=== PATIENT | female | born 1950 | race Caucasian/White ===

== ENCOUNTER 2017-10-02 19:33 | Emergency (ER) | payer OTHER ==
--- OUTSIDE RECORDS SUMMARY | 2017-10-02 19:34 | XMS REPORT | Clinical Summary ---
:1950 Author Organization [facility] Address [address] [place] [id number] Care Team Providers Name Role Phone Domingo Thurman MD Primary Care Provider Allergies Not on File Current Medications Not on file Active Problems Not on file Encounters Date Type Specialty Care Team Description 01/03/2017 Lab Lab Garth Carreon MD Urinary tract infection, site not specified (Primary Dx) after 10/01/2016 Social History Tobacco Use Types Packs/Day Years Used Date Never Assessed Sex Assigned at Date Recorded Not on file Last Filed Vital Signs Not on file Plan of Treatment Health Maintenance Due Date Last Done Comments COLONOSCOPY 1998 MAMMOGRAM 1998 SHINGRIX VACCINE (#1) 1998 ZOSTER VACCINE 2008 PNEUMOCOCCAL POLYSACCHARIDE VACCINE AGE 65 AND OVER 2013 PNEUMOCOCCAL-13 2013 INFLUENZA VACCINE 12/27/2017 Results Gram stain (01/03/2017 3:44 PM) Component Value Ref Range Gram stain result Few WBC's Many Gram positive cocci in pairs Comment: Specimen Information Specimen Source: Urine Specimen Site: See UA Specimen Performing Laboratory Urine [facility] [address] [place] [address] Urine culture (01/03/2017 3:44 PM) Component Value Ref Range Urine culture isolate Enterococcus faecalis >10-5 cfu/ml The performance characteristics of this assay on this isolate were validated by the Microbiology Laboratory at [facility].This source has not been approved by the U.S. Food and Drug Administration.The results are not intended to be used as the sole means for clinical diagnosis or patient management.The Microbiology Laboratory is authorized under the clinical Laboratory Improvement Amendments of 1988 (CLIA-88) to perform high complexity testing. (A) Comment: Specimen Information Specimen Source: Urine Specimen Site: See UA Specimen Performing Laboratory Urine [facility] [address] [place] [id number] Organism Antibiotic Method Susceptibility Enterococcus faecalis Ampicillin LACHO 2 mcg/mL: Susceptible Enterococcus faecalis Nitrofurantoin LACHO <=16 mcg/mL: Susceptible Enterococcus faecalis Levofloxacin LACHO <=1 mcg/mL: Susceptible Enterococcus faecalis Linezolid LACHO <=1 mcg/mL: Susceptible Enterococcus faecalis Minocycline LACHO >8 mcg/mL: Resistant Enterococcus faecalis Tetracycline LACHO >8 mcg/mL: Resistant Enterococcus faecalis Vancomycin LACHO 1 mcg/mL: Susceptible Urinalysis screen and microscopy, with reflex to culture (01/03/2017 3:24 PM) Component Value Ref Range Specimen site Random void Color, UA Straw Appearance, UA Hazy Specific gravity, UA 1.015 1.001 - 1.035 pH, UA 6.0 5.0 - 8.5 Protein, UA Negative Negative Glucose, UA 3+ (A) Negative Ketones, UA Negative Negative Bilirubin, UA Negative Negative Blood, UA Negative Negative Nitrite, UA Negative Negative Urobilinogen, UA <2.0 <2.0 Leukocyte esterase, UA Moderate (A) Negative Epithelial cells, UA <1 /HPF WBC, UA 39 (H) 0 - 4 /HPF RBC, UA <1 0 - 2 /HPF Bacteria, UA Few None seen Yeast, UA None seen Yeast with pseudohyphae, UA None seen Specimen Performing Laboratory Urine [facility] [address] [place] [id number] after 10/01/2016 Insurance Payer Benefit Plan / Group Subscriber ID Type Phone Address [employer] MEDICARE AETNA MEDICARE HMO/PPO [facility] xxxxxxxx O [phone] [address]
[2017-10-02 21:31] LABS: Absolute Lymphocytes (CBC) 2.8 K/uL (0.7-4.9); Absolute Monocytes 0.8 K/uL (0.1-1.3); Absolute Neutrophil 7.2 K/uL (1.8-8.0); Basophils % 0.4 % (0-1.3); Eosinophils % 1.1 % (0-4.4); Hematocrit 42.2 % (36.0-45.0); Lymphocytes % 25.6 % (15.3-44.8); MCH 27.1 pg (27.0-35.0); MCV 81.9 fL (80-100); MPV 7.8 fL (7.6-11.3); RBC Red Blood Cell Count 5.16 M/uL (3.86-4.86)
[2017-10-02 21:43] LABS: Urine Blood TRACE (NEG); Urine Glucose NEGATIVE (NEG); Urine Protein NEGATIVE (NEG); Urine pH 6.5 (5.0-7.0)
[2017-10-02 21:43] LABS: Bicarbonate 26 mEq/L (21-31); Glucose Level 169 mg/dL (65-120); Potassium 3.9 mEq/L (3.6-5.0); Sodium Level 138 mEq/L (135-145)
[2017-10-02 21:49] LABS: ALT/SGPT 13 IU/L (10-60); AST/SGOT 22 IU/L (10-42); Albumin 4.1 g/dL (3.2-5.5); Alkaline Phosphatase 71 IU/L (42-121); BUN Blood Urea Nitrogen 13 mg/dL (6-20); Bilirubin Direct < 0.1 mg/dL (0-0.2); Bilirubin Total 0.4 mg/dL (0.3-1.2); Creatine Phosphokinase 34 IU/L (22-269); Magnesium 1.5 mg/dL (1.8-2.5); Protein, Total 7.1 g/dL (6.0-8.3)
[2017-10-02 21:51] LABS: CKMB Creatine Kinase MB 1.8 ng/ml (0.3-4.0)
[2017-10-02 21:53] LABS: Protime INR 0.92
[2017-10-02] MEDS ORDERED: MAGNESIUM SULFATE 1 gm IVPB 1 GM/100 ML BAG IV ONE (22:41)
--- NOTE | 2017-10-02 22:43 | RAD REPORT ---
EXAM DESCRIPTION: RAD - Chest Single View - 10/02/2017 9:09 pm CLINICAL HISTORY: Chest pain, hypertension COMPARISON: November 1999 TECHNIQUE: AP portable chest image was obtained 2105 hours . FINDINGS: Lungs are clear. Heart and vasculature are normal. No measurable pleural effusion and no p neumothorax. No gross bony abnormality seen. No acute aortic findings suspected. IMPRESSION: No acute cardiopulmonary process. No significant interval changes.
--- NOTE | 2017-10-02 22:49 | ER ---
Nurse's Notes [facility] Name: Faviola Balderas Age: 67 yrs Sex: Female : 1950 Arrival Date: 10/02/2017 Time: 19:34 Bed 5 Private MD: Diagnosis: Headache;Nausea;Essential (primary) hypertension;Hypomagnesemia Presentation: 10/02 19:39 Presenting complaint: Patient states: My BP has been running in the 200s, I have been la1 having palpations and nausea. Transition of care: patient was not received from another setting of care. Onset of symptoms was October 02, 2017. Initial Sepsis Screen: Does the patient meet any 2 criteria? No. Patient's initial sepsis screen is negative. Does the patient have a suspected source of infection? No. Patient's initial sepsis screen is negative. Care prior to arrival: None. 19:39 Method Of Arrival: Wheelchair la1 19:39 Acuity: MORIAH 2 la1 Historical: - Allergies: 19:40 Bactrim; la1 19:40 Macrobid; la1 19:40 Sulfa (Sulfonamide Antibiotics); la1 - PMHx: 19:40 Asthma; Diabetes - IDDM; Hypertension; la1 - Immunization history:: Adult Immunizations up to date. - Social history:: Smoking status: Patient/guardian denies using tobacco. - Family history:: not pertinent. Screenin:14 Abuse screen: Denies threats or abuse. Denies injuries from another. Nutritional ak1 screening: No deficits noted. Tuberculosis screening: No symptoms or risk factors identified. Fall Risk None identified. Assessment: 20:14 General: Appears in no apparent distress. Behavior is calm, cooperative. Pain: ak1 Complains of pain in headache. Neuro: Level of Consciousness is awake, alert, obeys commands, Oriented to person, place, time, situation, Electromyographic Technician are equal bilaterally Moves all extremities. Gait is steady, Speech is normal, Facial symmetry appears normal, Pupils are PERRLA. Cardiovascular: Chest pain is denied. Respiratory: Denies shortness of breath. GI: Abdomen is round Reports nausea. : No signs and/or symptoms were reported regarding the genitourinary system. EENT: No signs and/or symptoms were reported regarding the EENT system. Derm: No signs and/or symptoms reported regarding the dermatologic system. Musculoskeletal: No signs and/or symptoms reported regarding the musculoskeletal system. 22:01 Reassessment: Patient appears in no apparent distress at this time. No changes from ak1 previously documented assessment. Patient is alert, oriented x 3, equal unlabored respirations, skin warm/dry/pink. Vital Signs: 19:40 BP 166 / 77; Pulse 95; Resp 19; Temp 98.0(TE); Pulse Ox 100% on R/A; Weight 92.53 kg; la1 Height 5 ft. 2 in. (157.48 cm); 20:31 BP 169 / 72; Pulse 95; Resp 18; Pulse Ox 99% on R/A; Pain 0/10; ak1 21:22 BP 162 / 61; Pulse 78; Resp 18; Pulse Ox 95% on R/A; Pain 0/10; mg2 22:39 BP 150 / 62; Pulse 72; Resp 18; Pulse Ox 99% on R/A; mt 19:40 Body Mass Index 37.31 (92.53 kg, 157.48 cm) la1 20:31 pt denies headache at this time. pt denies any chest pain. ak1 ED Course: 19:34 Patient arrived in ED. ds1 19:40 Triage completed. la1 19:41 Arm band placed on left wrist. la1 20:11 José Luis Kaufman MD is Attending Physician. regi 20:14 Pricila Cardoso, RN is Primary Nurse. ak1 20:14 Patient has correct armband on for positive identification. Placed in gown. Bed in low ak1 position. Call light in reach. Side rails up X 1. curing finisher on. Pulse ox on. NIBP on. 20:31 Urine collected: EKG done. Inserted saline lock: 20 gauge in right antecubital area, ak1 using aseptic technique. Blood collected. 21:09 XRAY Chest (1 view) In Process Unspecified. EDMS 21:15 Lab(s) recollected, by me, sent to lab. mg2 23:07 No provider procedures requiring assistance completed. Inserted saline lock: 22 gauge mg2 in left hand, using aseptic technique. IV discontinued, intact, Pressure dressing applied, right AC IV infiltrated. IV d/c. resited. Administered Medications: 22:54 Drug: Magnesium Sulfate 1 grams Route: IVPB; Infused Over: 1 hrs; Site: right mg2 antecubital; 10/03 00:20 Follow up: IV Status: Completed infusion ak1 Outcome: 10/02 22:49 Discharge ordered by . regi 10/03 00:20 Discharged to home ambulatory, with family. ak1 Condition: good Discharge instructions given to patient, family, Instructed on discharge instructions, follow up and referral plans. no drinking with medication, no driving heavy equipment, medication usage, Demonstrated understanding of instructions, follow-up care, medications, Prescriptions given X 1. 00:21 Patient left the ED. ak1 Signatures: Dispatcher [employer] EDMS José Luis Kaufman MD MD cha Sanford, Demi ds1 Javier Seth RN RN la1 Pricila Cardoso RN RN sandi1 Kary Palmer mt, Michele RN RN mg2 Corrections: (The following items were deleted from the chart) 10/02 19:41 19:39 Acuity: MORIAH 3 la1 la1 23: 23:07 IV discontinued, intact, Pressure dressing applied, left AC IV infiltrated. IV mg2 d/c. resited. mg2 : 23:07 Inserted saline lock: 22 gauge in left hand, using aseptic technique. mg2 mg2
--- NOTE | 2017-10-02 22:49 | EDPHYS ---
Physician Documentation [facility] Name: Faviola Balderas Age: 67 yrs Sex: Female : 1950 Arrival Date: 10/02/2017 Time: 19:34 Bed 5 Private MD: ED Physician José Luis Kaufman HPI: 10/02 21:09 This 67 yrs old Female presents to ER via Wheelchair with complaints of High regi Blood Pressure, Nausea, Irregular Pulse. 21:09 The patient has elevated blood pressure and discovered this at home. Onset: The regi symptoms/episode began/occurred 2 day(s) ago. Modifying factors: The symptoms are aggravated by activity, The symptoms are alleviated by remaining still. Associated signs and symptoms: Pertinent positives: headache, nausea. Severity of symptoms: At its worst the blood pressure was in the emergency department the blood pressure is unchanged. The patient has not experienced similar symptoms in the past. Historical: - Allergies: 19:40 Bactrim; la1 19:40 Macrobid; la1 19:40 Sulfa (Sulfonamide Antibiotics); la1 - PMHx: 19:40 Asthma; Diabetes - IDDM; Hypertension; la1 - Immunization history:: Adult Immunizations up to date. - Social history:: Smoking status: Patient/guardian denies using tobacco. - Family history:: not pertinent. ROS: 21:09 Constitutional: Negative for fever, chills, and weight loss, Eyes: Negative for injury, regi pain, redness, and discharge, ENT: Negative for injury, pain, and discharge, Neck: Negative for injury, pain, and swelling, Cardiovascular: Negative for chest pain, palpitations, and edema, Respiratory: Negative for shortness of breath, cough, wheezing, and pleuritic chest pain, Back: Negative for injury and pain, : Negative for injury, bleeding, discharge, and swelling, MS/Extremity: Negative for injury and deformity, Skin: Negative for injury, rash, and discoloration, Psych: Negative for depression, anxiety, suicide ideation, homicidal ideation, and hallucinations, Allergy/Immunology: Negative for hives, rash, and allergies, Endocrine: Negative for neck swelling, polydipsia, polyuria, polyphagia, and marked weight changes, Hematologic/Lymphatic: Negative for swollen nodes, abnormal bleeding, and unusual bruising. 21:09 Abdomen/GI: Positive for nausea. 21:09 Neuro: Positive for headache. Exam: 21:09 Constitutional: This is a well developed, well nourished patient who is awake, alert, regi and in no acute distress. Head/Face: Normocephalic, atraumatic. Eyes: Pupils equal round and reactive to light, extra-ocular motions intact. Lids and lashes normal. Conjunctiva and sclera are non-icteric and not injected. Cornea within normal limits. Periorbital areas with no swelling, redness, or edema. ENT: Nares patent. No nasal discharge, no septal abnormalities noted. Tympanic membranes are normal and external auditory canals are clear. Oropharynx with no redness, swelling, or masses, exudates, or evidence of obstruction, uvula midline. Mucous membranes moist. Neck: Trachea midline, no thyromegaly or masses palpated, and no cervical lymphadenopathy. Supple, full range of motion without nuchal rigidity, or vertebral point tenderness. No Meningismus. Chest/axilla: Normal chest wall appearance and motion. Nontender with no deformity. No lesions are appreciated. Cardiovascular: Regular rate and rhythm with a normal S1 and S2. No gallops, murmurs, or rubs. Normal PMI, no JVD. No pulse deficits. Respiratory: Lungs have equal breath sounds bilaterally, clear to auscultation and percussion. No rales, rhonchi or wheezes noted. No increased work of breathing, no retractions or nasal flaring. Abdomen/GI: Soft, non-tender, with normal bowel sounds. No distension or tympany. No guarding or rebound. No evidence of tenderness throughout. Back: No spinal tenderness. No costovertebral tenderness. Full range of motion. Female : Normal external genitalia. Skin: Warm, dry with normal turgor. Normal color with no rashes, no lesions, and no evidence of cellulitis. MS/ Extremity: Pulses equal, no cyanosis. Neurovascular intact. Full, normal range of motion. Neuro: Awake and alert, GCS 15, oriented to person, place, time, and situation. Cranial nerves II-XII grossly intact. Motor strength 5/5 in all extremities. Sensory grossly intact. Cerebellar exam normal. Normal gait. Psych: Awake, alert, with orientation to person, place and time. Behavior, mood, and affect are within normal limits. Vital Signs: 19:40 BP 166 / 77; Pulse 95; Resp 19; Temp 98.0(TE); Pulse Ox 100% on R/A; Weight 92.53 kg; la1 Height 5 ft. 2 in. (157.48 cm); 20:31 BP 169 / 72; Pulse 95; Resp 18; Pulse Ox 99% on R/A; Pain 0/10; ak1 21:22 BP 162 / 61; Pulse 78; Resp 18; Pulse Ox 95% on R/A; Pain 0/10; mg2 22:39 BP 150 / 62; Pulse 72; Resp 18; Pulse Ox 99% on R/A; mt 19:40 Body Mass Index 37.31 (92.53 kg, 157.48 cm) la1 20:31 pt denies headache at this time. pt denies any chest pain. ak1 MDM: 20:11 Patient medically screened. [facility] 21:10 Data reviewed: vital signs, nurses notes, lab test result(s), EKG, radiologic studies, [facility] plain films. 10/02 20:40 Order name: Urine Dipstick--Ancillary (enter results); Complete Time: 22:29 [facility] 10/02 20:41 Order name: Basic Metabolic Panel; Complete Time: 22:29 ct 10/02 20:41 Order name: BNP; Complete Time: 22:29 ct 10/02 20:41 Order name: CBC with Diff; Complete Time: 21:41 ct 10/02 20:41 Order name: Ckmb; Complete Time: 22:29 ct 10/02 20:41 Order name: CPK; Complete Time: 22:29 ct 10/02 20:41 Order name: LFT's; Complete Time: 22:29 ct 10/02 20:41 Order name: Magnesium; Complete Time: 22:29 ct 10/02 20:41 Order name: PT-INR; Complete Time: 22:29 ct 10/02 20:41 Order name: Ptt, Activated; Complete Time: 22:29 ct 10/02 20:41 Order name: Troponin (emerg Dept Use Only); Complete Time: 22:29 ct 10/02 21:08 Order name: TSH; Complete Time: 22:46 [facility] 10/02 22:48 Order name: Ckmb [facility] 10/02 22:48 Order name: Creatine Phosphokinase [facility] 10/02 19:44 Order name: EKG; Complete Time: 19:45 [facility] 10/02 19:44 Order name: EKG - Nurse/Tech; Complete Time: 19:44 [facility] 10/02 20:41 Order name: XRAY Chest (1 view); Complete Time: 22:46 ct 10/02 20:41 Order name: Cardiac monitoring; Complete Time: 20:48 ct 10/02 20:41 Order name: IV Saline Lock; Complete Time: 20:48 ct 10/02 20:41 Order name: Labs collected and sent; Complete Time: 20:48 ct 10/02 20:41 Order name: O2 Per Protocol; Complete Time: 20:48 ct 10/02 20:41 Order name: O2 Sat Monitoring; Complete Time: 20:48 ct 10/02 20:41 Order name: Urine Dipstick-Ancillary (obtain specimen); Complete Time: 20:54 ct 10/02 22:48 Order name: Troponin (emerg Dept Use Only); Complete Time: 00:03 [facility] 10/02 22:48 Order name: Repeat Cardiac Enzymes at: 1050pm; Complete Time: 00:19 [facility] Administered Medications: 22:54 Drug: Magnesium Sulfate 1 grams Route: IVPB; Infused Over: 1 hrs; Site: right mg2 antecubital; 10/03 00:20 Follow up: IV Status: Completed infusion ak1 Disposition: 10/02/17 22:49 Discharged to Home. Impression: Headache, Nausea, Essential (primary) hypertension, Hypomagnesemia. - Condition is Stable. - Discharge Instructions: Hypertension, Hypomagnesemia, Nausea, Adult, Hypertension, [id number], How to Take Your Blood Pressure, Lipq-[id number]-Akkf, Nausea, Adult, [id number], Managing Your High Blood Pressure. - Prescriptions for Zofran 4 mg Oral Tablet - take 1 tablet by ORAL route every 12 hours As needed; 10 tablet. - Medication Reconciliation Form, Thank You Letter, Antibiotic Education, Prescription Opioid Use form. - Follow up: Private Physician; When: 2 - 3 days; Reason: Recheck today's complaints, Continuance of care, Re-evaluation by your physician. - Problem is new. - Symptoms have improved. Signatures: Dispatcher [employer] EDJosé Luis Simms MD MD cha Attema, Lee RN RN amanda1 Pricila Cardoso RN RN sandi1 Kary Palmer ct Bryan Hernandez, RN RN mg2 Corrections: (The following items were deleted from the chart) 00:21 10/02 22:49 10/02/2017 22:49 Discharged to Home. Impression: Headache; Nausea; ak1 Essential (primary) hypertension; Hypomagnesemia. Condition is Stable. Forms are Medication Reconciliation Form, Thank You Letter, Antibiotic Education, Prescription Opioid Use. Follow up: Private Physician; When: 2 - 3 days; Reason: Recheck today's complaints, Continuance of care, Re-evaluation by your physician. Problem is new. Symptoms have improved. regi
[2017-10-02 23:40] LABS: CKMB Creatine Kinase MB 1.6 ng/ml (0.3-4.0)
--- NOTE | 2017-10-03 06:40 | EKG ---
Test Date: 2017-10-02 Test Time: 19:47:47 Rotary Soil Stabilizer: LA MEASUREMENT RESULTS: Intervals: Rate: 95 UT: 164 QRSD: 102 QT: 364 QTc: 457 [place]: P: 68 UT: 164 QRS: -17 T: 78 INTERPRETIVE STATEMENTS: Normal sinus rhythm Normal ECG Compared to ECG 07/19/1994 14:46:00 Myocardial infarct finding no longer present Electronically Signed On 10-03-17 06:40:06 CDT by Jesus Conrad
== END 2017-10-03 00:21 | disposition home or self-care (01) ==
LOC: ER 19:33
DX: I10 Essential (primary) hypertension (principal); R11.0 Nausea; E83.42 Hypomagnesemia; Z88.1 Allergy status to other antibiotic agents; Z88.2 Allergy status to sulfonamides; Z88.8 Allergy status to other drugs, medicaments and biological substances
CPT/HCPCS: 36415; 71045; 80048; 80076; 81003; 82550 ×2; 82553 ×2; 83735; 83880; 84443; 84484 ×2; 85025; 85610; 85730; 93005; 96365; 99285; J3475

== ENCOUNTER 2020-11-28 09:32 | Emergency (ER) | payer OTHER ==
--- OUTSIDE RECORDS SUMMARY | 2020-11-28 09:46 | XMS REPORT | Continuity of Care Document ---
:1950 Author Organization [facility] t Address [address] [place] [address] Care Team Providers Name Role Phone Kylee Thurman MD. Primary Care Physician Aquiles HERNANDEZ, Sondra. Attending Clinician Rolan Weber Attending Clinician Keli Hong Attending Clinician Cristiane Smith MD Attending Clinician Kylee Thurman Attending Clinician Grace Attending Clinician Payers Payer Name Policy Type Policy Effective Date Expiration Date Sour ce Number AETNA MEDICAREAETNA [id number] 2016 [place] on MEDICARE HMO/PPO 00:00:00 Methodis t [id number] -PresentHMO Problems Condition Condition Condition Status Onset Resolution Last Treating Co mments Source Name Details Category Date Date Treatment Clinician Date Q24.0 - Diagnosis Active 2019-052020-03-24 Me moria DEXTROCARD -27 10:33:00 l IA Q24.0 - 00:01: Tru DEXTROCARD 00 IA Active 0 MH OPID Tru DX: Diagnosis Active 2018-11-19 Mem oria K21.9=RIRI 6-14 09:24:00 l RO-ESOPHAG DX: 00:00: Levi n EAL REFLUX K21.9=RIRI 00 DISEA RO-ESOPHAG EAL REFLUX DISEA Active 11/09/2018 [facility] EGD / Diagnosis Active 2018-11-23 Mem oria COLON / 6-11 07:09:00 l MAC EGD / 00:00: [place] COLON / 00 MAC Active 11/06/2018 [facility] Tru Z13.820 - Diagnosis Active 2018-08-27 Memoria ENCOUNTER 3-21 10:14:00 l FOR Z13.820 00:01: Tru SCREENING - 00 FOR OS ENCOUNTER FOR SCREENING FOR OS Active 08/16/2018 [facility] [place] Gastritis Problem Active 2019-11-24 Me moria (disorder) 1-17 23:28:12 l 00:00: [place] Gastritis 00 (disorder) Active 06/14/2016 Problem 11/24/2019 [facility], Haydee Erazo [facility], OPID [place] Recurrent Problem Active 2020-03-26 Me moria urinary 4-23 23:24:24 l tract 00:00: [place] infection Recurrent 00 (disorder) urinary tract infection (disorder) Active 09/18/2014 Problem 03/26/2020 Data migrated from [facility] on 12/03/14. Medical [facility], Haydee Erazo SUDNAY Ott,[facility] OPIDionna [place] GASTRITIS Condition Active 2014-08-14 Memoria 3- 09:00:00 l 00:00: [place] GASTRITIS 00 Active 08/14/2014 Condition 5 Medical Group BURSITIS, Condition Active 2014-08-14 Memoria LEFT 08-14 09:00:00 l SHOULDER 00:00: Tru BURSITIS, 00 LEFT SHOULDER Active 08/14/2014 Condition 5 [facility] VACCINATIO Condition Active 2013-052014-08-14 Memoria N AGAINST 2-03 09:00:00 l INFLUENZA 00:00: Tru VACCINATIO 00 N AGAINST INFLUENZA Active 04/30/2014 Condition 5 [facility] Type II Problem Active 2020-03-26 Myles deni diabetes 9-03 23:24:24 l mellitus Type II 00:00: Marlene nn uncontroll diabetes 00 ed mellitus (finding) uncontroll ed (finding) Active 01/29/2014 Problem 03/26/2020 Data migrated from [employer] on 10/25/14. Medical Group, Haydee Erazo,[facility], [facility] [place] DIABETES Condition Active 2014-08-14 M emoria MELLITUS, 01-29 09:00:00 l TYPE II, DIABETES 00:00: Herm gilberto UNCONTROLL MELLITUS, 00 ED TYPE II, UNCONTROLL ED Active 4 Condition 08/14/2014 Medical Group Edema of Problem Active 2020-03-26 Mem oria lower 06-13 23:24:24 l extremity Edema of 00:00: Her de la garza (finding) lower 00 extremity (finding) Active 06/13/2013 Problem 03/26/2020 Data migrated from [employer] on 10/25/14. Medical [facility], Haydee Erazo,[facility], [facility] Simple Problem Active 2020-03-26 Memor ia obesity 06-13 23:24:24 l (disorder) Simple 00:00: Herm gilberto obesity 00 (disorder) Active 06/13/2013 Problem 03/26/2020 Data migrated from [employer] on 10/25/14. [facility], Haydee Erazo,[facility], [facility] [place] DEPENDENT Condition Active 2014-08-14 Memoria EDEMA, 06-13 09:00:00 l LEGS, 00:00: Tru BILATERAL DEPENDENT 00 EDEMA, LEGS, BILATERAL Active 06/13/2013 Condition 5 Medical Group EXOGENOUS Condition Active 2014-08-14 Memoria OBESITY - 09:00:00 l 00:00: [place] EXOGENOUS 00 OBESITY Active 06/13/2013 Condition 5 [facility] PREVENTIVE Condition Active 2012-052014-08-14 Memoria HEALTH 09:00:00 l CARE 00:00: [place] PREVENTIVE 00 HEALTH CARE Active 03/26/2013 Condition 5 [facility] Group Allergic Problem Active 2020-03-26 Mem oria rhinitis 02-25 23:24:24 l (disorder) Allergic 00:00: He rmann rhinitis 00 (disorder) Active 02/25/2013 Problem 03/26/2020 Data migrated from [employer] on 10/25/14. Medical Group,[facility] Eddie Ott,[facility], [facility] ALLERGIC Condition Active 2014-08-14 M emoria RHINITIS 02-25 09:00:00 l ALLERGIC 00:00: Levi n RHINITIS 00 Active 02/25/2013 Condition 5 Medical Group Hypothyroi Problem Active 2020-03-26 M emoria dism 01-04 23:24:24 l (disorder) 00:00: Levi n Hypothyroi 00 dism (disorder) Active 01/04/2013 Problem 03/26/2020 Data migrated from [employer] on 10/25/14. Medical Group,[facility], Eddie Ott,[facility], [facility] HYPOTHYROI Condition Active 2014-08-14 Memoria DISM 01-04 09:00:00 l 00:00: [place] HYPOTHYROI 00 DISM Active 01/04/[address] [facility] Gastrointe Problem Active 2019-11-24 M emoria stinal 23:28:12 l hemorrhage Levi n (disorder) Gastrointe stinal hemorrhage (disorder) Active Problem 11/24/2019 Medical Group,[facility] Asthma Problem Active 2020-03-26 Memor ia (disorder) 23:24:24 l Asthma Tru (disorder) Active Problem 03/26/2020 Data migrated from [employer] on 10/25/14. Medical Group,[facility], Eddie Ott,[facility], [facility] Dyslipidem Problem Active 2020-03-26 M emoria ia 23:24:24 l (disorder) Levi n Dyslipidem ia (disorder) Active Problem 03/26/2020 Data migrated from [employer] on 10/25/14. Medical Group,[facility], Eddie Ott,[facility], [facility] Gastroesop Problem Active 2020-03-26 M emoria hageal 23:24:24 l reflux Tru disease Gastroesop (disorder) hageal reflux disease (disorder) Active Problem 03/26/2020 Medical Group,[facility] Eddie Ott,[facility], [facility] [place] Hypertensi Problem Active 2020-03-26 M emoria ve 23:24:24 l disorder, Tru systemic Hypertensi arterial ve (disorder) disorder, systemic arterial (disorder) Active Problem 03/26/2020 Data migrated from [facility] on 10/25/14. Medical Group,[facility] Eddie Ott,[facility], [facility] [place] Trochanter Problem Active 2020-03-26 M emoria ic 23:24:24 l bursitis Tru (disorder) Trochanter ic bursitis (disorder) Active Problem 03/26/2020 Medical Group,[facility] Eddie Ott,[facility], [facility] [place] HYPERTENSI Condition Active 2014-08-14 Memoria ON 09:00:00 l Tru HYPERTENSI ON Active Condition 08/14/2014 Medical Group DYSLIPIDEM Condition Active 2014-08-14 Memoria IA 09:00:00 l Tru DYSLIPIDEM IA Active Condition 08/14/2014 Medical Group ASTHMA, Condition Active 2014-08-14 Me moria UNSPECIFIE 09:00:00 l D, ASTHMA, [place] UNSPECIFIE UNSPECIFIE D STATUS D, UNSPECIFIE D STATUS Active Condition 08/14/2014 Medical Group ACQUIRED Condition Active 2014-08-14 M emoria HEMOLYTIC 09:00:00 l ANEMIA ACQUIRED Levi n UNSPECIFIE HEMOLYTIC D ANEMIA UNSPECIFIE D Active Condition 08/14/2014 Medical Group DM Condition Inactiv 2014-08-14 Me moria e 09:00:00 l DM Tru Inactive Condition 5 Medical Group Disease of Problem Resolve 2020-03-26 Memoria thyroid d 23:24:24 l gland Disease [place] (disorder) of thyroid gland (disorder) Resolved Problem 03/26/2020 [facility] Group, [place], Eddie Ott,[facility], [facility] [place] History of Past Illness Condition Condition Condition Status Onset Resolution Last Treating Co mments Source Name Details Category Date Date Treatment Clinician Date DIARRHEA, Condition Inactiv 2012-2014-08-14 2014-08-14 Memoria CHRONIC e 02-25 09:00:00 09:00:00 l 00:00: Tru DIARRHEA, 00 CHRONIC Inactive 02/25/2013 Condition 5 [facility] Group ABDOMINAL Condition Inactiv 2014-08-14 2014-08-14 Memoria PAIN e 01-04 09:00:00 09:00:00 l 00:00: [place] ABDOMINAL 00 PAIN Inactive 01/04/2013 Condition 5 Medical Group PALPITATIO Condition Inactiv 2014-08-14 2014-08-14 Memoria NS e 01-04 09:00:00 09:00:00 l 00:00: [place] PALPITATIO 00 NS Inactive 01/04/2013 Condition 5 [facility] Group Allergies, Adverse Reactions, Alerts Allergy Allergy Status Severity Reaction(s) Onset Inactive Treating Comm ents Source Name Type Date Date Clinician sulfa sulfa Active Memoria drugs<quinones drugs<quinones l p>1</sup p>1</sup Levi n > > nitrofur nitrofur Active Memori a antoin antoin l Tru SULFA SULFA Active Memoria l [place] Social History Social Habit Start Date Stop Date Quantity Comments Source Social History 2018-11-23 2018-11-23 [facility] ermann 15:44:53 15:44:53 Sex [birth year] At [birth year] [facility] ethodist 00:00:00 00:00:00 Medications Ordered Filled Start Stop Current Ordering Indication Dosage Frequency Signature Comments Components Source Medication Medication Date Date Medication? Clinician (SIG) Name Name valacyclovi 2019-0 Yes 1 gm = 1 Me moria r 1000 MG 7-14 tab, PO, l Oral Tablet 19:42: BID, # 30 H ermann [Valtrex] 00 tab, 1 Refill(s), Pharmacy: [facility] #[id number], 157.48, cm, 12/10/19 10:52:00 CDT, Height, 98.182, kg, 12/10/19 10:52:00 CDT, Weight liothyronin 2019- Yes = 1 tab, Me moria e 25 mcg 7-14 PO, Daily, l oral tablet 19:41: # 90 tab, H ermann 00 3 Refill(s), Pharmacy: [facility] #[id number], 157.48, cm, 07/14/20 10:52:00 CDT, Height, 98.182, kg, 12/10/19 10:52:00 CDT, Weight montelukast 2020-0 Yes = 1 tab, Me moria 10 mg oral 7-14 PO, Daily, l tablet 19:41: # 90 tab, Levi n 00 3 Refill(s), Pharmacy: [facility] cy #[id number], 157.48, cm, 12/10/19 10:52:00 CDT, Height, 98.182, kg, 12/10/19 10:52:00 CDT, Weight pantoprazol 2020-0 Yes = 1 tab, Me moria e 40 mg 7-14 PO, BID, # l oral 19:41: 180 tab, 3 [place] enteric 00 Refill(s), coated Pharmacy: [id number], 157.48, cm, 12/10/19 10:52:00 CDT, Height, 98.182, kg, 12/10/19 10:52:00 CDT, Weight sitagliptin 2019- Yes = 1 tab, Me moria 100 MG Oral 7-14 PO, Daily, l Tablet 19:41: # 90 tab, Levi n [Januvia] 00 3 Refill(s), Pharmacy: [facility] #[id number], 157.48, cm, 12/10/19 10:52:00 CDT, Height, 98.182, kg, 12/10/19 10:52:00 CDT, Weight 3 ML 2019-0 Yes See Memoria insulin 7-14 Instructio l detemir 100 19:40: ns, INJECT [place] UNT/ML 00 50 UNITS Prefilled SUB-Q AM Syringe AND 30 [Levemir] UNITS IN THE EVENING ROTATE INJECTION SITES, # 15 mL, 6 Refill(s), MELA, Pharmacy: [id number], 157.48, cm, 12/10/19 10:52:00 CDT, Height, 98.182, kg, 12/10/19 10:52:00 CDT, Weight Levothyroxi 2020-0 Yes 125 Memori a ne Sodium 7-14 microgram l 0.125 MG 19:40: = 1 tab, Marlene nn Oral Tablet 00 PO, Daily, [Synthroid] X 90 day, # 90 tab, 3 Refill(s), MELA, Pharmacy: [id number], 157.48, cm, 12/10/19 10:52:00 CDT, Height, 98.182, kg, 12/10/19 10:52:00 CDT, Weight Advair 2020-0 Yes 1 puff, Memoria Diskus 250 7-14 INHALATION l mcg-50 mcg 19:39: , BID, # 3 H ermann inhalation 00 ea, 3 powder Refill(s), Pharmacy: [id number], 157.48, cm, 12/10/19 10:52:00 CDT, Height, 98.182, kg, 12/10/19 10:52:00 CDT, Weight glyBURIDE 5 2020-0 Yes 10 mg = 2 M emoria mg oral 7-14 tab, PO, l tablet 19:39: BID, # 360 Marlene nn 00 tab, 3 Refill(s), Pharmacy: [id number], 157.48, cm, 12/10/19 10:52:00 CDT, Height, 98.182, kg, 12/10/19 10:52:00 CDT, Weight Hydrochloro 2020-0 Yes 1 cap, PO, Memoria thiazide 25 7-14 Daily, # l MG / 19:39: 90 cap, 3 Tru Triamterene 00 Refill(s), 37.5 MG Pharmacy: [id number], 157.48, cm, 12/10/19 10:52:00 CDT, Height, 98.182, kg, 12/10/19 10:52:00 CDT, Weight Amlodipine 2020-0 Yes 1 cap, PO, M emoria 10 MG / 7-14 Daily, # l Benazepril 19:38: 90 cap, 3 He rmann hydrochlori 00 Refill(s), de 40 MG Pharmacy: [id number], 157.48, cm, 12/10/19 10:52:00 CDT, Height, 98.182, kg, 12/10/19 10:52:00 CDT, Weight atorvastati 2020-0 Yes 10 mg = 1 M emoria n 10 mg 7-14 tab, PO, l oral tablet 19:38: Daily, # He rmann 00 90 tab, 3 Refill(s), MELA, Pharmacy: [facility] #[id number], 157.48, cm, 12/10/19 10:52:00 CDT, Height, 98.182, kg, 12/10/19 10:52:00 CDT, Weight carvedilol 2020-0 Yes = 1 tab, Mem oria 12.5 mg 7-14 PO, Q12H, l oral tablet 19:38: # 180 tab, [place] 00 3 Refill(s), Pharmacy: [facility] #6704, 157.48, cm, 12/10/19 10:52:00 CDT, Height, 98.182, kg, 12/10/19 10:52:00 CDT, Weight 24 HR 2019-0 Yes 4 mg = 1 Memoria Fesoterodin 7-14 tab, PO, l e Fumarate 19:38: Daily, # de la garza 4 MG 00 90 tab, 3 Extended Refill(s), Release Pharmacy: [facility] [[facility]] cy #[id number], 157.48, cm, 12/10/19 10:52:00 CDT, Height, 98.182, kg, 12/10/19 10:52:00 CDT, Weight Amlodipine 2019-0 Yes 1 cap, PO, M emoria 10 MG / 6-26 Daily, # l Benazepril 19:25: 90 unknown H ermann hydrochlori 00 unit, 0 de 40 MG Refill(s), Oral Pharmacy: [id number], 157.48, cm, 04/02/19 10:55:00 MAGICIAN HELPER, Height, 94.545, kg, 04/02/19 10:55:00 MAGICIAN HELPER, Weight Levothyroxi 2019-0 Yes See Memori a ne Sodium 6-19 Instructio l 0.125 MG 18:59: ns, TAKE 1 Her de la garza Oral Tablet 00 TABLET BY [Synthroid] MOUTH EVERY DAY, # 90 tab, 0 Refill(s), MELA, Pharmacy: [facility] STORE 26297, 157.48, cm, 04/02/19 10:55:00 MAGICIAN HELPER, Height, 94.545, kg, 04/02/19 10:55:00 MAGICIAN HELPER, Weight carvedilol 2020-0 Yes = 1 tab, Mem oria 12.5 mg 6-17 PO, Q12H, l oral tablet 18:04: # 180 tab, Tru 00 0 Refill(s), Pharmacy: [facility] STORE 96414, 157.48, cm, 04/02/19 10:55:00 MAGICIAN HELPER, Height, 94.545, kg, 04/02/19 10:55:00 MAGICIAN HELPER, Weight sitagliptin Yes = 1 tab, Me moria 100 MG Oral 6-17 PO, Daily, l Tablet 13:40: # 90 tab, Levi n [Januvia] 00 0 Refill(s), Pharmacy: [facility]ORE 39110, 157.48, cm, 04/02/19 10:55:00 MAGICIAN HELPER, Height, 94.545, kg, 04/02/19 10:55:00 MAGICIAN HELPER, Weight 3 ML Yes See Memoria insulin 5-01 Instructio l detemir 100 13:27: ns, # 75 He rmann UNT/ML 25 syr, Prefilled Refill(s) Syringe 2, INJECT [Levemir] 50 UNITS SUB-Q AM AND 30 UNITS IN THE EVENING ROTATE INJECTION SITES, MELA, Pharmacy: [facility][id number] 3 ML 2018- Yes See Memoria insulin 1-05 Instructio l detemir 100 17:12: ns, 50 Herm gilberto UNT/ML 44 units SQ Prefilled in AM and Syringe 30 units [Levemir] in PM rotate injection sites, # 45 mL, 3 Refill(s), MELA, Pharmacy: [facility][id number] glyBURIDE 5 2018- Yes 10 mg = 2 M emoria mg oral 8-06 tab, PO, l tablet 16:45: BID, # 360 Marlene nn 18 tab, 3 Refill(s), Pharmacy: [facility]6704 glyBURIDE 5 2018- Yes See Memori a mg oral 7-31 Instructio l tablet 13:27: ns, # 270 Levi n 34 tab, Refill(s) 3, TAKE 2 TABLETS BY MOUTH EVERY MORNING AND 1 TABLET IN THE EVENING, Pharmacy: [facility] #6704 Sodium 2018-0 No 1,000 mL, Memori a Chloride 6-28 Rate: 25 l 0.9% IV 12:39: ml/hr, [place] 1,000 mL 00 Infuse over: 40 hr, Route: IV, Dosing Weight 94.545 kg, Total Volume: 1,000, Start date: 11/23/18 7:39:00 CDT, Duration: 30 day, Stop date: 12/23/18 7:38:00 CDT, 2.07, m2, 0 Calcium 2019- No 1,000 mL, Memor ia Chloride 6-28 Rate: 25 l 0.0014 12:38: ml/hr, [place] MEQ/ML / 00 Infuse Potassium over: 40 Chloride hr, Route: 0.004 IV, Dosing MEQ/ML / Weight Sodium 94.545 kg, Chloride Total 0.103 Volume: MEQ/ML / 1,000, Sodium Start Lactate date: 0.028 11/23/18 MEQ/ML 7:38:00 Injectable CDT, Solution Duration: 30 day, Stop date: 12/23/18 7:37:00 CDT, 2.07, m2, 0 pantoprazol 2018- Yes 40 mg = 1 M emoria e 40 mg 5-28 tab, PO, l oral 17:04: BID, # 180 Tru enteric 00 tab, 0 coated Refill(s), tablet Pharmacy: [facility][id number] 3 ML 2018-0 Yes See Memoria insulin 4-12 Instructio l detemir 100 19:19: ns, 50 Herm gilberto UNT/ML 00 units q Prefilled AM- 30 Syringe units q [Levemir] PM, # 60 mL, 5 Refill(s), Pharmacy: [facility]6704 0.5 ML 2019-0 Yes 0.5 mL, Memoria Varicella 3-20 IM, ONCE, l zoster 16:58: # 1 mL, 1 Levi n virus 00 Refill(s) glycoprotei n E, recombinant 0.1 MG/ML Injection [Shingrix] 0.5 ML 2019-0 Yes 0.5 ml, Memoria Bordetella 3-20 IM, ONCE, l pertussis 16:58: # 1 mL, 0 Her de la garza filamentous 00 Refill(s) hemagglutin in vaccine, inactivated 0.01 MG/ML / Bordetella pertussis fimbriae 2/3 vaccine, inactivated 0.01 MG/ML / Bordetella pertussis pertactin vaccine, inactivated 0.006 MG/ML / Bordetella pertussis toxoid vacci sitagliptin 2018- Yes 100 mg = 1 Memoria 100 MG Oral 3-20 tab, PO, l Tablet 16:55: Daily, # Tru [Januvia] 39 90 tab, 3 Refill(s), Pharmacy: [facility] #6704 montelukast 2018- Yes 10 mg = 1 M emoria 10 mg oral 3-20 tab, PO, l tablet 16:54: Daily, Tru 48 TAKE 1 TABLET BY MOUTH EVERY DAY, # 90 tab, 3 Refill(s), Pharmacy: [facility] #6704 liothyronin 2018- Yes 25 Memori a e 25 mcg 3-20 microgram l oral tablet 16:54: = 1 tab, He rmann 26 PO, Daily, # 90 tab, 3 Refill(s), Pharmacy: [facility] #6704 Levothyroxi Yes 125 Memori a ne Sodium 3-20 microgram l 0.125 MG 16:53: = 1 tab, Marlene nn Oral Tablet 57 PO, Daily, [Synthroid] # 90 tab, 3 Refill(s), Pharmacy: [facility] #6704 Hydrochloro 2018- Yes 1 cap, PO, Memoria thiazide 25 3-20 Daily, # l MG / 16:53: 90 cap, 3 Tru Triamterene 19 Refill(s), 37.5 MG Pharmacy: [facility] Advair Yes 1 puff, Memoria Diskus 250 3-20 INHALATION l mcg-50 mcg 16:52: , BID, # 3 H ermann inhalation 28 ea, 3 powder Refill(s), Pharmacy: [facility] carvedilol 2018- Yes 12.5 mg = Me moria 12.5 mg 3-20 1 tab, PO, l oral tablet 16:51: Q12H, # Her de la garza 03 180 tab, 3 Refill(s), Pharmacy: [facility] #6704 Amlodipine 2018- Yes 1 cap, PO, M emoria 10 MG / 3-20 Daily, # l Benazepril 16:50: 90 cap, 3 He rmann hydrochlori 20 Refill(s), de 40 MG Pharmacy: [id number] 3 ML Yes See Memoria insulin 3-20 Instructio l detemir 100 16:48: ns, 50 Herm gilberto UNT/ML 30 units q Prefilled AM- 30 Syringe units q [Levemir] PM, # 60 mL, 5 Refill(s), Pharmacy: [facility]6704 atorvastati Yes 10 mg = 1 M emoria n 10 mg 3-20 tab, PO, l oral tablet 16:48: Bedtime, # Tru 00 90 tab, 1 Refill(s), Pharmacy: [facility] #6704 Aspirin 81 2018- Yes 81 mg = 1 Me moria MG Enteric 3-20 tab, PO, l Coated 16:12: Daily, # [place] Tablet 00 90 tab, 3 Refill(s) multivitami Yes Daily, 0 Me moria n 3-20 Refill(s) l 16:12: Tru 00 Vitamin D3 Yes 0 Memoria 3-20 Refill(s) l 16:12: [place] 00 Fish Oil Yes PO, 0 Memoria 3-20 Refill(s) l 16:12: Tru 00 Levothyroxi No See Memori a ne Sodium 2-18 Instructio l 0.125 MG 20:04: ns, TAKE 1 Her de la garza Oral Tablet 00 TABLET BY [Synthroid] MOUTH EVERY DAY, # 90 tab, 3 Refill(s), Pharmacy: [facility] #6704 Advair No See Memoria Diskus 250 2-18 Instructio l mcg-50 mcg 19:59: ns, TAKE 1 H ermann inhalation 00 PUFF TWICE powder A DAY, # 180 unit, 2 Refill(s), Pharmacy: [facility] #6704 24 HR Yes See Memoria Fesoterodin 1-25 Instructio l e Fumarate 19:39: ns, TAKE 1 H ermann 4 MG 00 TABLET BY Extended MOUTH Release EVERY DAY, Tablet # 90 tab, [Toviaz] 3 Refill(s), Pharmacy: [facility] #[id number] 3 ML No 100 units, Memoria insulin 1-25 SUB-Q, l detemir 100 14:53: Bedtime, He rmann UNT/ML 00 50 u am 30 Prefilled u pm Syringe rotate [Levemir] injection sites, # 15 mL, 3 Refill(s), Pharmacy: [facility] #[id number] 3 ML No See Memoria insulin 1-23 Instructio l detemir 100 18:23: ns, 50 Herm gilberto UNT/ML 00 units q Prefilled AM- 30 Syringe units q [Levemir] PM, # 100 mL, 11 Refill(s), Pharmacy: [facility] #6704 montelukast No See Memori a 10 mg oral 1-17 Instructio l tablet 18:52: ns, TAKE 1 Marlene nn 00 TABLET EVERY DAY, # 90 tab, 11 Refill(s), Pharmacy: [facility] #6704 fluconazole 2017-05 No 150 mg = 1 Memoria 150 mg oral 2-31 tab, PO, l tablet 19:24: Q72H, Take Marlene nn 00 one tablet then repeat the dose in 72 hrs, # 2 tab, 0 Refill(s), Pharmacy: [facility]6704 Cefuroxime 2017-05 No 250 mg = 1 M emoria 250 MG Oral 2-26 tab, PO, l Tablet 18:52: BID, X 7 Tru 00 day, # 14 tab, 0 Refill(s), Pharmacy: [facility][id number] glyBURIDE 5 2017-05 Yes 10 mg = 2 M emoria mg oral 2-26 tab, PO, l tablet 12:35: BID-Meals, Marlene nn 21 # 360 tab, 0 Refill(s), Pharmacy: [facility]6704 BD UF SHORT 2017-05 Yes See Memori a PEN NEEDLE 1-30 Instructio l [id number] 19:33: ns, # 300 Marlene nn 47 syr, Refill(s) 2, USE TWICE DAILY, Pharmacy: [facility] #[id number] glyBURIDE 5 2017-05 No = 1 tab, Me moria mg oral 1-16 PO, BID, # l tablet 15:22: 180 tab, [place] 19 Refill(s) 3, 05/23/18 6:35:21 MAGICIAN HELPER, Pharmacy: [email or web address] #6704 sitagliptin No See Memori a 100 MG Oral 9-18 Instructio l Tablet 21:25: ns, TAKE 1 Marlene nn [Januvia] 00 TABLET BY MOUTH DAILY, # 90 tab, 1 Refill(s), Pharmacy: [facility] #6704 carvedilol No 12.5 mg = Me moria 12.5 mg 9-05 1 tab, PO, l oral tablet 18:29: Q12H, # de la garza 39 180 tab, 3 Refill(s), Pharmacy: [facility] #6704 Hydrochloro Yes See Memori a thiazide 25 8-20 Instructio l MG / 17:22: ns, TAKE 1 [place] Triamterene 00 CAPSULE 37.5 MG EVERY DAY, Oral # 90 tab, Capsule 3 Refill(s), Pharmacy: [facility] #6704 Levothyroxi Yes See Memori a ne Sodium 8-20 Instructio l 0.125 MG 17:22: ns, TAKE 1 Her de la garza Oral Tablet 00 TABLET BY [Synthroid] MOUTH EVERY DAY, # 90 tab, 3 Refill(s), Pharmacy: [facility] #6704 carvedilol No 12.5 mg = Me moria 12.5 mg 8-01 1 tab, PO, l oral tablet 16:54: Q12H, X 30 Tru 00 day, # 60 tab, 1 Refill(s), Pharmacy: [facility] #6704 carvedilol No 12.5 mg = Me moria 12.5 mg 8-01 1 tab, PO, l oral tablet 15:47: Q12H, # 60 [place] 00 tab, 0 Refill(s), Pharmacy: [facility] #6704 metoprolol No 50 mg = 1 Me moria 50 mg oral 8-01 tab, PO, l tablet, 15:27: Daily, # Levi n extended 00 30 tab, 0 release Refill(s) Amlodipine Yes See Memoria 10 MG / 6-01 Instructio l Benazepril 15:28: ns, TAKE Her de la garza hydrochlori 00 ONE de 40 MG CAPSULE BY Oral MOUTH Capsule EVERY MORNING, # 90 tab, 3 Refill(s), Pharmacy: [facility] #6704 liothyronin Yes See Memori a e 25 mcg 6-01 Instructio l oral tablet 15:28: ns, TAKE 1 [place] 00 TABLET BY MOUTH DAILY, # 90 tab, 3 Refill(s), Pharmacy: [email or web address][id number] 24 HR Yes See Memoria Fesoterodin 3-27 Instructio l e Fumarate 13:43: ns, # 90 Her de la garza 4 MG 31 tab, Extended Refill(s) Release 3, TAKE 1 Tablet TABLET BY [Toviaz] MOUTH EVERY DAY, Pharmacy: [email or web address] #[id number] BD Yes See Memoria ULTRA-FINE 3-19 Instructio l PEN NDL 14:27: ns, # 300 Marlene nn [id number] 48 syr, Refill(s) 2, USE TWICE DAILY, Pharmacy: [facility] #6704 ondansetron Yes See Memori a 4 mg oral 3-01 Instructio l tablet 16:25: ns, # 20 [place] 53 tab, Refill(s) 3, TAKE ONE TABLET BY MOUTH EVERY 6 HOURS NEEDED, Pharmacy: [facility] #[id number] montelukast Yes 10 mg = 1 M emoria 10 mg oral 2-12 tab, PO, l tablet 16:33: Daily, Tru 00 TAKE 1 TABLET BY MOUTH EVERY DAY, # 90 tab, 3 Refill(s), Pharmacy: [facility] #[id number] 3 ML Yes See Memoria insulin 2-08 Instructio l detemir 100 21:42: ns, 50 Herm gilberto UNT/ML 00 units q Prefilled AM- 30 Syringe units q [Levemir] PM, # 100 mL, 11 Refill(s), Pharmacy: [facility] #[id number] 3 ML No 1 unit, Memoria insulin 2-08 SUB-Q, l detemir 100 15:32: Bedtime, # [place] UNT/ML 00 3 mL, 0 Prefilled Refill(s), Syringe Pharmacy: [Levemir] [email or web address] #[id number] Advair Yes See Memoria Diskus 250 2-05 Instructio l mcg-50 mcg 19:32: ns, # 180 He rmann inhalation 57 unknown powder unit, Refill(s) 2, TAKE 1 PUFF TWICE A DAY, Pharmacy: [email or web address] #[id number] valacyclovi No 500 mg = 1 Memoria r 500 MG 1-19 tab, PO, l Oral Tablet 20:31: Q12H, X 7 H ermann [Valtrex] 00 day, # 14 tab, 1 Refill(s), [facility]acy: [id number] Hydrochloro 2016-05 Yes See Memori a thiazide 25 2-01 Instructio l MG / 14:51: ns, # 90 Tru Triamterene 01 unknown 37.5 MG unit, Oral Refill(s) Capsule 2, TAKE 1 CAPSULE EVERY DAY, Pharmacy: [facility] #[id number] JANUVIA 100 Yes TAKE 1 Myles deni MG TABS 3-19 TABLET BY l 09:00: MOUTH Tru DAILY ESTRADIOL 2 Yes Memori a MG TABS 3-19 l 09:00: [place] ADVAIR Yes TAKE 1 Memoria DISKUS 3-19 DOSE TWICE l 250-50 09:00: A DAY [place] MCG/DOSE 00 AEPB SINGULAIR Yes TAKE 1 Memori a 10 MG TABS 3-19 TABLET BY l 09:00: MOUTH Tru DAILY ZOFRAN 4 MG Yes one q 6 h M emoria TABS 3-19 prn l 00:00: [place] 00 OMEPRAZOLE- 2013-05 Yes one daily M emoria SODIUM 2-04 before l BICARBONATE 00:00: supper Herm gilberto 40-1100 MG 00 CAPS SINGULAIR 2013-05 Yes TAKE 1 Memori a 10 MG TABS 2-03 TABLET BY l 09:30: MOUTH Tru 00 DAILY TESSALON 2013-05 No 2 tabs q 6 Mem oria PERLES 100 0-06 h prn l MG CAPS 00:00: [place] 00 ADVAIR Yes TAKE 1 Memoria DISKUS 9-03 DOSE TWICE l 250-50 08:30: A DAY Tru MCG/DOSE 33 AEPB MACROBID No 1 tablet Memor ia 100 MG CAPS 6-10 twice day l 00:00: Tru 00 JANUVIA 100 Yes TAKE 1 Myles deni MG TABS 6-04 TABLET BY l 09:10: MOUTH Tru 00 DAILY ESTRADIOL 2 Yes Memori a MG TABS 6-04 l 08:25: [place] 41 AMLODIPINE Yes one q am Mem oria BESY-BENAZE 4-16 l PRIL HCL 00:00: [place] 10-40 MG 00 CAPS AMLODIPINE Yes one q am Mem oria BESY-BENAZE 4-16 l PRIL HCL 00:00: Tru 1040 MG CAPS NIFEDIPINE No one daily Me moria ER OSMOTIC 4-07 l 90 MG 00:00: Tru [id number] TRAMADOL No one q 6h Memor ia HCL 50 MG 4-07 prn l TABS 00:00: TRAMADOL No one q 6h Memor ia HCL 50 MG 4-07 prn l TABS 00:00: TRAMADOL Yes one q 6h Memor ia HCL 50 MG 4-07 prn l TABS 00:00: TRAMADOL No one q 6h Memor ia HCL 50 MG 4-07 prn l TABS 00:00: TRAMADOL No one q 6h Memor ia HCL 50 MG 4-07 prn l TABS 00:00: PEN NEEDLES Yes Use as Myles deni 5/16" 31G X 4-01 directed l 8 MM MISC 00:00: once day in the morning LEVEMIR Yes Injects 50 Myles deni FLEXPEN 100 3-28 units l UNIT/ML 00:00: every [facility] morning before breakfast & 30 Units before supper LEVEMIR Yes Injects 50 Myles deni FLEXPEN 100 3-28 units l UNIT/ML 00:00: every [facility] morning before breakfast. LEVEMIR Yes Injects 50 Myles deni FLEXPEN 100 3-28 units l UNIT/ML 00:00: every [place] SOLN morning before breakfast & 30 Units before supper DETROL LA 4 No TAKE 1 Myles deni MG 3-26 TABLET BY l [id number] 00:00: MOUTH DAILY DIOVAN 320 No one daily Me moria MG TABS 3-26 l 00:00: DYAZIDE Yes one tablet Myles deni 37.5-25 MG 3-26 daily l CAPS 00:00: DIOVAN 320 No one daily Me moria MG TABS 3-26 l 00:00: [place] 00 DETROL LA 4 No TAKE 1 Myles deni MG 3-26 TABLET BY l [id number] 00:00: MOUTH [place] 00 DAILY DETROL LA 4 No TAKE 1 Myles deni MG 3-26 TABLET BY l [id number] 00:00: MOUTH [place] DAILY DIOVAN 320 No one daily Me moria MG TABS 3-26 l 00:00: [place] 00 TOVIAZ 4 MG Yes one daily M emoria [id number] 2-20 l 00:00: Tru 00 DIOVAN HCT No one daily Me moria 160-12.5 MG 1-31 in pm. l TABS 00:00: DIOVAN HCT No one tablet M emoria 80-12.5 MG 1-31 twice day l TABS 00:00: DIOVAN HCT No one tablet M emoria 80-12.5 MG 1-31 twice day l TABS 00:00: Tru 00 DIOVAN HCT No one daily Me moria 160-12.5 MG 1-31 in pm. l TABS 00:00: LOTREL 5-40 2012-05 No TAKE 1 Myles deni MG CAPS 2-03 CAPSULE BY l 00:00: MOUTH DAILY GLYBURIDE-M 2012-05 No TAKE 1 Myles deni ETFORMIN 0-30 TABLET BY l 5-500 MG 00:00: MOUTH Tru TABS 00 THREE TIMES A DAY DIABETA 5 2012-05 Yes one bid Memor ia MG TABS 0-30 l 00:00: AMLODIPINE 2012-05 No one daily Me moria BESY-BENAZE 0-30 l PRIL HCL 00:00: Tru 10-40 MG 00 CAPS AMLODIPINE 2012-05 No one daily Me moria BESY-BENAZE 0-30 l PRIL HCL 00:00: [place] 10-40 MG 00 CAPS FLONASE 50 Yes bid each Mem oria MCG/ACT 9-30 nostril. l SUSP 00:00: BENZONATATE No one tab q M emoria 100 MG CAPS 9-30 6h prn l 00:00: cough. [place] 00 DIABETA 5 No one bid Memor ia MG TABS 9-30 before l 00:00: meals. FLONASE 50 Yes bid each Mem oria MCG/ACT 9-30 nostril. l SUSP 00:00: BENZONATATE No one tab q M emoria 100 MG CAPS 9-30 6h prn l 00:00: cough. BENZONATATE No one tab q M emoria 100 MG CAPS 9-30 6h prn l 00:00: cough. SYNTHROID Yes 1 tablet Myles deni 100 MCG 9-04 daily l TABS 00:00: SYNTHROID Yes 1 tablet Myles deni 100 MCG 9-04 daily l TABS 00:00: SYNTHROID Yes 1 tablet Myles deni 100 MCG 9-04 daily l TABS 00:00: SYNTHROID Yes 1 tablet Myles deni 100 MCG 9-04 daily l TABS 00:00: ZEGERID No 1 tablet Memori a 40-1100 MG 8-09 daily l CAPS 00:00: LATANOPROST Yes 1 drop at M emoria 0.005 % 8-09 night l SOLN 00:00: EQL FISH Yes Memoria OIL 1200 MG 8-09 l CAPS 00:00: ASPIRIN 81 Yes 1 tablet Mem oria MG TABS 8-09 daily l 00:00: [facility] VITAMIN Yes Memori a D3 1000 8-09 l UNIT CAPS 00:00: CENTRUM Yes Memoria SILVER 8-09 l ULTRA 00:00: WOMENS TABS 00 PROBIOTIC No Memoria CAPS 8-09 l 00:00: FLAGYL 500 No one TID. Mem oria MG TABS 8-09 l 00:00: ZOFRAN 8 MG No One q 6 h M emoria TABS 8-09 prn l 00:00: ZEGERID No 1 tablet Memori a 40-1100 MG 8-09 daily l CAPS 00:00: LATANOPROST Yes 1 drop at M emoria 0.005 % 01-04 night l SOLN 00:00: TRIBENZOR No TAKE 1 Memori a 20-5-12.5 4-29 TABLET BY l MG TABS 00:00: MOUTH DAILY PROCARDIA No TAKE 1 Memori a XL 60 MG 4-29 TABLET BY l [id number] 00:00: MOUTH DAILY LIOTHYRONIN Yes 1 tablet Me moria E SODIUM 25 4-17 daily l MCG TABS 00:00: SYNTHROID No 1 tablet Myles deni 100 MCG 4-17 daily l TABS 00:00: SYNTHROID No 1 tablet Myles deni 100 MCG 4-17 daily l TABS 00:00: SYNTHROID No 1 tablet Myles deni 100 MCG 4-17 daily l TABS 00:00: SYNTHROID No 1 tablet Myles deni 100 MCG 4-17 daily l TABS 00:00: LIOTHYRONIN Yes 1 tablet Me moria E SODIUM 25 4-17 daily l MCG TABS 00:00: Immunizations Ordered Immunization Filled Immunization Date Status Commen ts Source Name Name PFIZER COVID-19 MRNA 2020-06-23 Completed [place] [facility] PFIZ[facility] COVID-19 MRNA 2020-06-02 Completed [place] [facility] 00:[facility]:00 [facility] Vital Signs Vital Name Observation Time Observation Value Comments Source Systolic (mm Hg) 2019-12-10 15:52:00 Myles rial Tru Diastolic (mm Hg) 2019-12-10 15:52:00 [facility] orial [place] Heart Rate 2019-12-10 15:52:00 [facility] 2019-12-10 15:52:00 157[facility]48 [facility] Weight 2019-12-10 15:52:00 [facility] BMI Calculated 2019-12-10 15:52:00 Alley Silva Systolic (mm Hg) 2019-04-02 16:55:00 Myles rial Tru Diastolic (mm Hg) 2019-04-02 16:55:00 [facility] orial Tru Heart Rate 2019-04-02 16:55:00 [facility] Tru Height 2019-04-02 16:55:00 157.48 cm [facility] [place] Weight 2019-04-02 16:55:00 [facility] [place] BMI Calculated 2019-04-02 16:55:00 [facility] al [place] BMI Calculated 2019-01-01 16:24:00 [facility] al [place] Weight 2019-01-01 16:24:00 [facility] [place] Height 2019-01-01 16:24:00 157.48 cm [facility] [place] Heart Rate 2019-01-01 16:24:00 [facility] [place] Systolic (mm Hg) 2019-01-01 16:24:00 Myles rial [place] Diastolic (mm Hg) 2019-01-01 16:24:00 Mem orial Tru Respitory Rate 2018-11-23 14:50:00 Memori al Tru Systolic (mm Hg) 2018-11-23 14:50:00 Myles rial [place] Diastolic (mm Hg) 2018-11-23 14:50:00 Mem orial Tru Systolic (mm Hg) 2018-11-23 14:35:00 Myles rial [place] Diastolic (mm Hg) 2018-11-23 14:35:00 Mem orial Tru Respitory Rate 2018-11-23 14:35:00 Memori al Tru Respitory Rate 2018-11-23 14:23:00 [facility] al [place] Systolic (mm Hg) 2018-11-23 14:23:00 Myles rial Tru Diastolic (mm Hg) 2018-11-23 14:23:00 Mem orial [place] Temperature Oral (F) 2018-11-13 20:06:00 97.9 F [facility] [place] Heart Rate 2018-11-13 20:06:00 [facility] [place] BMI Calculated 2018-11-13 20:04:00 [facility] [place] Weight 2018-11-13 20:04:00 [facility] [place] Height 2018-11-13 20:04:00 157.48 cm [facility] [place] BMI Calculated 2018-10-23 16:38:00 Memori al Tru Weight 2018-10-23 16:38:00 [facility] Tru Height 2018-10-23 16:38:00 157.48 cm [facility] [place] Heart Rate 2018-10-23 16:38:00 [facility] Tru Systolic (mm Hg) 2018-10-23 16:38:00 Myles rial [place] Diastolic (mm Hg) 2018-10-23 16:38:00 Mem orial Tru Height 2018-09-21 17:02:00 157.48 cm [facility] Tru BMI Calculated 2018-09-21 17:02:00 Memori al Tru Weight 2018-09-21 17:02:00 [facility] Tru Systolic (mm Hg) 2018-09-21 17:02:00 Myles rial [place] Diastolic (mm Hg) 2018-09-21 17:02:00 Mem orial [place] Heart Rate 2018-09-21 17:02:00 [facility] [place] Height 2018-08-15 16:06:00 157.48 cm [facility] [place] BMI Calculated 2018-08-15 16:06:00 [facility] al [place] Weight 2018-08-15 16:06:00 [facility] Tru Heart Rate 2018-08-15 16:06:00 [facility] [place] Temperature Oral (F) 2018-08-15 16:06:00 98.0 F [facility] [place] Systolic (mm Hg) 2018-08-15 16:06:00 Myles rial [place] Diastolic (mm Hg) 2018-08-15 16:06:00 Mem orial Tru BMI Calculated 2018-05-16 19:38:00 Mem[facility] al [place] Weight 2018-05-16 19:38:00 [facility] Tru Height 2018-05-16 19:38:00 157.48 cm [facility] Tru Systolic (mm Hg) 2018-05-16 19:38:00 Myles rial Tru Diastolic (mm Hg) 2018-05-16 19:38:00 Mem orial [place] Heart Rate 2018-05-16 19:38:00 [facility] Tru Weight 2018-01-31 16:04:00 [facility] [place] Height 2018-01-31 16:04:00 157.48 cm [facility] [place] BMI Calculated 2018-01-31 16:04:00 [facility] al [place] Systolic (mm Hg) 2018-01-31 16:04:00 Myles rial [place] Diastolic (mm Hg) 2018-01-31 16:04:00 Mem orial [place] Heart Rate 2018-01-31 16:04:00 [facility] [place] Weight 2017-12-27 15:24:00 [facility] [place] Temperature Oral (F) 2017-12-27 15:24:00 97.5 F [facility] [place] Heart Rate 2017-12-27 15:24:00 [facility] Tru Systolic (mm Hg) 2017-12-27 15:24:00 Myles rial [place] Diastolic (mm Hg) 2017-12-27 15:24:00 Mem orial [place] Height 2017-09-21 18:46:00 157.48 cm Memorial Tru BMI Calculated 2017-09-21 18:46:00 Mem[facility] al [place] Weight 2017-09-21 18:46:00 [facility] [place] Systolic (mm Hg) 2017-09-21 18:46:00 Myles rial [place] Diastolic (mm Hg) 2017-09-21 18:46:00 Mem orial Tru Temperature Oral (F) 2017-09-21 18:46:00 98.1 F [facility] Tru Heart Rate 2017-09-21 18:46:00 [facility] Tru BMI Calculated 2017-06-16 20:00:00 Memori al Tru Temperature Oral (F) 2017-06-16 20:00:00 98.4 F [facility] [place] Heart Rate 2017-06-16 20:00:00 [facility] Tru Weight 2017-06-16 20:00:00 [facility] [place] Height 2017-06-16 20:00:00 157.48 cm [facility] [place] Systolic (mm Hg) 2017-06-16 20:00:00 Myles rial Tru Diastolic (mm Hg) 2017-06-16 20:00:00 Mem orial [place] Height 2014-08-14 13:07:50 [facility] [place] Weight 2014-08-14 13:07:50 [facility] Tru Temperature Oral (F) 2014-08-14 13:07:50 98.0 F [facility] [place] Heart Rate 2014-08-14 13:07:50 [facility] [place] Systolic (mm Hg) 2014-08-14 13:07:50 Myles rial Tru Diastolic (mm Hg) 2014-08-14 13:07:50 Mem orial Tru Height 2014-04-30 14:44:12 [facility] Tru Weight 2014-04-30 14:44:12 [facility] Tur Temperature Oral (F) 2014-04-30 14:44:12 97.6 F [facility] Tru Heart Rate 2014-04-30 14:44:12 [facility] [place] Systolic (mm Hg) 2014-04-30 14:44:12 Myles rial Tru Diastolic (mm Hg) 2014-04-30 14:44:12 Mem orial [place] Height 2014-03-03 16:09:22 [facility] Tru Weight 2014-03-03 16:09:22 [facility] [place] Temperature Oral (F) 2014-03-03 16:09:22 97.6 F [facility] [place] Heart Rate 2014-03-03 16:09:22 [facility] [place] Systolic (mm Hg) 2014-03-03 16:09:22 Myles rial Tru Diastolic (mm Hg) 2014-03-03 16:09:22 Mem orial Tru Height 2014-01-29 13:30:33 [facility] [place] Weight 2014-01-29 13:30:33 [facility] Tru Temperature Oral (F) 2014-01-29 13:30:33 96.9 F [facility] Tru Heart Rate 2014-01-29 13:30:33 [facility] Tru Systolic (mm Hg) 2014-01-29 13:30:33 Myles rial Tru Diastolic (mm Hg) 2014-01-29 13:30:33 Mem orial Tru Weight 2013-10-30 13:25:41 [facility] [place] Temperature Oral (F) 2013-10-30 13:25:41 96.9 F [facility] Tru Heart Rate 2013-10-30 13:25:41 [facility] Tru Systolic (mm Hg) 2013-10-30 13:25:41 Myles rial [place] Diastolic (mm Hg) 2013-10-30 13:25:41 Mem orial Tru Weight 2013-09-11 16:18:41 [facility] [place] Temperature Oral (F) 2013-09-11 16:18:41 97.6 F [facility] [place] Systolic (mm Hg) 2013-09-11 16:18:41 Myles rial [place] Diastolic (mm Hg) 2013-09-11 16:18:41 Mem orial [place] Weight 2013-08-21 13:29:50 [facility] [place] Temperature Oral (F) 2013-08-21 13:29:50 97.4 F [facility] [place] Heart Rate 2013-08-21 13:29:50 [facility] Tru Systolic (mm Hg) 2013-08-21 13:29:50 Myles rial Tru Diastolic (mm Hg) 2013-08-21 13:29:50 Mem orial Tru Weight 2013-06-13 17:41:31 [facility] Tru Temperature Oral (F) 2013-06-13 17:41:31 96.7 F [facility] [place] Heart Rate 2013-06-13 17:41:31 [facility] [place] Systolic (mm Hg) 2013-06-13 17:41:31 Myles rial [place] Diastolic (mm Hg) 2013-06-13 17:41:31 Mem orial Tru Weight 2013-04-30 17:16:51 [facility] Tru Temperature Oral (F) 2013-04-30 17:16:51 96.8 F [facility] Tru Heart Rate 2013-04-30 17:16:51 [facility] [place] Systolic (mm Hg) 2013-04-30 17:16:51 Myles rial [place] Diastolic (mm Hg) 2013-04-30 17:16:51 Mem orial Tru Weight 2013-03-26 13:24:21 [facility] [place] Heart Rate 2013-03-26 13:24:21 [facility] [place] Temperature Oral (F) 2013-03-26 13:24:21 97.1 F [facility] Tru Systolic (mm Hg) 2013-03-26 13:24:21 Myles rial [place] Diastolic (mm Hg) 2013-03-26 13:24:21 Mem orial [place] Weight 2013-02-25 20:22:37 [facility] Tru Temperature Oral (F) 2013-02-25 20:22:37 97.1 F [facility] Tru Heart Rate 2013-02-25 20:22:37 [facility] [place] Systolic (mm Hg) 2013-02-25 20:22:37 Myles rial Tru Diastolic (mm Hg) 2013-02-25 20:22:37 Mem orial Tru Height 2013-02-25 20:22:37 [facility] [place] Weight 2013-01-04 20:27:31 [facility] Tru Temperature Oral (F) 2013-01-04 20:27:31 98.7 F [facility] Tru Heart Rate 2013-01-04 20:27:31 [facility] [place] Systolic (mm Hg) 2013-01-04 20:27:31 Myles rial Tru Diastolic (mm Hg) 2013-01-04 20:27:31 Mem orial Tru Procedures Procedure Date / Time Performed Performing Clinician Sourc e XR KUB KIDNEY URETER 2020-10-13 11:01:40 Garth Carreon [facility] Diabetic Retinopathy 2019-10-28 00:00:00 Jace Ott Study 7 field stereoscopic fundus photography<sup>1</sup> Collection of venous 2019-04-02 17:15:00 Jace Ott blood by venipuncture Diabetic Retinopathy 2018-12-27 00:00:00 Jace Ott Study 7 field stereoscopic fundus photography Pap smear and HPV 2018-04-28 06:00:00 [facility] [place] [facility] ermgilberto cotesting<sup>2</sup> Eye examination 2017-05-29 00:00:00 [facility] Mammogram 2016-12-26 05:00:00 [facility] Pelvic examination 2016-12-26 05:00:00 [facility] results 2012-09-26 13:44:59 [facility] 2009-08-25 15:18:42 [facility] mammogram 2003-04-18 16:19:12 [facility] Hysterectomy [facility] Procedure on pancreas [facility] [place] [facility] Removal of gallbladder [facility] Suspension of bladder [facility] [place] [facility] ermann Thyroidectomy [facility] Tonsillectomy [facility] Plan of Care Planned Activity Planned Date Details Comments Source Future Scheduled 2020-12-27 INFLUENZA VACCINE [place] [facility] 00:00:00 [code = INFLUENZA VACCINE] Future Scheduled 1998 BREAST CANCER [facility] Test 00:00:00 SCREENING [code = BREAST CANCER SCREENING] Future Scheduled 1998 COLONOSCOPY SCREENING [facility] Test 00:00:00 [code = COLONOSCOPY SCREENING] Future Scheduled 1998 SHINGLES VACCINES (#1) [facility] 00:00:00 [code = SHINGLES VACCINES (#1)] Future Scheduled 1966 Hepatitis C screening [facility] Test 00:00:00 (procedure) [code = 218066429] Future Scheduled 1958 DIABETES: RETINAL EYE [facility] [facility] Test 00:00:00 EXAM [code = DIABETES: RETINAL EYE EXAM] Future Scheduled 1958 DIABETIC FOOT EXAM [place] [facility] 00:00:00 [code = DIABETIC FOOT EXAM] Future Scheduled 1958 URINE MICROALBUMIN [place] [facility] Test 00:00:00 [code = URINE MICROALBUMIN] Encounters Start End Encounter Admission Attending Care Care Encounter Source Date/Time Date/Time Type Type Clinicians Facility Department ID 2020-10-13 2020-10-13 Outpatient AQUILES [facility] [id number] [place] 00:00:00 00:00:00 GARTH [address] 2020-10-13 2020-10-13 Outpatient Aquiles Han [facility] [id number] 00:00:00 00:00:00 Garth [id number] 2020-06-23 2020-06-23 Outpatient [facility] [id number] [address] [place] [address] 00:00:00 00:00:[address] 2020-06-02 2020-06-02 Outpatient [facility] [id number] [address] [place] [address] 00:00:00 00:00:[address] 2020-03-24 2020-03-24 Outpatient Gus [facility] [id number] 10:23:00 23:59:00 Fran Gongora 02 2020-02-28 2020-02-29 Outpatient [facility] [id number] 15:46:17 15:46:17 53 2020-01-03 2020-01-04 Outpatient [facility] [id number] 14:48:15 14:48:15 52 2019-12-10 2019-12-10 Outpatient Hal, [facility] [id number] 10:15:00 23:59:59 Jodi Dickey 23 2019-11-26 2019-11-26 Office Kishor Smith [facility] [id number] 09:50:21 10:05:21 Visit E AMBULATOR [id number] 2019-11-21 2019-11-22 Outpatient [facility] [id number] 10:18:23 23:59:59 26 2019-11-15 2019-11-16 Outpatient [facility] [id number] 13:59:50 13:59:50 50 2019-11-13 2019-11-14 Outpatient [facility] [id number] 08:33:12 23:59:59 25 2019-11-13 2019-11-14 Outpatient [facility] [id number] 08:31:56 23:59:59 24 2019-11-06 2019-11-06 Outpatient Hal [facility] [id number] 13:45:00 13:45:00 Jodi Dickey 22 2019-09-26 2019-09-27 Outpatient [facility] [id number] 08:36:33 23:59:59 23 2019-04-23 2019-04-24 Outpatient [facility] [id number] 09:23:50 09:23:50 46 2019-04-02 2019-04-02 Outpatient Hal [facility] [id number] 10:30:00 23:59:59 Jodi Dickey 21 2019-01-01 2019-01-01 Outpatient Olman [facility] [id number] 11:30:00 23:59:59 Domingo Pichardo 19 2018-12-26 2018-12-27 Outpatient [facility] [id number] 08:27:19 08:27:19 44 2018-11-23 2018-11-23 Outpatient Grace, MHPL MHPL [id number] 07:09:00 10:10:00 [facility] 42 2018-11-23 2018-11-23 Outpatient MHBL MHBL [id number] MHBL 07:09:00 07:09:00 2018-11-19 2018-11-19 Outpatient Grace, MHSE MHSE [id number] 09:12:00 23:59:00 [facility] 43 2018-11-19 2018-11-19 Outpatient MHSE MHSE [id number] 09:12:00 09:12:00 [facility] sondra [facility] 2018-10-23 2018-10-23 Outpatient Olman MHMG MHMG [id number] 11:45:00 23:59:59 Domingo Pichardo 20 2018-10-05 2018-10-06 Outpatient [facility] [id number] 13:35:48 13:35:48 41 2018-09-21 2018-09-21 Outpatient Olman [facility] [id number] 11:45:00 23:59:59 Domingo Pichardo 18 2018-08-30 2018-08-31 Outpatient [facility] [id number] 13:58:30 13:58:30 39 2018-08-27 2018-08-27 Outpatient Hal MHOIP MHOIP [id number] 10:05:00 23:59:00 Jodi Keli 2018-08-21 2018-08-22 Outpatient [facility] MHMG [id number] 14:49:16 14:49:16 38 2018-08-15 2018-08-15 Outpatient Hal, [facility] [id number] 10:45:00 23:59:59 Jodi Keli 17 2018-05-16 2018-05-16 Outpatient Hal, [facility]MG MHMG [id number] 13:30:00 23:59:59 Jodi Keli 16 2018-05-02 2018-05-02 Outpatient Hal, [facility]MG [id number] 13:30:00 13:30:00 Jodi Keli 15 2018-04-13 2018-04-14 Outpatient [facility] [id number] 09:18:00 23:59:59 22 2018-01-31 2018-01-31 Outpatient Olman, MHMG MHMG [id number] 11:15:00 23:59:59 Doug 14 2017-12-27 2017-12-27 Outpatient Olman, [facility] MH[facility] [id number] 10:30:00 23:59:59 Doug 13 2017-12-22 2017-12-22 Outpatient Granier, [facility] MH[facility] [id number] 13:30:00 13:30:00 Doug 12 2017-09-21 2017-09-21 Outpatient Granier, [facility] [id number] 13:30:00 23:59:59 Doug 11 2017-09-21 2017-09-21 Outpatient Granier, [facility] [id number] 14:00:00 14:00:00 Doug 10 2017-08-22 2017-08-23 Outpatient [facility] [id number] 08:18:00 23:59:59 21 2017-08-14 2017-08-15 Outpatient [facility] [id number] 08:03:00 23:59:59 20 2017-07-27 2017-07-28 Outpatient [facility] [id number] 10:18:00 23:59:59 19 2017-07-10 2017-07-11 Outpatient [facility] [id number] 08:07:00 23:59:59 18 2017-07-06 2017-07-07 Outpatient [facility] [id number] 08:45:00 23:59:59 17 2017-07-06 2017-07-07 Outpatient [facility] [id number] 08:40:00 23:59:59 16 2017-07-06 2017-07-07 Outpatient [facility] [id number] 08:34:00 23:59:59 15 2017-07-03 2017-07-04 Outpatient [facility] [id number] 12:03:00 23:59:59 14 2017-06-16 2017-06-16 Outpatient Olman, [facility] [id number] 14:00:00 23:59:59 Doug 09 2017-04-28 2017-04-29 Outpatient [facility] [id number] 08:49:00 23:59:59 13 Results Test Description Test Time Test Comments Results Result [facility] e Comments XR Kub Kidney 2020-09-26 [facility] Ureter Bladder 8 Radiology Results Met [facility] 11:22:50 10/13/2020 11:25 AM CDT EXAMINATION : XR KUB KIDNEY URETER BLADDERCLINICAL HISTORY: 70 years Female N20.0 Calculus of kidney, XRAY COMPARISON: None.IMPRESSION:1.No nspecific, nonobstructive bowel gas pattern. Moderate stool burden.2.Overlying bowel gas limits evaluation for calculus, within these confines, no discrete renal or ureteral calculus identified.3.Regiona l osseous structures appear intact. Degenerative change noted at the lumbar spine.4.Right upper quadrant surgical clips are noted, compatible with prior cholecystectomy.OPC- [id number] and approved by cardiac cath lab radiology technologist/fellow: Chandrakant Almanza M.D.I, Jerri Monsivais MD, personally reviewed the images and resident's/fellow's findings and agree with the final report. Chemistry 2014-07-27 7.6 [place] [address] Tru 14:00:00 Chemistry 2014-07-27 27 [place] [address] Tru 14:00:00 Chemistry 2014-07-27 3.850 [facility] 9 Tru 14:00:00 Chemistry 7.8 [facility] 3 Tru 15:30:00 Chemistry 218 [facility] 3 [place] 15:30:00 Chemistry 139 [facility] 3 Tru 15:30:00 Chemistry 63 [facility] 3 [place] 15:30:00 Chemistry 127 [facility] 3 Tru 15:30:00 Chemistry 140 MEQ/L [facility] 3 [place] 15:30:00 Chemistry 4.0 MEQ/L [facility] 3 [place] 15:30:00 Chemistry 0.5 [facility] 3 Tru 15:30:00 Chemistry 11 [facility] 3 [place] 15:30:00 Chemistry 2014-04-30 15:30:00 Test Item Value Reference Range Interpretation Comme nts BUN/CREAT (test code = BUN/CREAT) 22 1 6-25 [facility] IizlbyaLrewszezy8704-46-03 15:30:004.0[facility] 2014-04-30 15:30:0010.1[facility] AibdwpjVvpkpdfwv2302-60-27 15:30:0016[facility] JevyagyZigdjaody1188-40-65 15:30:0015[facility] MhmmtugKyorfwijh6629-52-87 15:30:0081[facility] XqkftipGtsrglihc0400-58-98 15:30:001.540[facility] [place] Jcjlhzlcgu0210-56-03 15:30:0013.8[facility] EkenukuEfaauwrnjy8418-29-35 15:30:00 41.9[facility] PezdxbzJqcrjxgcjl1946-44-87 15:30:96855 K/CMMMemorial Tru Ciefwcsrz3902-24-44 14:00:007.9[facility] GsdbvwdXdhgkusmi2725-04-73 14:00:001.550 [facility] GggxcerUwszrkwtd4858-97-64 14:00:007.9[facility] 2014-01-29 14:00:001.550[facility] BjqahlpCotsfaajm1938-76-48 14:10:009.0[facility] GcrjacbDlesfanmp2139-29-86 14:10:52301Qcfotpcb FbxyvpyVuvxloknj6687-90-55 14:10:77762Qcqbxzlr NspusqkVgvtttpke0947-45-03 14:10:009.0[facility] [place] Nkriqgwqo6650-60-58 14:10:38751Qscgoqmh DjmwmokMfvkddtrb5704-91-94 14:10:77469 [facility] WjelafxCwnqskwmt8456-65-06 14:10:0062[facility] 2013-10-30 14:10:14565Doobrjvl KlgldlqJviwgdsyx2789-56-76 14:10:002.420[facility] WumbpbuVpvdmnmqt1865-86-05 14:30:008.7[facility] LupbxaeJangqaoft3569-98-49 14:30:71030Kpwpkzto WjcfjgvBxuktskpa0044-83-76 14:30:68109Crkzoqws Tru Qkvaombih9052-09-96 14:30:008.7[facility] VlicitjNzxanfsts2265-16-94 14:30:46135 [facility] ZyxjwwpHsnveispf8467-64-67 14:30:18982Mqmetful HermannChemistry 2013-08-21 14:30:0055[facility] HxpbuaoZsnspqnzb2224-98-29 14:30:81578Aikrwmrp LhdibetKjcqqxtmf2537-42-71 14:30:001.290[facility] AyzzndlBefuwivxm1714-78-05 14:00:006.8[facility] GhtnwyvPekvebntt8512-99-30 14:00:14358Wlernfpl Tru Zlncizmwy5129-62-78 14:00:77905Yvuerpqu BgebkztOtuhjmcuc5458-41-94 14:00:006.8 [facility] ZnlhsafRdrultkwj6101-09-95 14:00:09506Ozccpase HermannChemistry 2013-03-26 14:00:24594Blggfvue HtycswoYxjicahnq1756-07-71 14:00:0071[facility] QumzdozGueenvhqr4942-66-61 14:00:14189Gmnzfjlr LvpzlanVwlxuajyy8383-10-48 14:00:31542 MEQ/LMemorial VbrqudiKumobjmvm2417-15-88 14:00:004.8 MEQ/LMemorial RrnonidEyvcadfkv1505-06-01 14:00:000.6[facility] XcvhdvmFjrkzouoj9129-32-45 14:00:0011[facility] XcxmyrwEoqkgkxsq4962-02-21 14:00:00 Test Item Value Reference Range Interpretation Comments BUN/CREAT (test code = BUN/CREAT) 18 11-20 [facility] JjexihiBhcvtvejj4705-59-61 14:00:004.0[facility] HermannChemistry 2013-03-26 14:00:0010.7[facility] KmqozgnBjwezalog9056-76-46 14:00:0017[facility] XizvzsgHuojkdqvn5160-32-77 14:00:0018[facility] FreftaaYlcxgtyvo5729-90-90 14:00:0089[facility] AcenpwlZsxeaosou0963-67-69 14:00:000.724[facility] Tru Tyigwhafxz7569-40-86 14:00:0012.0[facility] VpqrjurMyaazlzwql3749-27-34 14:00:00 38.6[facility] PnpbwdiCgridrrysj5745-23-81 14:00:64427 K/CMMMemorial Wilmerding Mubvthbik0878-55-79 21:50:0026[facility] HgexqbwBjsstdkyk2872-84-32 21:50:96925 MEQ/LMemorial LldwsmfGhuxvklle9970-96-49 21:50:004.0 MEQ/LMemorial Tru Znduybasr1985-45-47 21:50:0026[facility] RgixztmKpzrhgqav5277-84-14 21:50:50976 MEQ/LMemorial EgwhahgMlkakhudr6423-96-15 21:50:004.0 MEQ/LMemorial Tru Hjayqjzsu9815-25-33 21:50:000.6[facility] SzxwiwvMzuwepntv2182-02-04 21:50:009 [facility] QfnnmoyNvecsdkzp5323-40-20 21:50:00 Test Item Value Reference Range Interpretation Comments BUN/CREAT (test code = BUN/CREAT) 15 11-20 [facility] QqhdymxAscdgitda9588-36-21 21:50:004.0[facility] HermannChemistry 2013-01-04 21:50:009.7[facility] ZrbcyfuHbntzqedg6849-85-21 21:50:0014[facility] KhbuapyXsbxsrodt1596-47-00 21:50:0012[facility] TawdeyaWddafirwg7287-32-89 21:50:0073[facility] GbpcqwuFikyiizih7877-02-00 21:50:000.409[facility] Tru Lcocmljruk8116-68-10 21:50:0011.2[facility] LpwmcsnPypoitycaz5855-88-31 21:50:00 36.7[facility] YinuaakMmccxdxzxq3851-98-02 21:50:52853 K/CMMMemorial HermannOb/Biological Engineer 2012-09-26 13:44:59CompleteMemorial HermannOb/Yll4642-13-26 13:44:59Complete [facility] HermannOb/Rnj2711-04-53 13:44:59CompleteMemorial HermannOb/Biological Engineer 2012-09-26 13:44:59CompleteMemorial HermannOb/Geu9490-70-31 13:44:59Complete [facility] BejrzqtTamdbstig6405-54-13 13:44:59CompleteMemorial HermannPathology 2012-09-26 13:44:59CompleteMemorial Tru
[2020-11-28] MEDS ORDERED: dexAMETHasone 10 MG/ML VIAL ONE (10:26)
[2020-11-28] MEDS ORDERED: LEVALBUTEROL 1.25 MG/3 ML NEB ONE (10:26)
--- NOTE | 2020-11-28 10:34 | RAD REPORT ---
EXAM DESCRIPTION: RAD - Chest Single View - 11/28/2020 10:28 am CLINICAL HISTORY: cough, fever Chest pain. COMPARISON: Chest Single View dated 10/02/2017; CHEST PA AND LAT 2 VIEW dated 12/20/1999; CHEST PA AND LAT 2 VIEW dated 07/19/1994 FINDINGS: Portable technique limits examination quality. The lungs are grossly clear. The heart is upper limit normal in size. No displaced fractures. IMPRESSION: No acute intrathoracic process suspected.
--- NOTE | 2020-11-28 10:41 | ER ---
Nurse's Notes [facility] Name: Faviola Balder[facility] Age: 70 yrs Sex: Female : 1950 Arrival Date: 11/28/2020 Time: 09:37 Bed 16 Private MD: Diagnosis: Acute pharyngitis, unspecified;Acute upper respiratory infection, unspecified Presentation: 11/28 09:41 Chief complaint: Patient states: cough, congestion since Tuesday 11/21. Coronavirus kg screen: Client denies travel out of the [place] in the last 14 days. At this time, unable to obtain information related to travel outside the [place] At this time, the client does not indicate any symptoms associated with coronavirus-19. Ebola Screen: Patient negative for fever greater than or equal to 101.5 degrees Fahrenheit, and additional compatible Ebola Virus Disease symptoms Patient denies exposure to infectious person. Patient denies travel to an Ebola-affected area in the 21 days before illness onset. Initial Sepsis Screen: Does the patient meet any 2 criteria? No. Patient's initial sepsis screen is negative. Does the patient have a suspected source of infection? No. Patient's initial sepsis screen is negative. Risk Assessment: Do you want to hurt yourself or someone else? Patient reports no desire to harm self or others. Onset of symptoms was November 21, 2020. 09:41 Method Of Arrival: Ambulatory kg 10:13 Acuity: MORIAH 4 kg Historical: - Allergies: 09:44 Bactrim; kg 09:44 Macrobid; kg 09:44 Sulfa (Sulfonamide Antibiotics); kg 09:44 NITROFURAN DERIVATIVES; kg - PMHx: 09:44 Asthma; Diabetes - IDDM; Hypertension; Hypothyroidism; kg 09:45 tahlassemia; glucaoma; dextrocardia; kg - PSHx: 09:45 Cholecystectomy; Tonsillectomy; bladder suspension; hysterectomy; Thyroidectomy; done kg by radiation capsule; - Immunization history:: Adult Immunizations up to date, Client reports receiving the 2nd dose of the Covid vaccine, Date received: June 23, 2020. - Social history:: Smoking status: Patient denies any tobacco usage or history of. Screenin:43 Abuse screen: Denies threats or abuse. Denies injuries from another. Nutritional kg screening: No deficits noted. Tuberculosis screening: No symptoms or risk factors identified. Fall Risk None identified. No fall in past 12 months (0 pts). No secondary diagnosis (0 pts). No IV (0 pts). Ambulatory Aid- None/Bed Rest/Nurse Assist (0 pts). Gait- Normal/Bed Rest/Wheelchair (0 pts) Mental Status- Oriented to own ability (0 pts). Total Medley Fall Scale indicates No Risk (0-24 pts). Assessment: 10:43 General: Appears comfortable, Behavior is calm, cooperative, appropriate for age. Pain: tr6 Complains of pain in upper back when he coughs. Neuro: No deficits noted. Cardiovascular: No deficits noted. Capillary refill < 3 seconds. Respiratory: Airway is patent Breath sounds are clear. GI: No deficits noted. : No deficits noted. EENT: No deficits noted. Derm: No deficits noted. Musculoskeletal: No deficits noted. Vital Signs: 09:41 BP 153 / 61; Pulse 69; Resp 20; Temp 99.2(O); Pulse Ox 98% on R/A; Weight 94.2 kg (R); kg Height 5 ft. 2 in. (157.48 cm); Pain 7/10; 09:41 Body Mass Index 37.98 (94.20 kg, 157.48 cm) kg ED Course: 09:37 Patient arrived in ED. mr 09:37 Jax Florian PA is PHCP. jmm 09:37 Carmelo Gurrola MD is Attending Physician. jmm 09:43 Patient has correct armband on for positive identification. kg 09:49 Amira Jackman, LAURYN is Primary Nurse. tr6 10:12 Triage completed. sv 10:28 Chest Single View XRAY In Process Unspecified. EDMS 10:44 Patient placed in an exam room. tr6 10:44 No provider procedures requiring assistance completed. Patient did not have IV access tr6 during this emergency room visit. Administered Medications: 10:05 Drug: Decadron (dexamethasone) 10 mg Route: IM; Site: right deltoid; kg 10:09 Drug: Xopenex (levalbuterol) 1.25 mg Route: Inhalation; kg Outcome: 10:40 Discharge ordered by . jmm 10:44 Discharged to home ambulatory. tr6 10:44 Condition: stable 10:44 Discharge instructions given to patient, family, Instructed on discharge instructions, medication usage, safety practices, Demonstrated understanding of instructions, follow-up care, medications, Prescriptions given X 10:51 Prescriptions given X 2. tr6 10:53 Patient left the ED. tr6 Signatures: Dispatcher [employer] Laura Sewell RN RN sv Jax Florian PA PA jmm Rivera, Mary mr Amira Jackman RN RN tr6 Araceli Barnes RN RN kg Corrections: (The following items were deleted from the chart) 10:13 10:12 Acuity: MORIAH 3 sv sv
--- NOTE | 2020-11-28 10:41 | EDPHYS ---
Physician Documentation [facility] Name: Faviola Balderas Age: 70 yrs Sex: Female : 1950 Arrival Date: 11/28/2020 Time: 09:37 Bed 16 Private MD: ED Physician Carmelo Gurrola HPI: 11/28 10:05 This 70 yrs old Female presents to ER via Ambulatory with complaints of jmm Cough, Congestion. 10:05 The patient or guardian reports cough. Onset: The symptoms/episode began/occurred jmm gradually, 6 day(s) ago. Modifying factors: The symptoms are alleviated by nothing, the symptoms are aggravated by nothing. The patient has experienced similar episodes in the past. This is a 70 year old female with a history of asthma, dm, htn, hypothyroidism that presents to the ED with complaints of cough, sore throat, sob, for 1 week with fever beginning today. Patient has received covid immunization. Historical: - Allergies: 09:44 Bactrim; kg 09:44 Macrobid; kg 09:44 Sulfa (Sulfonamide Antibiotics); kg 09:44 NITROFURAN DERIVATIVES; kg - PMHx: 09:44 Asthma; Diabetes - IDDM; Hypertension; Hypothyroidism; kg 09:45 tahlassemia; glucaoma; dextrocardia; kg - PSHx: 09:45 Cholecystectomy; Tonsillectomy; bladder suspension; hysterectomy; Thyroidectomy; done kg by radiation capsule; - Immunization history:: Adult Immunizations up to date, Client reports receiving the 2nd dose of the Covid vaccine, Date received: June 23, 2020. - Social history:: Smoking status: Patient denies any tobacco usage or history of. ROS: 10:05 Abdomen/GI: Negative for abdominal pain, nausea, vomiting, diarrhea, and constipation, jmm Neuro: Negative for headache, weakness, numbness, tingling, and seizure. 10:05 Constitutional: Positive for fever. 10:05 ENT: Positive for sinus congestion, sore throat. 10:05 All other systems are negative. Exam: 10:05 Constitutional: This is a well developed, well nourished patient who is awake, alert, jmm and in no acute distress. Head/Face: atraumatic. Eyes: EOMI, no conjunctival erythema appreciated ENT: Moist Mucus Membranes Neck: Trachea midline, Supple Chest/axilla: Normal chest wall appearance and motion. Cardiovascular: Regular rate and rhythm. No edema appreciated Respiratory: Normal respirations, no respiratory distress appreciated Abdomen/GI: Non distended, soft Back: Normal ROM Skin: General appearance color normal MS/ Extremity: Moves all extremities, no obvious deformities appreciated, no edema noted to the lower extremities Neuro: Awake and alert, normal gait Psych: Behavior is normal, Mood is normal, Patient is cooperative and pleasant Vital Signs: 09:41 BP 153 / 61; Pulse 69; Resp 20; Temp 99.2(O); Pulse Ox 98% on R/A; Weight 94.2 kg (R); kg Height 5 ft. 2 in. (157.48 cm); Pain 12/05; 09:41 Body Mass Index 37.98 (94.20 kg, 157.48 cm) kg MDM: 10:01 Patient medically screened. [facility] 10:36 Data reviewed: vital signs, nurses notes. Counseling: I had a detailed discussion with [facility] the patient and/or guardian regarding: the historical points, exam findings, and any diagnostic results supporting the discharge/admit diagnosis, radiology results, the need for outpatient follow up, to return to the emergency department if symptoms worsen or persist or if there are any questions or concerns that arise at home. ED course: Patient is alert and non toxic in appearance in the ED. VS stable. Patient is advised to follow up with pcp and otherwise given strict return precautions. Patient understood and agrees with the plan of care. . 11/28 10:02 Order name: Chest Single View XRAY; Complete Time: 10:36 [facility] Administered Medications: 10:05 Drug: Decadron (dexamethasone) 10 mg Route: IM; Site: right deltoid; kg 10:09 Drug: Xopenex (levalbuterol) 1.25 mg Route: Inhalation; kg Disposition: 11:42 Co-signature as Attending Physician, Carmelo Gurrola MD I agree with the assessment and kdr plan of care. Disposition Summary: 11/28/20 10:40 Discharge Ordered Location: Home [facility] Condition: Stable [facility] Diagnosis - Acute pharyngitis, unspecified jmm - Acute upper respiratory infection, unspecified jmm Followup: [facility] - With: Private Physician - When: 2 - 3 days - Reason: Recheck today's complaints, Continuance of care, Re-evaluation by your physician Discharge Instructions: - Discharge Summary Sheet [facility] - Upper Respiratory Infection, Adult [facility] Forms: - Medication Reconciliation Form [facility] - Thank You Letter [facility] - Antibiotic Education [facility] - Prescription Opioid Use [facility] Prescriptions: - albuterol sulfate 90 mcg/actuation Inhalation HFA aerosol inhaler - inhale 2 puff by INHALATION route every 4 hours; 1 Inhaler; Refills: 0, Product jmm Selection Permitted - Zithromax Z-Pierre 250 mg Oral Tablet - take 1 tablet by ORAL route as directed for 5 days Day 1 - take two (2) tablets [facility] one time. Day 2, 3, 4 , 5 take one (1) tablet once daily.; 6 tablet; Refills: 0, Product Selection Permitted Signatures: Dispatcher [employer] Carmelo Garcia MD MD kdr Mickail, Joel, PA PA jmm Graham, Kristen, RN RN kg
[2020-11-28 10:58] VITALS: BP 153/61; TEMP 99.2; O2SAT 98
== END 2020-11-28 10:53 | disposition home or self-care (01) ==
LOC: ER 09:32
DX: J06.9 Acute upper respiratory infection, unspecified (principal); I10 Essential (primary) hypertension; Z88.1 Allergy status to other antibiotic agents; Z88.2 Allergy status to sulfonamides; Z88.8 Allergy status to other drugs, medicaments and biological substances
CPT/HCPCS: 71045; 96372; 99284; J1100

== ENCOUNTER 2021-06-05 12:28 | Emergency (ER) | payer OTHER ==
--- OUTSIDE RECORDS SUMMARY | 2021-06-05 12:34 | XMS REPORT | Continuity of Care Document ---
:[address] [facility] t Address [address] [place] [address] Care Team Providers Name Role Phone Goldfarb_R Attending Clinician Unavailable Aquiles Attending Clinician [phone] Cristiane Smith MD Attending Clinician Danial Leblanc Attending Clinician Unavailable Goldfarb_R Admitting Clinician Unavailable Physician, Primary or Family Admitting Clinician Unavailabl e Payers Payer Name Policy Type Policy Number Effective Date Expiration Date Tamela ESPINAL (MEDICARE [id number] 2016 REPLACEMENT PPO) 00:00:00 Problems Condition Condition Condition Status Onset Resolution Last Treating Co mments Source Name Details Category Date Date Treatment Clinician Date Q24.0 - Diagnosis Active 2019-052020-03-24 Me moria DEXTROCARD 0-27 10:33:00 l IA Q24.0 - 00:01: Tru DEXTROCARD 00 IA Active 0 MH OPID Tru DX: Diagnosis Active 2018-11-19 Mem oria K21.9=IRRI 6-14 09:24:00 l RO-ESOPHAG DX: 00:00: Levi n EAL REFLUX K21.9=RIRI 00 DISEA RO-ESOPHAG EAL REFLUX DISEA Active 11/09/2018 [facility] EGD / Diagnosis Active 2018-11-23 Mem oria COLON / 6-11 07:09:00 l MAC EGD / 00:00: [facility] COLON / 00 MAC [facility] Active 2018-08-27 Memoria ENCOUNTER 3- 10:14:00 l FOR Z13.820 00:01: Tru SCREENING - 00 FOR OS ENCOUNTER FOR SCREENING FOR OS Active 08/16/2018 THUAN [facility] Actinic Actinic Disease Active [facility] keratosis keratosis 5-08 Marissa ege 00:00: of 00 Medicin e Keratosis Keratosis Disease Active [place] [facility] seborrheic seborrheic 5-08 Co llege a a 00:00: of 00 Medicin e Atypical Atypical Disease Active [place] [facility] of 5-08 Colleg e forehead forehead 00:00: of 00 Medicin e Keratosis Keratosis Disease Active [place] [facility] seborrheic seborrheic 5-08 Co llege a a 00:00: of 00 Medicin e Neoplasm Neoplasm Disease Active [facility] r of of 7-14 College uncertain uncertain 00:00: of behavior behavior 00 Medici n of skin of skin e Gastritis Problem Active 2019-11-24 Me moria (disorder) 1- 23:28:12 l 00:00: [facility] Gastritis 00 (disorder) Active 06/14/2016 Problem 11/24/2019 Medical Group,[facility], SUNDAY [place] 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 Medical Group,[facility]dee Wilkins, [place], SUNDAY [place] GASTRITIS Condition Active 2014-08-14 Memoria 3-19 09:00:00 l 00:00: Tru GASTRITIS 00 Active 08/14/2014 Condition 5 Medical Group BURSITIS, Condition Active 2014-08-14 [facility] LEFT - 09:00:00 l SHOULDER 00:00: [facility] BURSITIS, 00 LEFT SHOULDER Active 08/14/2014 Condition 5 [facility] Group VACCINATIO Condition Active 2013-052014-08-14 Memoria N AGAINST 2-03 09:00:00 l INFLUENZA 00:00: Tru VACCINATIO 00 N AGAINST INFLUENZA Active 04/30/2014 Condition 5 [facility] Type II Problem Active 2020-12-24 Myles deni diabetes 01-29 22:27:58 l mellitus Type II 00:00: Marlene nn uncontroll diabetes 00 ed mellitus (finding) uncontroll ed (finding) Active 01/29/2014 Problem 12/24/2020 Data migrated from [employer] on 10/25/14. Medical Group, [place] Eddie Ott,[facility], SUNDAY [place] DIABETES Condition Active 2014-08-14 M emoria MELLITUS, 01-29 09:00:00 l TYPE II, DIABETES 00:00: Herm gilberto UNCONTROLL MELLITUS, 00 ED TYPE II, UNCONTROLL ED Active 4 Condition 08/14/2014 Medical Group Edema of Problem Active 2020-12-24 Mem oria lower 06-13 22:27:58 l extremity Edema of 00:00: Her de la garza (finding) lower 00 extremity (finding) Active 06/13/2013 Problem 12/24/2020 Data migrated from [employer] on 10/25/14. Medical Group, [facility] Eddie Ott,[facility], SUNDAY [facility] Simple Problem Active 2020-12-24 Memor ia obesity 1-16 22:27:58 l (disorder) Simple 00:00: Herm gilberto obesity 00 (disorder) Active 06/13/2013 Problem 12/24/2020 Data migrated from [employer] on 10/25/14. Medical Group, [place] Eddie Ott,[facility], [facility] [place] DEPENDENT Condition Active 2014-08-14 Memoria EDEMA, 1-16 09:00:00 l LEGS, 00:00: Tru BILATERAL DEPENDENT 00 EDEMA, LEGS, BILATERAL Active 06/13/2013 Condition 5 Medical Group EXOGENOUS Condition Active 2014-08-14 [facility] OBESITY - 09:00:00 l 00:00: [facility] EXOGENOUS 00 OBESITY Active 06/13/2013 Condition 5 Medical Group PREVENTIVE Condition Active 2012-052014-08-14 Memoria HEALTH - 09:00:00 l CARE 00:00: Tru PREVENTIVE 00 HEALTH CARE Active 03/26/2013 Condition 5 Medical Group Allergic Problem Active 2020-12-24 Mem oria rhinitis 02-25 22:27:58 l (disorder) Allergic 00:00: He rmgilberto rhinitis 00 (disorder) Active 02/25/2013 Problem 12/24/2020 Data migrated from [employer] on 10/25/14. Medical Group, [place] Eddie Ott,[facility], [facility]DAY [facility] ALLERGIC Condition Active 2014-08-14 M emoria RHINITIS 02-25 09:00:00 l ALLERGIC 00:00: Levi n RHINITIS 00 Active 02/25/2013 Condition 5 Medical Group HYPOTHYROI Condition Active 2014-08-14 [facility] DISM 01-04 09:00:00 l 00:00: Tru HYPOTHYROI 00 DISM Active 01/04/2013 Condition 5 Medical Group Hypothyroi Problem Active 2020-12-24 M emoria dism 01-04 22:27:58 l (disorder) 00:00: Levi n Hypothyroi 00 dism (disorder) Active 01/04/2013 Problem 12/24/2020 Data migrated from [employer] on 10/25/14. Medical Group, Haydee [facility], [facility] Oral pain Oral pain Disease Active [facility] 5- [place] 00:00: of 00 Medicin e Diabetes Diabetes Disease Active [facility] r mellitus mellitus 09-22 Colleg e (HCCode) (HCCode) 00:00: of 00 Medicin e Thrush, Thrush, Disease Active [facility] oral oral 4-27 College 00:00: of 00 Medicin e Hypertensi Problem Active 2020-12-24 M emoria ve 22:27:58 l disorder, Tru systemic Hypertensi arterial ve (disorder) disorder, systemic arterial (disorder) Active Problem 12/24/2020 Data migrated from [employer] on 10/25/14. Medical Group, CastroM Eddie Ott,[facility], SUNDAY [place] Trochanter Problem Active 2020-12-24 M emoria ic 22:27:58 l bursitis Tru (disorder) Trochanter ic bursitis (disorder) Active Problem 12/24/2020 [facility], SUNDAY [place] HYPERTENSI Condition Active 2014-08-14 Memoria ON 09:00:00 l Tru HYPERTENSI ON Active Condition 08/14/2014 Medical Group DYSLIPIDEM Condition Active 2014-08-14 Memoria IA 09:00:00 l [facility] DYSLIPIDEM IA Active Condition 08/14/2014 Medical Group ASTHMA, Condition Active 2014-08-14 Me moria UNSPECIFIE 09:00:00 l D, ASTHMA, [facility] UNSPECIFIE UNSPECIFIE D STATUS D, UNSPECIFIE D STATUS Active Condition 08/14/2014 Medical Group ACQUIRED Condition Active 2014-08-14 M emoria HEMOLYTIC 09:00:00 l ANEMIA ACQUIRED Levi n UNSPECIFIE HEMOLYTIC D ANEMIA UNSPECIFIE D Active Condition 08/14/2014 Medical Group DM Condition Inactiv 2014-08-14 Me moria e 09:00:00 l DM Tru Inactive Condition 5 Medical Group Disease of Problem Resolve 2020-12-24 Memoria thyroid d 22:27:58 l gland Disease [facility] (disorder) of thyroid gland (disorder) Resolved Problem 12/24/2020 Medical Group, [place],[facility], [place]DAY [place] Asthma Problem Active 2020-12-24 Memor ia (disorder) 22:27:58 l Asthma [facility] (disorder) Active Problem 12/24/2020 Data migrated from [employer] on 10/25/14. Medical Group, [place] Ott,[facility], SUNDAY [place] Dyslipidem Problem Active 2020-12-24 M emoria ia 22:27:58 l (disorder) Levi n Dyslipidem ia (disorder) Active Problem 12/24/2020 Data migrated from [facility] on 10/25/14. Medical Group[facility] SUN[facility] Ott,[facility], [place] Gastroesop Problem Active 2020-12-24 M emoria hageal 22:27:58 l reflux [facility] disease Gastroesop (disorder) hageal reflux disease (disorder) Active Problem 12/24/2020 Medical Group[facility] SUN[facility] Ott,[facility], [place] Gastrointe Problem Active 2019-11-24 M emoria stinal 23:28:12 l hemorrhage Levi n (disorder) Gastrointe stinal hemorrhage (disorder) Active Problem 11/24/2019 Medical Group,[facility] History of Past Illness Condition Condition Condition Status Onset Resolution Last Treating Co mments Source Name Details Category Date Date Treatment Clinician Date DIARRHEA, Condition Inactiv 2014-08-14 2014-08-14 [facility]oria CHRONIC e 02-25 09:00:00 09:00:00 l 00:00: [facility] DIARRHEA, 00 CHRONIC Inactive 02/25/2013 Condition 5 [facility] ABDOMINAL Condition Inactiv 2014-08-14 2014-08-14 Memoria PAIN e 01-04 09:00:00 09:00:00 l 00:00: [facility] ABDOMINAL 00 PAIN Inactive 01/04/2013 Condition 5 [facility] PALPITATIO Condition Inactiv 2014-08-14 2014-08-14 Memoria NS e 01-04 09:00:00 09:00:00 l 00:00: Tru PALPITATIO 00 NS Inactive 01/04/2013 Condition 5 Medical Group Allergies, Adverse Reactions, Alerts Allergy Allergy Status Severity Reaction(s) Onset Inactive Treating Comm ents Source Name Type Date Date Clinician Nitrofur Propensi Active Itching 2017-05 Swelling [place] [facility] an ty to 2-04 College Derivati adverse 00:00: of ves reaction 00 Medicin s to e drug Sulfa Propensi Active [facility] Drugs ty to 09-22 [place] adverse 00:00: of Reactors reaction 00 Medici n s to e drug sulfa sulfa Active Memoria drugs<quinones drugs<quinones l p>1</sup p>1</sup Levi n > > nitrofur nitrofur Active Memori a antoin antoin l Tru SULFA SULFA Active Memoria l [facility] Social History Social Habit Start Date Stop Date Quantity Comments Source Exposure to Not sure [facility] SARS-[facility]2 of Medicine (event) Alcohol intake 2021-01-20 2021-01-20 Current [facility] Col lege 00:00:00 00:00:00 non-drinker of of Medicin e alcohol (finding) Social History 2015-09-01 2015-09-01 [facility] 18:40:19 18:40:19 Tobacco use and 2015-09-01 2015-09-01 Never used [facility] Co llege exposure 00:00:00 00:00:00 of Medicine Sex Ass[birth year] [facility] 00:00:00 00:00:00 of Medicine Smoking Status Start Date Stop Date Source Never smoker [facility] o f Medicine Medications Ordered Filled Start Stop Current Ordering Indication Dosage Frequency Signature Comments Components Source Medication Medication Date Date Medication? Clinician (SIG) Name Name SitaGLIPtin Yes Take by Beob ylor Phosphate 8- mouth. [place] (MAYJACKY 13:43: of OR) 50 Medicin e valacyclovi 2019- Yes 1 gm = 1 Me moria r 1000 MG 7-14 tab, PO, l Oral Tablet 19:42: BID, # 30 H ermann [Valtrex] 00 tab, 1 Refill(s), Pharmacy: [id number], 157.48, cm, 12/10/19 10:52:00 CDT, Height, 98.182, kg, 12/10/19 10:52:00 CDT, Weight liothyronin Yes = 1 tab, Me moria e 25 mcg 7-14 PO, Daily, l oral tablet 19:41: # 90 tab, H ermann 00 3 Refill(s), Pharmacy: [id number], 157.48, cm, 12/10/19 10:52:00 CDT, Height, 98.182, kg, 12/10/19 10:52:00 CDT, Weight montelukast 2020-0 Yes = 1 tab, Me moria 10 mg oral 7-14 PO, Daily, l tablet 19:41: # 90 tab, Levi n 00 3 Refill(s), Pharmacy: [facility] #[id number], 157.48, cm, 12/10/19 10:52:00 CDT, Height, 98.182, kg, 12/10/19 10:52:00 CDT, Weight pantoprazol 2020-0 Yes = 1 tab, Me moria e 40 mg 7-14 PO, BID, # l oral 19:41: 180 tab, 3 Tru enteric 00 Refill(s), coated Pharmacy: tablet [facility] #[id number], 157.48, cm, 12/10/19 10:52:00 CDT, Height, 98.182, kg, 12/10/19 10:52:00 CDT, Weight sitagliptin 2020-0 Yes = 1 tab, Me moria 100 MG Oral 7-14 PO, Daily, l Tablet 19:41: # 90 tab, Levi n [Januvia] 00 3 Refill(s), Pharmacy: [id number], 157.48, cm, 12/10/19 10:52:00 CDT, Height, 98.182, kg, 12/10/19 10:52:00 CDT, Weight 3 ML 2019-0 Yes See Memoria insulin 7-14 Instructio l detemir 100 19:40: ns, INJECT Tru UNT/ML 00 50 UNITS Prefilled SUB-Q AM Syringe AND 30 [Levemir] UNITS IN THE EVENING ROTATE INJECTION SITES, # 15 mL, 6 Refill(s), MELA, Pharmacy: [facility] #[id number], 157.48, cm, 12/10/19 10:52:00 CDT, Height, 98.182, kg, 12/10/19 10:52:00 CDT, Weight Levothyroxi 2020-0 Yes 125 Memori a ne Sodium 7-14 microgram l 0.125 MG 19:40: = 1 tab, Marlene nn Oral Tablet 00 PO, Daily, [Synthroid] X 90 day, # 90 tab, 3 Refill(s), MELA, Pharmacy: [facility] #[id number], 157.48, cm, 12/10/19 10:52:00 CDT, Height, [...] 98.182, kg, 12/10/19 10:52:00 CDT, Weight Hydrochloro 2019-0 Yes 1 cap, PO, Memoria thiazide 25 [...] He rmann 00 90 tab, 3 Refill(s), MELA Pharmacy: [id number], 157.48, cm, 12/10/19 10:52:00 CDT, Height, 98.182, kg, 12/10/19 10:52:00 CDT, Weight carvedilol 2020-0 Yes = 1 tab, Mem oria 12.5 mg 7-14 PO, Q12H, l oral tablet 19:38: # 180 tab, Tru 00 3 Refill(s), Pharmacy: [id number], 157.48, cm, 12/10/19 10:52:00 CDT, Height, 98.182, kg, 12/10/19 10:52:00 CDT, Weight 24 HR 2019-0 Yes 4 mg = 1 [facility]oria Fesoterodin 7-14 tab, PO, l e Fumarate 19:38: Daily, # Her de la garza 4 MG 00 90 tab, 3 Extended Refill(s), Release Pharmacy: Tablet [facility] [Toviaz] [facility] #[id number], 157.48, cm, 12/10/19 10:52:00 CDT, Height, 98.182, kg, 12/10/19 10:52:00 CDT, Weight SitaGLIPtin 2019-0 Yes Take by Bebo ylor Phosphate 6-30 mouth. 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, Weight Levothyroxi 2019-0 Yes See Memori a ne Sodium 6-19 Instructio l 0.125 MG 18:59: ns, TAKE 1 Her de la garza Oral Tablet 00 TABLET BY [Synthroid] MOUTH EVERY DAY, # 90 tab, 0 Refill(s), MELA, Pharmacy: [id number], 157.48, cm, 04/02/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, Height, 94.545, kg, 04/02/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, Weight carvedilol Yes = 1 tab, Mem oria 12.5 mg 6-17 PO, Q12H, l oral tablet 18:04: # 180 tab, Tru 00 0 Refill(s), Pharmacy: [facility] STORE [id number], 157.48, cm, 04/02/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, Height, 94.545, kg, 04/02/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 3 ML 2018-05 Yes See Memoria insulin 1-05 Instructio l detemir 100 17:12: ns, 50 Herm gilberto UNT/ML 44 units SQ Prefilled in AM and Syringe 30 units [Levemir] in PM rotate injection sites, # 45 mL, 3 Refill(s), MELA, Pharmacy: [id number] glyBURIDE 5 Yes 10 mg = 2 M emoria mg oral 8-06 tab, PO, l tablet 16:45: BID, # 360 Marlene nn 18 tab, 3 Refill(s), Pharmacy: [id number] glyBURIDE 5 Yes See Memori a mg oral 7-31 Instructio l tablet 13:27: ns, # 270 Levi n 34 tab, Refill(s) 3, TAKE 2 TABLETS BY MOUTH EVERY MORNING AND 1 TABLET IN THE EVENING, Pharmacy: [id number] Sodium 2018- No 1,000 mL, Memori a Chloride 6-28 Rate: 25 l 0.9% IV 12:39: ml/hr, [facility] 1,000 mL 00 Infuse over: 40 hr, Route: IV, Dosing Weight 94.545 kg, Total Volume: 1,000, Start date: 11/23/18 7:39:00 CDT, Duration: 30 day, Stop date: 12/23/18 7:38:00 CDT, 2.07, m2, 0 Calcium 2018- No 1,000 mL, Memor ia Chloride 11-23 Rate: 25 l 0.0014 12:38: ml/hr, [facility] MEQ/ML / 00 Infuse Potassium over: 40 [...] 00 tab, 0 coated Refill(s), tablet Pharmacy: [facility] #[id number] carvedilol Yes TAKE 1 [facility] (COREG) 4-24 TABLET BY [place] 12.5 MG 00:00: MOUTH of tablet 00 TWICE A Medicin DAY e carvedilol Yes TAKE 1 [facility] (COREG) 4-24 TABLET BY [place] 12.5 MG 00:00: MOUTH of tablet 00 TWICE A Medicin DAY e 3 ML 2018- Yes See [facility] insulin 4-12 Instructio l detemir 100 19:19: ns, 50 Herm gilberto UNT/ML 00 units q Prefilled AM- 30 Syringe units q [Levemir] PM, # 60 mL, 5 Refill(s), Pharmacy: [facility] #[id number] liothyronin Yes TAKE 1 Bayl [facility] e (CYTOMEL) 4-03 TABLET BY Col lege 25 MCG 00:00: MOUTH of tablet 00 EVERY DAY Medicin e liothyronin 2018- Yes TAKE 1 [facility] e (CYTOMEL) 4-03 TABLET BY Col lege 25 MCG 00:00: MOUTH of tablet 00 EVERY DAY Medicin e 0.5 ML Yes 0.5 mL, [facility] Varicella 3-20 IM, ONCE, l zoster 16:58: # 1 mL, 1 Levi n virus 00 Refill(s) glycoprotei n E, recombinant 0.1 MG/ML Injection [Shingrix] 0.5 ML Yes 0.5 ml, [facility] Bordetella 3-20 IM, ONCE, l pertussis 16:58: # 1 mL, 0 Her de la garza filamentous 00 Refill(s) hemagglutin in vaccine, inactivated 0.01 MG/ML / Bordetella pertussis fimbriae 2/3 vaccine, inactivated 0.01 MG/ML / Bordetella pertussis pertactin vaccine, inactivated 0.006 MG/ML / Bordetella pertussis toxoid vacci sitagliptin Yes 100 mg = 1 Memoria 100 MG Oral 3-20 tab, PO, l Tablet 16:55: Daily, Kimberly Ott [Januvia] 39 90 tab, 3 Refill(s), Pharmacy: [id number] montelukast Yes 10 mg = 1 M emoria 10 mg oral 3-20 tab, PO, l tablet 16:54: Daily, Tru 48 TAKE 1 TABLET BY MOUTH EVERY DAY, # 90 tab, 3 Refill(s), Pharmacy: [facility] #[id number] liothyronin Yes 25 Memori a e 25 mcg 3-20 microgram l oral tablet 16:54: = 1 tab, Herminio torres 26 PO, Daily, # 90 tab, 3 Refill(s), Pharmacy: [facility] #[id number] Levothyroxi Yes 125 Memori a ne Sodium 3-20 microgram l 0.125 MG 16:53: = 1 tab, Marlene nn Oral Tablet 57 PO, Daily, [Synthroid] # 90 tab, 3 Refill(s), Pharmacy: [id number] Hydrochloro 2018- Yes 1 cap, PO, Memoria thiazide 25 3-20 Daily, # l MG / 16:53: 90 cap, 3 Tru Triamterene 19 Refill(s), 37.5 MG Pharmacy: Oral [facility][id number] Advair Yes 1 puff, Memoria Diskus 250 3-20 INHALATION l mcg-50 mcg 16:52: , BID, # 3 H ermann inhalation 28 ea, 3 powder Refill(s), Pharmacy: [facility] #[id number] carvedilol 2018- Yes 12.5 mg = Me moria 12.5 mg 3-20 1 tab, PO, l oral tablet 16:51: Q12H, # de la garza 03 180 tab, 3 Refill(s), Pharmacy: [facility] #[id number] Amlodipine 2018- Yes 1 cap, PO, M emoria 10 MG / 3-20 Daily, # l Benazepril 16:50: 90 cap, 3 He rmann hydrochlori 20 Refill(s), de 40 MG Pharmacy: Oral [id number] 3 ML Yes See [facility]oria insulin 3-20 Instructio l detemir 100 16:48: ns, 50 Herm gilberto UNT/ML 30 units q Prefilled AM- 30 Syringe units q [Levemir] PM, # 60 mL, 5 Refill(s), Pharmacy: [facility] #[id number] atorvastati Yes 10 mg = 1 M emoria n 10 mg 3-20 tab, PO, l oral tablet 16:48: Bedtime, # Tur 00 90 tab, 1 Refill(s), Pharmacy: [facility] #[id number] Aspirin 81 2018- Yes 81 mg = 1 Me moria MG Enteric 3-20 tab, PO, l Coated 16:12: Daily, # Tru Tablet 00 90 tab, 3 Refill(s) multivitami 2018-0 Yes Daily, 0 Me moria n 3-20 Refill(s) l 16:12: [facility] 00 Vitamin D3 2018- Yes 0 Memoria 3-20 Refill(s) l 16:12: [facility] 00 Fish Oil 2018-0 Yes PO, 0 Memoria 3-20 Refill(s) l 16:12: Tru 00 atorvastati Yes TAKE 1 [facility] (LIPITOR) 3-20 TABLET BY Col lege 10 MG 00:00: MOUTH of tablet 00 EVERYDAY Medicin AT BEDTIME e atorvastati Yes TAKE 1 [facility]l or n (LIPITOR) 3-20 TABLET BY Col lege 10 MG 00:00: MOUTH of tablet 00 EVERYDAY Medicin AT BEDTIME e Levothyroxi No See Memori a ne Sodium 2-18 Instructio l 0.125 MG 20:04: ns, TAKE 1 Her de la garza Oral Tablet 00 TABLET BY [Synthroid] MOUTH EVERY DAY, # 90 tab, 3 Refill(s), Pharmacy: [id number] Advair No See Memoria Diskus 250 2-18 Instructio l mcg-50 mcg 19:59: ns, TAKE 1 H ermann inhalation 00 PUFF TWICE powder A DAY, # 180 unit, 2 Refill(s), Pharmacy: [id number] 24 HR Yes See Memoria Fesoterodin 1-25 Instructio l e Fumarate 19:39: ns, TAKE 1 H ermann 4 MG 00 TABLET BY Extended MOUTH Release EVERY DAY, Tablet # 90 tab, [Toviaz] 3 Refill(s), Pharmacy: [facility] #[id number] 3 ML No 100 units, Memoria insulin 1-25 SUB-Q, l detemir 100 14:53: Bedtime, He rmann UNT/ML 00 50 u am 30 Prefilled u pm Syringe rotate [Levemir] injection sites, # 15 mL, 3 Refill(s), Pharmacy: [facility] #[id number] 3 ML No See Memoria insulin 1-23 Instructio l detemir 100 18:23: ns, 50 Herm gilberto UNT/ML 00 units q Prefilled AM- 30 Syringe units q [Levemir] PM, # 100 mL, 11 Refill(s), Pharmacy: [id number] montelukast No See Memori a 10 mg oral 1-17 Instructio l tablet 18:52: ns, TAKE 1 Marlene nn 00 TABLET EVERY DAY, # 90 tab, 11 Refill(s), Pharmacy: [id number] fluconazole 2017-05 No 150 mg = 1 Memoria 150 mg oral 2-31 tab, PO, l tablet 19:24: Q72H, Take Marlene nn 00 one tablet then repeat the dose in 72 hrs, # 2 tab, 0 Refill(s), Pharmacy: [id number] Cefuroxime 2017-05 No 250 mg = 1 M emoria 250 MG Oral 2-26 tab, PO, l Tablet 18:52: BID, X 7 [facility] 00 day, # 14 tab, 0 Refill(s), Pharmacy: [facility] #[id number] glyBURIDE 5 2017-05 Yes 10 mg = 2 M emoria mg oral 2-26 tab, PO, l tablet 12:35: BID-Meals, Marlene nn 21 # 360 tab, 0 Refill(s), Pharmacy: [facility] #[id number] BD UF SHORT 2017-05 Yes See Memori a PEN NEEDLE 1-30 Instructio l [id number] 19:33: ns, # 300 Marlene nn 47 syr, Refill(s) 2, USE TWICE DAILY, Pharmacy: [facility] #[id number] glyBURIDE 2017-05 No = 1 tab, Me moria mg oral 1-16 PO, BID, # l tablet 15:22: 180 tab, Tru 19 Refill(s) 3, 05/23/18 6:35:21 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, Pharmacy: [facility] #[id number] sitagliptin No See Memori a 100 MG Oral 9-18 Instructio l Tablet 21:25: ns, TAKE 1 Marlene nn [Januvia] 00 TABLET BY MOUTH DAILY, # 90 tab, 1 Refill(s), Pharmacy: [facility] #[id number] carvedilol No 12.5 mg = Me moria 12.5 mg 9-05 1 tab, PO, l oral tablet 18:29: Q12H, # Her de la garza 39 180 tab, 3 Refill(s), Pharmacy: [facility] #[id number] Hydrochloro Yes See Memori a thiazide 25 8-20 Instructio l MG / 17:22: ns, TAKE 1 Tru Triamterene 00 CAPSULE 37.5 MG EVERY DAY, Oral # 90 tab, Capsule 3 Refill(s), Pharmacy: [facility] #[id number] Levothyroxi Yes See Memori a ne Sodium 8-20 Instructio l 0.125 MG 17:22: ns, TAKE 1 Her de la garza Oral Tablet 00 TABLET BY [Synthroid] MOUTH EVERY DAY, # 90 tab, 3 Refill(s), Pharmacy: [facility] #[id number] carvedilol No 12.5 mg = Me moria 12.5 mg 8- 1 tab, PO, l oral tablet 16:54: Q12H, X 30 Tru 00 day, # 60 tab, 1 Refill(s), Pharmacy: [id number] carvedilol No 12.5 mg = Me moria 12.5 mg 8- 1 tab, PO, l oral tablet 15:47: Q12H, # 60 [facility] 00 tab, 0 Refill(s), Pharmacy: [facility] #[id number] metoprolol No 50 mg = 1 Me moria 50 mg oral 8- tab, PO, l tablet, 15:27: Daily, # Levi n extended 00 30 tab, 0 release Refill(s) Amlodipine Yes See Memoria 10 MG / 6 Instructio l Benazepril 15:28: ns, TAKE Her de la garza hydrochlori 00 ONE de 40 MG CAPSULE BY Oral MOUTH Capsule EVERY MORNING, # 90 tab, 3 Refill(s), Pharmacy: [id number] liothyronin Yes See Memori a e 25 mcg 6 Instructio l oral tablet 15:28: ns, TAKE 1 [place] 00 TABLET BY MOUTH DAILY, # 90 tab, 3 Refill(s), Pharmacy: [id number] HR Yes See Memoria Fesoterodin 3-27 Instructio l e Fumarate 13:43: ns, # 90 Her de [place] garza 4 MG 31 tab, Extended Refill(s) Release 3, TAKE 1 Tablet TABLET BY [Toviaz] MOUTH EVERY DAY, Pharmacy: [facility] #[id number] BD Yes See Memoria ULTRA-FINE 3-19 Instructio l PEN NDL 14:27: ns, # 300 Marlene nn [id number] 48 syr, Refill(s) 2, USE TWICE DAILY, Pharmacy: [facility] #[id number] ondansetron Yes See Memori a 4 mg oral 3- Instructio l tablet 16:25: ns, # 20 Tru 53 tab, Refill(s) 3, TAKE ONE TABLET BY MOUTH EVERY 6 HOURS NEEDED, Pharmacy: [facility] #[id number] montelukast Yes 10 mg = 1 M emoria 10 mg oral 2-12 tab, PO, l tablet 16:33: Daily, [facility] 00 TAKE 1 TABLET BY MOUTH EVERY DAY, # 90 tab, 3 Refill(s), Pharmacy: [facility] #[id number] 3 ML Yes See Memoria insulin 2-08 Instructio l detemir 100 21:42: ns, 50 Herm gilberto UNT/ML 00 units q Prefilled AM- 30 Syringe units q [Levemir] PM, # 100 mL, 11 Refill(s), Pharmacy: [facility] #[id number] 3 ML No 1 unit, [facility] insulin 2-08 SUB-Q, l detemir 100 15:32: Bedtime, # [facility] UNT/ML 00 3 mL, 0 Prefilled Refill(s), Syringe Pharmacy: [Levemir] [facility] #[id number] Advair Yes See [facility] Diskus 250 2-05 Instructio l mcg-50 mcg 19:32: ns, # 180 He rmann inhalation 57 unknown powder unit, Refill(s) 2, TAKE 1 PUFF TWICE A DAY, Pharmacy: [facility] #[id number] valacyclovi No 500 mg = 1 Memoria r 500 MG 1-19 tab, PO, l Oral Tablet 20:31: Q12H, X 7 H ermann [Valtrex] 00 day, # 14 tab, 1 Refill(s), Pharmacy: [facility] #[id number] Hydrochloro 2016-05 Yes See Memori a thiazide 25 2-01 Instructio l MG / 14:51: ns, # 90 [facility] Triamterene 01 unknown 37.5 MG unit, Oral Refill(s) Capsule 2, TAKE 1 CAPSULE EVERY DAY, Pharmacy: [facility] #[id number] SYNTHROID Yes [facility] 125 MCG 12-04 [place] tablet 00:00: of 00 Medicin e SYNTHROID Yes [facility] 125 MCG 12-04 [place] tablet 00:00: of 00 Medicin e TOVIAZ 4 MG Yes [place] [id number] 11-29 [place] 00:00: of 00 Medicin e TOVIAZ 4 MG Yes [place] [id number] 11-29 [place] 00:00: of 00 Medicin e amlodipine- Yes TAKE ONE Ba geraldineangela benazepril 6-19 CAPSULE BY Col lege (LOTREL) 00:00: MOUTH of 10-40 MG 00 EVERY Medicin per capsule MORNING e glyBURIDE Yes TAKE 1 [facility] (DIABETA) 5 6-19 TABLET BY Col lege MG tablet 00:00: MOUTH of 00 TWICE A Medicin DAY e amlodipine- Yes TAKE ONE Ba ylor benazepril 6-19 CAPSULE BY Col [facility]ge (LOTREL) 00:00: MOUTH of 10-40 MG 00 EVERY Medicin per capsule MORNING e glyBURIDE Yes TAKE 1 [facility] (DIABETA) 5 6-19 TABLET BY Col lege MG tablet 00:00: MOUTH of 00 TWICE A Medicin DAY e triamterene Yes TAKE 1 [facility] -hydrochlor 6-06 CAPSULE Colle ge othiazide 00:00: EVERY DAY of (DYAZIDE) 00 Medicin 37.5-25 MG e per capsule triamterene Yes TAKE 1 [facility] -hydrochlor 6-06 CAPSULE Colle ge othiazide 00:00: EVERY DAY of (DYAZIDE) 00 Medicin 37.5-25 MG e per capsule estradiol Yes TAKE 1 [facility] (ESTRACE) 2 5-22 TABLET BY Col lege MG tablet 00:00: MOUTH of 00 EVERY DAY Medicin e estradiol Yes TAKE 1 [facility] (ESTRACE) 2 5-22 TABLET BY Col lege MG tablet 00:00: MOUTH of 00 EVERY DAY Medicin e LEVEMIR Yes INJECT Lucien FLEXTOUCH 5-18 UNDER THE Colle ge 100 UNIT/ML 00:00: SKIN 50 of SOPN 00 UNITS IN Medicin MORNING, e 30 UNITS IN EVENING, 20 UNITS AT BEDTIME ROTATE SITES LEVEMIR Yes INJECT Lucien FLEXTOUCH 5-18 UNDER THE Colle ge 100 UNIT/ML 00:00: SKIN 50 of SOPN 00 UNITS IN Medicin MORNING, e 30 UNITS IN EVENING, 20 UNITS AT BEDTIME ROTATE SITES B-D Yes USE TWICE [facility] ULTRAFINE 5-09 DAILY College III SHORT 00:00: of PEN 31G X 8 00 Medicin MM MISC e B-D Yes USE TWICE Lucien ULTRAFINE 5-09 DAILY College III SHORT 00:00: of PEN 31G X 8 00 Medicin MM MISC e montelukast Yes TAKE 1 [facility] (SINGULAIR) 4-22 TABLET Colleg e 10 MG 00:00: EVERY DAY of tablet 00 Medicin e montelukast Yes TAKE 1 [facility] (SINGULAIR) 4-22 TABLET Colleg e 10 MG 00:00: EVERY DAY of tablet 00 Medicin e JANUVIA 100 Yes TAKE 1 Myles deni MG TABS 3-19 TABLET BY l 09:00: MOUTH Tru 00 DAILY ESTRADIOL 2 Yes Memori a MG TABS 3-19 l 09:00: [facility] ADVAIR Yes TAKE 1 [facility] DISKUS 3-19 DOSE TWICE l 250-50 09:00: A DAY Tru MCG/DOSE 00 AEPB SINGULAIR Yes TAKE 1 Mem[facility] a 10 MG TABS 3-19 TABLET BY l 09:00: MOUTH [facility] DAILY ZOFRAN 4 MG Yes one q 6 h M emoria TABS 3-19 prn l 00:00: [facility] OMEPRAZOLE- 2013-05 Yes one daily M emoria SODIUM 2-04 before l BICARBONATE 00:00: supper Herm gilberto 40-1100 MG 00 CAPS SINGULAIR 2013-05 Yes TAKE 1 Memori a 10 MG TABS 2-03 TABLET BY l 09:30: MOUTH [facility] DAILY TESSALON 2013-05 No 2 tabs q 6 Mem oria PERLES 100 0-06 h prn l MG CAPS 00:00: [facility] 00 ADVAIR Yes TAKE 1 [facility] DISKUS 9-03 DOSE TWICE l 250-50 08:30: A DAY [facility] MCG/DOSE 33 AEPB MACROBID No 1 tablet Memor ia 100 MG CAPS 6-10 twice day l 00:00: [facility] 00 JANUVIA 100 Yes TAKE 1 Myles deni MG TABS 6-04 TABLET BY l 09:10: MOUTH [facility] 00 DAILY ESTRADIOL 2 Yes Memori a MG TABS 6-04 l 08:25: Tru 41 AMLODIPINE Yes one q am Mem oria BESY-BENAZE 4-16 l PRIL HCL 00:00: Tru 10-40 MG 00 CAPS AMLODIPINE Yes one q am Mem oria BESY-BENAZE 4-16 l PRIL HCL 00:00: [facility] 10-40 MG 00 CAPS TRAMADOL No one q 6h Memor ia HCL 50 MG 4-07 prn l TABS 00:00: [facility] 00 NIFEDIPINE No one daily Me moria ER OSMOTIC 4-07 l 90 MG 00:00: Tru [id number] TRAMADOL No one q 6h Memor [...] PEN NEEDLES Yes Use as Myles deni 16" 31G X 4-01 directed l 8 MM MISC 00:00: once day in the morning LEVEMIR Yes Injects 50 Myles deni FLEXPEN 100 3-28 units l UNIT/ML 00:00: every [facility] SOLN morning before breakfast. LEVEMIR Yes Injects 50 Myles deni FLEXPEN 100 3-28 units l UNIT/ML 00:00: every Tru SOLN morning before breakfast & 30 Units before supper LEVEMIR Yes Injects 50 Myles deni FLEXPEN 100 3-28 units l UNIT/ML 00:00: every [facility] SOLN morning before breakfast & 30 Units before supper DETROL LA 4 No TAKE 1 Myles deni MG 3-26 TABLET BY l [id number] 00:00: MOUTH DAILY DIOVAN 320 No one daily Me moria MG TABS 3-26 l 00:00: DYAZIDE Yes one tablet Myles deni 37.5-25 MG 3-26 daily l CAPS 00:00: DETROL LA 4 No TAKE 1 Myles deni MG 3-26 TABLET BY l [id number] 00:00: MOUTH [facility] DAILY DIOVAN 320 No one daily Me moria MG TABS 3-26 l 00:00: DETROL LA 4 No TAKE 1 Myles deni MG 3-26 TABLET BY l [id number] 00:00: MOUTH Tru 00 DAILY DIOVAN 320 No one daily Me moria MG TABS 3-26 l 00:00: TOVIAZ 4 MG Yes one daily M emoria [id number] 2-20 l 00:00: DIOVAN HCT No one daily Me moria 160-12.5 MG 1-31 in pm. l TABS 00:00: DIOVAN HCT No one tablet M emoria 80-12.5 MG 1-31 twice day l TABS 00:00: DIOVAN HCT No one tablet M emoria 80-12.5 MG 1-31 twice day l TABS 00:00: DIOVAN HCT No one daily Me moria 160-12.5 MG 1-31 in pm. l TABS 00:00: LOTREL 5-40 2012-05 No TAKE 1 Myles deni MG CAPS 2-03 CAPSULE BY l 00:00: MOUTH DAILY GLYBURIDE-M 2012-05 No TAKE 1 Myles deni ETFORMIN 0-30 TABLET BY l 5-500 MG 00:00: MOUTH [facility] TABS 00 THREE TIMES A DAY DIABETA 5 2012-05 Yes one bid Memor ia MG TABS 0-30 l 00:00: AMLODIPINE 2012-05 No one daily Me moria BESY-BENAZE 0-30 l PRIL HCL 00:00: [facility] 10-40 MG 00 CAPS AMLODIPINE 2012-05 No one daily Me moria BESY-BENAZE 0-30 l PRIL HCL 00:00: Tru 10-40 MG 00 CAPS FLONASE 50 Yes bid each Mem oria MCG/ACT 9-30 nostril. l SUSP 00:00: BENZONATATE No one tab q M emoria 100 MG CAPS 9-30 6h prn l 00:00: cough. DIABETA 5 No one bid Memor ia [...] M emoria TABS 8-09 prn l 00:00: LATANOPROST Yes 1 drop at M emoria 0.005 % 8-09 night l SOLN 00:00: ZEGERID No 1 tablet Memori a 40-1100 MG 8-09 daily l CAPS 00:00: TRIBENZOR No TAKE 1 Memori a 20-5-12.5 4-29 TABLET BY l MG TABS 00:00: MOUTH DAILY PROCARDIA No TAKE 1 Memori a XL 60 MG 4-29 TABLET BY l [id number] 00:00: MOUTH DAILY LIOTHYRONIN Yes 1 tablet [...] 25 4-17 daily l MCG TABS 00:00: nystatin Yes [id number] Take 5 mL [facility] (MYCOSTATIN 4-27 by mouth 2 [facility] ) [id number] 00:00: times of UNIT/ML 00 daily. Medicin suspension e nystatin Yes [id number] Take 5 mL [facility] (MYCOSTATIN 4-27 by mouth 2 [facility] ) [id number] 00:00: times of UNIT/ML 00 daily. Medicin suspension e Immunizations Ordered Immunization Filled Immunization Date Status Commen Source Name Name influenza virus 2020-02-27 Completed [facility] vaccine, inactivated 00:00:00 [facility] gilberto influenza virus 2019-02-26 Completed [facility] vaccine, inactivated 00:00:00 [facility] gilberto zoster vaccine, 2018-12-27 Completed [facility] inactivated 00:00:00 [facility] diphtheria/pertussis 2018-08-27 Completed Myles rial , acel/tetanus adult 00:00:00 [facility] gilberto zoster vaccine, 2018-08-27 Completed [facility] inactivated 00:00:00 [facility] pneumococcal 2018-08-15 Completed [facility] 23-valent vaccine 18:34:00 [facility] influenza virus 2018-04-29 Completed [facility] vaccine, inactivated 00:00:00 [facility] gilberto influenza virus 2016-06-20 Completed [facility] vaccine, inactivated 21:07:00 Herm gilberto pneumococcal 2015-05-01 Completed [facility] 13-valent vaccine 16:30:00 [facility] influenza virus 2015-05-01 Completed [facility] vaccine, inactivated 16:29:00 Herm gilberto influenza 2014-04-30 Completed [facility] immunization (Flu 14:44:12 [facility] Vax) has been administered Hx influenza 2014-04-30 Completed [facility] vaccine-unspecified< 06:00:00 Herm gilberto sup>3</sup> Hx influenza 2014-04-30 Completed [facility] vaccine-unspecified< 06:00:00 Herm gilberto sup>2</sup> influenza virus 2013-03-26 Completed [facility] vaccine, 05:00:00 Tru inactivated<sup>1</s up> influenza virus 2013-03-26 Completed [facility] vaccine, 05:00:00 Tru inactivated<sup>2</s up> pneumococcal 2012-04-26 Completed [facility] 23-valent 16:21:12 [facility] vaccine<sup>2</sup> pneumococcal 2012-04-26 Completed [facility] 23-valent 16:21:12 Tru vaccine<sup>1</sup> pneumococcal 2012-04-26 Completed [facility] 23-valent 16:21:12 [facility] vaccine<sup>3</sup> pneumococcal 2012-04-26 Completed [facility] immunization 16:21:12 [facility] administered influenza 2012-04-26 Completed [facility] immunization (Flu 16:20:42 Tru Vax) has been administered influenza 2011-02-21 Completed [facility] immunization (Flu 15:20:12 Tru Vax) has been administered influenza 2010-04-15 Completed [facility] immunization (Flu 16:20:12 [facility] Vax) has been administered pneumococcal 2009-04-07 Completed [facility] immunization 16:20:42 [facility] administered Vital Signs Vital Name Observation Time Observation Value Comments Source Systolic blood 2021-01-20 18:44:00 144 mm[Hg] [facility] pressure Medicine Diastolic blood 2021-01-20 18:44:00 52 mm[Hg] [facility] pressure Medicine Heart rate 2021-01-20 18:44:00 63 /min [facility] Body height 2021-01-20 18:44:00 157.5 cm [facility] Body weight 2021-01-20 18:44:00 95.255 kg [facility] BMI 2021-01-20 18:44:00 38.41 kg/m2 [facility] Systolic blood 2019-11-26 15:09:00 145 mm[Hg] [facility] Medicine Diastolic blood 2019-11-26 15:09:00 59 mm[Hg] [facility] Medicine Heart rate 2019-11-26 15:09:00 66 /min [facility] Body height 2019-11-26 15:09:00 157.5 cm [facility] Body weight 2019-11-26 15:09:00 95.709 kg [facility] BMI 2019-11-26 15:09:00 38.59 kg/m2 [facility] Systolic blood 2019-11-26 15:09:00 145 mm[Hg] [facility] Medicine Diastolic blood 2019-11-26 15:09:00 59 mm[Hg] [facility] Medicine Heart rate 2019-11-26 15:09:00 66 /min [facility] Body height 2019-11-26 15:09:00 157.5 cm [facility] Body weight 2019-11-26 15:09:00 95.709 kg [facility] BMI 2019-11-26 15:09:00 38.59 kg/m2 [facility] Systolic (mm Hg) 2020-12-17 15:21:00 Myles rial Tru Diastolic (mm Hg) 2020-12-17 15:21:00 Mem orial Tru Heart Rate 2020-12-17 15:21:00 [facility] Tru Respitory Rate 2020-12-17 15:21:00 Memori al Tru Height 2020-12-17 15:21:00 154.94 cm [facility] Weight 2020-12-17 15:21:00 [facility] BMI Calculated 2020-12-17 15:21:00 Memori al Tru Systolic (mm Hg) 2019-12-10 15:52:00 Myles rial [facility] Diastolic (mm Hg) 2019-12-10 15:52:00 Mem orial [facility] Heart Rate 2019-12-10 15:52:00 [facility] Tru Height 2019-12-10 15:52:00 157.48 cm [facility] Tru Weight 2019-12-10 15:52:00 [facility] BMI Calculated 2019-12-10 15:52:00 Memori al Tru Systolic (mm Hg) 2019-04-02 16:55:00 Myles rial Tru Diastolic (mm Hg) 2019-04-02 16:55:00 Mem orial Tur Heart Rate 2019-04-02 16:55:00 [facility] Height 2019-04-02 16:55:00 157.48 cm [facility] Weight 2019-04-02 16:55:00 [facility] Tru BMI Calculated 2019-04-02 16:55:00 Memori al [facility] BMI Calculated 2019-01-01 16:24:00 Memori al [facility] Weight 2019-01-01 16:24:00 [facility] Height 2019-01-01 16:24:00 157.48 cm [facility] Heart Rate 2019-01-01 16:24:00 [facility] Tru Systolic (mm Hg) 2019-01-01 16:24:00 Myles rial [facility] Diastolic (mm Hg) 2019-01-01 16:24:00 Mem orial Tru Respitory Rate 2018-11-23 14:50:00 Memori al [facility] Systolic (mm Hg) 2018-11-23 14:50:00 Myles rial [facility] Diastolic (mm Hg) 2018-11-23 14:50:00 Mem orial Tru Systolic (mm Hg) 2018-11-23 14:35:00 Myles rial Tru Diastolic (mm Hg) 2018-11-23 14:35:00 Mem orial Tru Respitory Rate 2018-11-23 14:35:00 Memori al [facility] Respitory Rate 2018-11-23 14:23:00 Memori al [facility] Systolic (mm Hg) 2018-11-23 14:23:00 Myles rial Tru Diastolic (mm Hg) 2018-11-23 14:23:00 Mem orial [facility] Temperature Oral (F) 2018-11-13 20:06:00 97.9 F [facility] Tru Heart Rate 2018-11-13 20:06:00 [facility] Tru BMI Calculated 2018-11-13 20:04:00 Memori al Tru Weight 2018-11-13 20:04:00 [facility] Tru Height 2018-11-13 20:04:00 157.48 cm [facility] Tru BMI Calculated 2018-10-23 16:38:00 Memori al [facility] Weight 2018-10-23 16:38:00 [facility] Height 2018-10-23 16:38:00 157.48 cm [facility] Heart Rate 2018-10-23 16:38:00 [facility] Tru Systolic (mm Hg) 2018-10-23 16:38:00 Myles rial Tru Diastolic (mm Hg) 2018-10-23 16:38:00 Mem orial [facility] Height 2018-09-21 17:02:00 157.48 cm [facility] BMI Calculated 2018-09-21 17:02:00 Memori al Tru Weight 2018-09-21 17:02:00 [facility] Systolic (mm Hg) 2018-09-21 17:02:00 Myles rial [facility] Diastolic (mm Hg) 2018-09-21 17:02:00 Mem orial Tru Heart Rate 2018-09-21 17:02:00 [facility] Tru Height 2018-08-15 16:06:00 157.48 cm [facility] BMI Calculated 2018-08-15 16:06:00 Memori al [facility] Weight 2018-08-15 16:06:00 [facility] Tru Heart Rate 2018-08-15 16:06:00 [facility] Temperature Oral (F) 2018-08-15 16:06:00 98.0 F [facility] Systolic (mm Hg) 2018-08-15 16:06:00 Myles rial Tru Diastolic (mm Hg) 2018-08-15 16:06:00 Mem orial [facility] BMI Calculated 2018-05-16 19:38:00 Memori al Tru Weight 2018-05-16 19:38:00 [facility] Tru Height 2018-05-16 19:38:00 157.48 cm [facility] Systolic (mm Hg) 2018-05-16 19:38:00 Myles rial [facility] Diastolic (mm Hg) 2018-05-16 19:38:00 Mem orial [facility] Heart Rate 2018-05-16 19:38:00 [facility] Tru Weight 2018-01-31 16:04:00 [facility] Height 2018-01-31 16:04:00 157.48 cm [facility] BMI Calculated 2018-01-31 16:04:00 Memori al [facility] Systolic (mm Hg) 2018-01-31 16:04:00 Myles rial [facility] Diastolic (mm Hg) 2018-01-31 16:04:00 Mem orial [facility] Heart Rate 2018-01-31 16:04:00 [facility] Weight 2017-12-27 15:24:00 [facility] Tru Temperature Oral (F) 2017-12-27 15:24:00 97.5 F [facility] Heart Rate 2017-12-27 15:24:00 [facility] Systolic (mm Hg) 2017-12-27 15:24:00 Myles rial Tru Diastolic (mm Hg) 2017-12-27 15:24:00 Mem orial [facility] Height 2017-09-21 18:46:00 157.48 cm [facility] BMI Calculated 2017-09-21 18:46:00 Memori al Tru Weight 2017-09-21 18:46:00 [facility] Tru Systolic (mm Hg) 2017-09-21 18:46:00 Myles rial [facility] Diastolic (mm Hg) 2017-09-21 18:46:00 Mem orial [facility] Temperature Oral (F) 2017-09-21 18:46:00 98.1 F [facility] Tru Heart Rate 2017-09-21 18:46:00 [facility] BMI Calculated 2017-06-16 20:00:00 Memori al [facility] Temperature Oral (F) 2017-06-16 20:00:00 98.4 F [facility] Tru Heart Rate 2017-06-16 20:00:00 [facility] Weight 2017-06-16 20:00:00 [facility] Tru Height 2017-06-16 20:00:00 157.48 cm [facility] Systolic (mm Hg) 2017-06-16 20:00:00 Myles rial [facility] Diastolic (mm Hg) 2017-06-16 20:00:00 Mem orial Tru Height 2014-08-14 13:07:50 [facility] Tru Weight 2014-08-14 13:07:50 [facility] Tru Temperature Oral (F) 2014-08-14 13:07:50 98.0 F [facility] Tru Heart Rate 2014-08-14 13:07:50 [facility] Systolic (mm Hg) 2014-08-14 13:07:50 Myles rial Tru Diastolic (mm Hg) 2014-08-14 13:07:50 Mem orial [facility] Height 2014-04-30 14:44:12 [facility] Weight 2014-04-30 14:44:12 [facility] Temperature Oral (F) 2014-04-30 14:44:12 97.6 F [facility] Heart Rate 2014-04-30 14:44:12 [facility] Tru Systolic (mm Hg) 2014-04-30 14:44:12 Myles rial Tru Diastolic (mm Hg) 2014-04-30 14:44:12 Mem orial [facility] Height 2014-03-03 16:09:22 [facility] Weight 2014-03-03 16:09:22 [facility] Tru Temperature Oral (F) 2014-03-03 16:09:22 97.6 F [facility] Heart Rate 2014-03-03 16:09:22 [facility] Tru Systolic (mm Hg) 2014-03-03 16:09:22 Myles rial Tru Diastolic (mm Hg) 2014-03-03 16:09:22 Mem orial Tru Height 2014-01-29 13:30:33 [facility] Weight 2014-01-29 13:30:33 [facility] Temperature Oral (F) 2014-01-29 13:30:33 96.9 F [facility] Tru Heart Rate 2014-01-29 13:30:33 [facility] Systolic (mm Hg) 2014-01-29 13:30:33 Myles rial Tru Diastolic (mm Hg) 2014-01-29 13:30:33 Mem orial [facility] Weight 2013-10-30 13:25:41 [facility] Tru Temperature Oral (F) 2013-10-30 13:25:41 96.9 F [facility] Tru Heart Rate 2013-10-30 13:25:41 [facility] Systolic (mm Hg) 2013-10-30 13:25:41 Myles rial Tru Diastolic (mm Hg) 2013-10-30 13:25:41 Mem orial [facility] Weight 2013-09-11 16:18:41 [facility] Tru Temperature Oral (F) 2013-09-11 16:18:41 97.6 F [facility] Tru Systolic (mm Hg) 2013-09-11 16:18:41 Myles rial [facility] Diastolic (mm Hg) 2013-09-11 16:18:41 Mem orial Tru Weight 2013-08-21 13:29:50 [facility] Temperature Oral (F) 2013-08-21 13:29:50 97.4 F [facility] Tru Heart Rate 2013-08-21 13:29:50 [facility] Systolic (mm Hg) 2013-08-21 13:29:50 Myles rial Tru Diastolic (mm Hg) 2013-08-21 13:29:50 Mem orial Tru Weight 2013-06-13 17:41:31 [facility] Temperature Oral (F) 2013-06-13 17:41:31 96.7 F [facility] Tru Heart Rate 2013-06-13 17:41:31 [facility] Systolic (mm Hg) 2013-06-13 17:41:31 Myles rial Tru Diastolic (mm Hg) 2013-06-13 17:41:31 Mem orial Tru Weight 2013-04-30 17:16:51 [facility] Tru Temperature Oral (F) 2013-04-30 17:16:51 96.8 F [facility] Tru Heart Rate 2013-04-30 17:16:51 [facility] Systolic (mm Hg) 2013-04-30 17:16:51 Myles rial Tru Diastolic (mm Hg) 2013-04-30 17:16:51 Mem orial [facility] Weight 2013-03-26 13:24:21 [facility] Tru Heart Rate 2013-03-26 13:24:21 [facility] Temperature Oral (F) 2013-03-26 13:24:21 97.1 F [facility] Systolic (mm Hg) 2013-03-26 13:24:21 Myles rial [facility] Diastolic (mm Hg) 2013-03-26 13:24:21 Mem orial [facility] Weight 2013-02-25 20:22:37 [facility] Tru Temperature Oral (F) 2013-02-25 20:22:37 97.1 F [facility] Heart Rate 2013-02-25 20:22:37 [facility] Tru Systolic (mm Hg) 2013-02-25 20:22:37 Myles rial [facility] Diastolic (mm Hg) 2013-02-25 20:22:37 Mem orial Tru Height 2013-02-25 20:22:37 [facility] Weight 2013-01-04 20:27:31 [facility] Temperature Oral (F) 2013-01-04 20:27:31 [facility] 2013-01-04 20:27:31 [facility] Systolic (mm Hg) 2013-01-04 20:27:31 Myles cabrera [facility] Diastolic (mm Hg) 2013-01-04 20:27:31 [facility] orial Tru Procedures Procedure Date / Time Performed Performing Clinician [facility] Diabetic Retinopathy Study 2019-10-28 00:00:00 [facility] Tru 7 field stereoscopic fundus photography<sup>1</sup> Collection of venous blood 2019-04-02 17:15:00 M emorileti [facility] by venipuncture Mammogram 2019-02-26 05:00:00 [facility] Her de la garza Diabetic Retinopathy Study 2018-12-27 00:00:00 [facility] Tru 7 field stereoscopic fundus photography Colonoscopy 2018-10-27 05:00:00 [facility] Her de la garza Bone density scan 2018-08-27 05:00:00 [facility] ermann Pap smear and HPV 2018-04-28 [facility]sup[facility] Eye examination 2017-05-29 00:00:00 [facility] banner Pelvic examination 2016-12-26 05:00:00 [facility] vaginal Pap smear results 2012-09-26 13:44:59 Ca moriil Tru colonoscopy 2009-08-25 15:18:42 [facility] Her de la garza mammogram 2003-04-18 16:19:12 [facility] banner Hysterectomy [facility] Procedure on pancreas [facility] Removal of gallbladder [facility] Suspension of bladder [facility] Thyroidectomy [facility] Tonsillectomy [facility] Plan of Care Planned Activity Planned Date Details Comments Source Future Scheduled 2021-01-20 MT DESTRUC Ordered: Lucien [facility] Test 14:16:12 PREMALIGNANT, FIRST 01/20/2021 of Medic ine LESION(89642) [code = 31008] Future Scheduled 2021-01-20 MT DESTRUC Ordered: Lucien [facility] Test 14:16:12 PREMALIGNANT,2-14 01/20/2021 of Medicin e LESIONS(54899) [code = 96577] Future Scheduled 2021-01-20 Screening for [facility] Test 13:45:07 malignant neoplasm of Medici ne of colon (procedure) [code = 245825571] Future Scheduled 2021-01-20 Screening for [facility] Test 13:45:07 malignant neoplasm of Medici ne of breast (procedure) [code = 049391539] Future Scheduled 2021-01-20 TETANUS SHOT (ADULT) [employer] Test 13:45:07 [code = TETANUS SHOT of Medi cine (ADULT)] Future Scheduled 2021-01-20 Diabetic foot [facility] Test 13:45:07 examination of Medicine (regime/therapy) [code = 061763557] Future Scheduled 2021-01-20 ANNUAL DIABETIC [facility] Test 13:45:07 RETINOPATHY of Medicine SCREENING [code = ANNUAL DIABETIC RETINOPATHY SCREENING] Future Scheduled 2021-01-20 BMI FOLLOW UP PLAN [employer] Test 13:45:07 [code = BMI FOLLOW of Medici ne UP PLAN] Future Scheduled 2021-01-20 Hepatitis C [facility] Marissa [facility]ge Test 13:45:07 screening of Medicine (procedure) [code = 464546521] Future Scheduled 2021-01-20 ZOSTER VACCINE (1 of [employer] Test 13:45:07 2) [code = ZOSTER of Medicin e VACCINE (1 of 2)] Future Scheduled 2021-01-20 FALL SCREEN [code = [employer] Test 13:45:07 FALL SCREEN] of Medicine Future Scheduled 2021-01-20 Screening for [facility] Test 13:45:07 osteoporosis of Medicine (procedure) [code = 160989576] Future Scheduled 2021-01-20 MEDICARE AWV [facility] Marissa ege Test 13:45:07 (Initial) [code = of Medicin e MEDICARE AWV (Initial)] Future Scheduled 2021-01-20 FLU VACCINE > 6 [facility] Test 13:45:07 MONTHS [code = FLU of Medici ne VACCINE > 6 MONTHS] Future Scheduled MT DESTRUC Ordered: [facility] Marissa [facility]ge Test PREMALIGNANT,2-14 11/26/2019 of Medicin e LESIONS(44697) [code = 15856] Future Scheduled MT DESTRUC Ordered: [facility] Marissa ege Test PREMALIGNANT, FIRST 11/26/2019 of Medic ine LESION([id number]) [code = 39542] Future Scheduled COLON CANCER [facility] Marissa ege Test SCREENING: of Medicine COLONOSCOPY [code = COLON CANCER SCREENING: COLONOSCOPY] Future Scheduled MAMMOGRAM ANNUAL [facility] Test [code = MAMMOGRAM of Medicin e ANNUAL] Future Scheduled TETANUS SHOT (ADULT) [facility] Test [code = TETANUS SHOT of Medi cine (ADULT)] Future Scheduled Diabetic foot [facility] Col lege Test examination of Medicine (regime/therapy) [code = 043746212] Future Scheduled ANNUAL DIABETIC [facility] Test RETINOPATHY of Medicine SCREENING [code = ANNUAL DIABETIC RETINOPATHY SCREENING] Future Scheduled BMI FOLLOW UP PLAN [facility] r College Test [code = BMI FOLLOW of Medici ne UP PLAN] Future Scheduled HEPATITIS C [facility] Marissa ege Test SCREENING [code = of Medicin e HEPATITIS C SCREENING] Future Scheduled FALL SCREEN [code = [facility] or [facility] Test FALL SCREEN] of Medicine Future Scheduled OSTEOPOROSIS [facility] Test SCREENING [code = of Medicin e OSTEOPOROSIS SCREENING] Future Scheduled PNEUMOVAX >=65 [facility] Co [facility] Test (PPSV23) [code = of Medicine PNEUMOVAX >=65 (PPSV23)] Future Scheduled MEDICARE AWV [facility] Test (Initial) [code = of Medicin e MEDICARE AWV (Initial)] Future Scheduled FLU VACCINE > 6 [facility] Test MONTHS [code = FLU of Medici ne VACCINE > 6 MONTHS] Encounters Start End Encounter Admission Attending Care Care Encounter Source Date/Time Date/Time Type Type Clinicians Facility Department ID 2021-05-24 2021-05-24 Outpatient [place]farb[facility] [facility] [id number] [place] 10:09:00 10:09:00 [id number] [facility] 2021-04-28 2021-04-28 Outpatient Goldfarb_R [facility] [id number] [place] 03:31:00 03:31:00 [id number] [facility] 2021-04-26 2021-04-26 Outpatient Goldfarb_R U U [id number] [place] 12:24:00 12:24:00 [id number] [facility] 2021-04-26 2021-04-26 Outpatient Aquiles, [facility] U [id number] 00:00:00 00:00:00 Garth [id number] 2021-01-25 2021-01-25 Outpatient [facility] [id number] [place] 09:30:00 09:30:00 26 l Tru 2021-01-22 2021-01-22 Outpatient Goldfarb_R [facility] [address] [place] 11:17:00 11:17:00 [id number] [facility] 2021-01-20 2021-01-20 Office Kishor Smith [facility] [id number] [facility] 13:27:46 13:42:46 Visit E AMBULATOR 350.1.13.21 College Y 0.2.7.2.686 [id number] Medi sandra 300 e 2021-01-13 2021-01-13 Outpatient Goldfarb_R [facility] [address] [place] 12:59:00 12:59:00 [id number] [facility] 2021-01-13 2021-01-13 Outpatient Aquiles, [facility] U [id number] 00:00:00 00:00:00 Garth [id number] 2020-12-21 2020-12-22 Between nullFlavo [facility] [id number] [place] 18:56:53 18:56:53 Visit r Primary 58 l Care [facility] 2020-12-17 2020-12-18 Outpatient nullFlavo [facility] [id number] [place] 15:00:00 04:59:59 r Primary 25 l Care [facility] 2020-12-10 2020-12-10 Outpatient Goldfarb_R [facility] [address] [place] 02:14:00 02:14:00 [id number] [facility] 2020-11-06 2020-11-06 Outpatient Goldfarb_R [facility] [address] [place] 01:04:00 01:04:00 [id number] [facility] 2020-10-20 2020-10-20 Outpatient Goldfarb_R [facility] [address] [place] 08:46:00 08:46:00 [id number] [facility] 2020-10-13 2020-10-13 Outpatient Goldfarb_R [facility] [id number] [place] 12:44:00 12:44:00 [id number] [facility] 2020-10-13 2020-10-13 Outpatient Aquiles, U [facility] [id number] 00:00:00 00:00:00 Garth [id number] 2020-10-13 2020-10-13 Outpatient AQUILES, [facility] [id number] [place] 00:00:00 00:00:00 GARTH [address] 2020-09-15 2020-09-15 Outpatient Goldfarb_R U [facility] [id number] [place] 03:44:00 03:44:00 [id number] [facility] 2020-07-21 2020-07-21 Outpatient [facility] [id number] [place] 11:00:00 11:00:00 24 l [facility] 2020-07-02 2020-07-02 Outpatient JACKY Leblanc [facility] [id number] [facility] 12:00:00 12:00:00 Armando [id number] [facility] 2020-06-23 2020-06-23 Outpatient [facility] [id number] [place] 00:00:00 00:00:[address] 2020-06-02 2020-06-02 Outpatient [facility] [id number] [address] [place] [address] 00:00:00 00:00:[address] 2020-03-24 2020-03-25 Outpt Diag nullFlavo [facility] [id number] [place] 15:23:00 04:59:00 Services r Outpatient 02 l Imaging [facility] 2020-02-28 2020-02-29 Between nullFlavo [facility] [id number] [place] 20:46:17 20:46:17 Visit r Primary 53 l Care [place] 2020-01-03 2020-01-04 Between nullFlavo [facility] [id number] [place] 19:48:15 19:48:15 Visit r Primary 52 l Care [place] 2019-12-10 2019-12-11 Outpatient nullFlavo [facility] [id number] [place] 15:15:00 04:59:59 r Primary 23 l Care [place] 2019-11-26 2019-11-26 Office Kishor Smith [facility] [id number] 09:50:21 10:05:21 Visit E AMBULATOR 350.1.13.21 Y 0.2.7.2.686 [id number] 2019-11-26 2019-11-26 Office Kishor Smith [facility] [id number] [facility] 09:50:21 10:05:21 Visit E AMBULATOR 350.1.13.21 College Y 0.2.7.2.686 of [id number] [facility] 300 e 2019-11-21 2019-11-23 Phone nullFlavo [facility] [id number] [place] 15:18:23 04:59:59 Message r Primary 26 l Care [place] 2019-11-15 2019-11-16 Between nullFlavo [facility] [id number] [place] 18:59:50 18:59:50 Visit r Primary 50 l Care [place] 2019-11-13 2019-11-15 Phone nullFlavo [facility] [id number] [place] 13:33:12 04:59:59 Message r Primary 25 l Care [place] 2019-11-13 2019-11-15 Phone nullFlavo [facility] [id number] [place] 13:31:56 04:59:59 Message r Primary 24 l Care [place] 2019-11-06 2019-11-06 Ambulatory nullFlavo [facility] [id number] [place] 18:45:00 18:45:00 Pre-Reg r Primary 22 l Care [place] 2019-09-26 2019-09-28 Phone nullFlavo [facility] [id number] [place] 13:36:33 04:59:59 Message r Primary 23 l Care [place] 2019-06-27 2019-06-27 Outpatient JACKY Leblanc, [facility] [id number] [facility] 12:00:00 12:00:00 Armando [id number] [facility] 2019-04-23 2019-04-24 Between nullFlavo [facility] [id number] [place] 15:23:50 15:23:50 Visit r Primary 46 l Care [place] [facility] 2019-04-02 2019-04-03 Outpatient nullFlavo [facility] [id number] [place] 16:30:00 05:59:59 r Primary 21 l Care [place] [facility] 2019-01-01 2019-01-02 Outpatient nullFlavo [facility] [id number] [place] 16:30:00 04:59:59 r Primary [facility] l [facility] 2018-12-26 2018-12-27 Between nullFlavo [facility] [id number] [place] 13:27:19 13:27:19 Visit r Primary 44 l Care [facility] 2018-11-23 2018-11-23 Bedded nullFlavo [facility] [id number] [place] 12:09:00 15:10:00 Outpatient r Tru [address] [facility] 2018-11-23 2018-11-23 Outpatient MHBL [facility] [id number] [facility] 07:09:00 07:09:00 2018-11-19 2018-11-20 Outpatient nullFlavo [facility] [id number] [facility] 14:12:00 04:59:00 r Tru 43 l [facility] 2018-11-19 2018-11-19 Outpatient MHSE MHSE [id number] 09:12:00 09:12:00 [facility] 2018-10-23 2018-10-24 Outpatient nullFlavo [facility] [id number] [place] 16:45:00 04:59:59 r Primary 20 l Care [facility] 2018-10-05 2018-10-06 Between nullFlavo [facility] [id number] [place] 18:35:48 18:35:48 Visit r Primary 41 l Care [facility] 2018-09-21 2018-09-22 Outpatient nullFlavo [facility] [id number] [place] 16:45:00 04:59:59 r Primary 18 l Care [facility] 2018-08-30 2018-08-31 Between nullFlavo [facility] [id number] [place] 18:58:30 18:58:30 Visit r Primary 39 l Care [facility] 2018-08-27 2018-08-28 Outpt Diag nullFlavo [facility] [id number] [place] 15:05:00 04:59:00 Services r Outpatient 01 l [facility] 2018-08-21 2018-08-22 Between nullFlavo [facility] [id number] [place] 19:49:16 19:49:16 Visit r Primary 38 l Care [place] [facility] 2018-08-15 2018-08-16 [place] [id number] [place] 15:45:00 04:59:59 r Primary 17 l Care [place] [facility] 2018-05-16 2018-05-17 [place] [id number] [place] 19:30:00 05:59:59 r Primary 16 l Care [place] [facility] 2018-05-02 2018-05-02 [place] [id number] [place] 19:30:00 19:30:00 Pre-Reg r Primary 15 l Care [place] [facility] 2018-04-13 2018-04-15 Phone nullFlavo MG [id number] [place] 15:18:00 05:59:59 Message r Primary 22 l Care [place] [facility] 2018-01-31 2018-02-01 Outpatient nullFlavo [facility] [id number] [place] 16:15:00 04:59:59 r Primary 14 l Care [place] [facility] 2017-12-27 2017-12-28 [place] [id number] [place] 15:30:00 04:59:59 r Primary 13 l Care [place] [facility] 2017-12-22 2017-12-22 [place] [id number] [facility] 18:30:00 18:30:00 Pre-Reg r Primary 12 l Care [place] [facility] 2017-09-21 2017-09-22 [place] [id number] [facility] 18:30:00 04:59:59 r Primary 11 l Care [place] [facility] 2017-09-21 2017-09-21 [place] [id number] [place] 19:00:00 19:00:00 Pre-Reg r Primary 10 l Care [place] [facility] 2017-08-22 2017-08-24 Phone nullFlavo MG [id number] [place] 13:18:00 04:59:59 Message r Primary 21 l Care [place] [facility] 2017-08-14 2017-08-16 Phone nullFlavo [facility] [id number] [place] 13:03:00 04:59:59 Message r Primary 20 l Care Stacey Rosario [facility] 2017-07-27 2017-07-29 Phone nullFlavo [facility] [id number] [place] 16:18:00 05:59:59 Message r Primary 19 l Care Stacey Rosario [facility] 2017-07-10 2017-07-12 Phone nullFlavo [facility] [id number] [place] 14:07:00 05:59:59 Message r Primary 18 l Care Stacey Rosario [facility] 2017-07-06 2017-07-08 Phone nullFlavo [facility] [id number] [place] 14:45:00 05:59:59 Message r Primary 17 l Care Stacey Rosario [facility] 2017-07-06 2017-07-08 Phone nullFlavo [facility] [id number] [place] 14:40:00 05:59:59 Message r Primary 16 l Care Stacey Rosario [facility] 2017-07-06 2017-07-08 Phone nullFlavo [facility] [id number] [place] 14:34:00 05:59:59 Message r Primary 15 l Care Stacey Rosario [facility] 2017-07-03 2017-07-05 Phone nullFlavo [facility] [id number] [place] 18:03:00 05:59:59 Message r Primary 14 l Care Stacey Rosario [facility] 2017-06-16 2017-06-17 Outpatient nullFlavo [facility] [id number] [place] 20:00:00 05:59:59 r Primary 09 l Care Stacey Rosario [facility] 2017-04-28 2017-04-30 Phone nullFlavo [facility] [id number] [place] 14:49:00 05:59:59 Message r Primary 13 l Care Stacey Rosario [facility] 2017-01-06 2017-01-06 Outpatient MHIE THUANIE [id number] [place] 14:00:00 14:00:00 08 danial Tru 2016-09-13 2016-09-13 Outpatient MHIE THUANIE [id number] [place] 14:00:00 14:00:00 06 danial Ott 2016-06-20 2016-06-20 Outpatient MHIE THUANIE [id number] [place] 12:15:00 12:15:00 07 danial Ott 2016-06-14 2016-06-14 Outpatient MHIE MHIE [id number] [place] 14:00:00 14:00:00 04 danial Ott 2016-06-10 2016-06-10 Outpatient MHIE MHIE [id number] [place] 14:45:00 14:45:00 05 danial Ott 2016-05-05 2016-05-05 Outpatient MHIE MHIE [id number] [place] 13:30:00 13:30:00 03 danial Ott 2016-01-05 2016-01-05 Outpatient MHIE MHIE [id number] [place] 13:30:00 13:30:00 02 danial Ott 2015-09-01 2015-09-01 Outpatient MHIE MHIE [id number] [place] 13:45:00 13:45:00 01 danial Ott 2015-05-01 2015-05-01 Outpatient MHIE MHIE [id number] [place] 09:30:00 09:30:00 00 danial Ott 2014-08-14 2014-08-14 Office nullFlavo [facility] [id number] [place] 00:00:00 00:00:00 Visit rachelle Ott [id number] [facility]ial [facility] 2014-08-14 2014-08-14 Lab Report nullFlavo [facility] [id number] [facility] 00:00:00 00:00:00 rachelle Ott [id number] [facility] 2014-04-30 2014-04-30 Lab Report nullFlavo [facility] [id number] [facility] 00:00:00 00:00:00 rachelle Ott [id number] [facility] 2014-04-30 2014-04-30 Office nullFlavo [facility] [id number] [place] 00:00:00 00:00:00 Visit rachelle Ott [id number] danial Medical [facility] 2014-03-03 2014-03-03 Office nullFlavo [facility] [id number] [place] 00:00:00 00:00:00 Visit rachelle Ott [id number] [facility] 2014-01-29 2014-01-29 Office nullFlavo [facility] [id number] [facility] 00:00:00 00:00:00 Visit rachelle Ott [id number] danial Medical Tru [facility] 2014-01-29 2014-01-29 Lab Report nullFlavo [facility] [id number] [facility] 00:00:00 00:00:00 r Tru [id number] l Medical Tru [facility] 2013-10-30 2013-10-30 Office nullFlavo [facility] [id number] [facility] 00:00:00 00:00:00 Visit r Tru [id number] l [facility] 2013-10-30 2013-10-30 Lab Report nullFlavo [facility] [id number] [facility] 00:00:00 00:00:00 r Tru [id number] [facility]ial [facility] 2013-09-11 2013-09-11 Office nullFlavo [facility] [id number] [place] 00:00:00 00:00:00 Visit r Tru [id number] danial [facility] 2013-08-21 2013-08-21 Office nullFlavo [facility] [id number] [place] 00:00:00 00:00:00 Visit r Tru [id number] danial Medical [facility] 2013-08-21 2013-08-21 Lab Report nullFlavo [facility] [id number] Memoria 00:00:00 00:00:00 r Tru [id number] l [facility] Results Test Description Test Time Test Comments Results Result Comments Source CHEM PANEL 2020-12-17 175 [facility] 15:58:00 Tru CHEM PANEL 2020-12-17 20 [facility] 15:58:00 [facility] CHEM PANEL 2020-12-17 0.66 [facility] 15:58:00 Tru CHEM PANEL 2020-12-17 88 [facility] 15:58:00 [facility] CHEM PANEL 2020-12-17 102 [facility] 15:58:00 [facility] CHEM PANEL 2020-12-17 136 [facility] 15:58:00 [facility] CHEM PANEL 2020-12-17 4.6 [facility] 15:58:00 Tru CHEM PANEL 2020-12-17 101 [facility] 15:58:00 Tru CHEM PANEL 2020-12-17 26 [facility] 15:58:00 Tru CHEM PANEL 2020-12-17 10.3 [facility] 15:58:00 Tru CHEM PANEL 2020-12-17 6.4 [facility] 15:58:00 Tru CHEM PANEL 2020-12-17 3.8 [facility] 15:58:00 [facility] CHEM PANEL 2020-12-17 2.6 [facility] 15:58:00 Tru CHEM PANEL 2020-12-17 1.5 [facility] 15:58:00 [facility] CHEM PANEL 2020-12-17 0.6 [facility] 15:58:00 [facility] CHEM PANEL 2020-12-17 76 [facility] 15:58:00 [facility] CHEM PANEL 2020-12-17 15 [facility] 15:58:00 [facility] CHEM PANEL 2020-12-17 9 [facility] 15:58:00 [facility] LIPIDS 2020-12-17 161 [facility] 15:58:00 Tru LIPIDS 2020-12-17 63 [facility] 15:58:00 Tru LIPIDS 2020-12-17 140 [facility] 15:58:00 [facility] LIPIDS 2020-12-17 76 [facility] 15:58:00 [facility] LIPIDS 2020-12-17 2.6 [facility] 15:58:00 Tru LIPIDS 2020-12-17 98 [facility] 15:58:00 [facility] SPECIAL CHEMISTRY 2020-12-17 8.9 Memoria l 15:58:00 [facility] Chemistry 2014-08-14 7.6 [facility] 14:00:00 Tru Chemistry 2014-08-14 27 [facility] 14:00:00 Tru Chemistry 2014-08-14 3.850 [facility] 14:00:00 Tru Chemistry 2014-04-30 7.8 [facility] 15:30:00 [facility] Chemistry 2014-04-30 218 [facility] 15:30:00 Tru Chemistry 2014-04-30 139 [facility] 15:30:00 [facility] Chemistry 2014-04-30 63 [facility] 15:30:00 Tru Chemistry 2014-04-30 127 [facility] 15:30:00 [facility] Chemistry 2014-04-30 140 MEQ/L [facility] 15:30:00 Rtu Chemistry 2014-04-30 4.0 MEQ/L [facility] 15:30:00 Tru Chemistry 2014-04-30 0.5 [facility] 15:30:00 Tru Chemistry 2014-04-30 11 [facility] 15:30:00 [facility] Chemistry 2014-04-30 15:30:00 Test Item Value Reference Range Interpretation Comme nts BUN/CREAT (test code = BUN/CREAT) 22 1 6-25 [facility] QiwusckAwnyeuxrm6416-77-91 15:30:004.0[facility] 2014-04-30 15:30:0010.1[facility] WzollijFczslntct9385-55-24 15:30:0016[facility] GealkzqUcdeibxrm3811-94-91 15:30:0015[facility] NawtcegUwczmftjv1311-54-77 15:30:0081[facility]orial FggjtocZcrdogwnm1225-34-80 15:30:001.540[facility] Tru Kllsmxuasl7652-45-45 15:30:0013.8[facility]orial CnuswuqNmfortrubu9442-08-52 15:30:00 41.9Memorial EesugtbTdjetvfdbb7447-41-20 15:30:92549 K/CMMMemorial [facility] Syjnuktkk7233-10-88 14:00:007.9Memorial MhqxcxjUvjfumipq6759-49-99 14:00:001.550 Memorial CpswkosVftcuunfy8143-78-93 14:00:007.9[facility] 2014-01-29 14:00:001.550[facility] SapihfsRwqqipjqp2895-43-58 14:10:009.0[facility]orial ZecqhpnFmuahtqms7550-85-93 14:10:61992Otqmiuwu UfwdxcgCffkiouvi0877-28-74 14:10:99512Xpvcozdx GkffnacQnfpknmov3443-47-58 14:10:009.0[facility] Gjdyluegq8573-49-44 14:10:02697Lzigvhhn YnydcowLmuwbjpiv7770-74-21 14:10:98899 [facility] OezjmbaYkpffveli5502-72-62 14:10:0062[facility] 2013-10-30 14:10:36073Ccvxcnic FhosfkgGheeofrym8606-21-63 14:10:002.420[facility]orial KdimzuwRiaegvxcd9405-70-39 14:30:008.7[facility]orial XashjhhYvabwqjis0404-20-89 14:30:47057Qxelvpyy HmspfdlPizruyfsh0262-39-09 14:30:05588Ooabzrfe Tru Ycelqzfmd9047-84-89 14:30:008.7[facility]orial GyatzysZzxvztnkr5049-48-61 14:30:48759 [facility] EgprzmnVslobojnz5696-56-21 14:30:33302Nkbtyywe [facility] 2013-08-21 14:30:0055[facility] WyfhydbIutikleeu7531-83-09 14:30:38704Tbtphsmg SygrtyiRqckqrecr3209-78-65 14:30:001.290Memorial AhljngfXrnbhjhek7006-02-16 14:00:006.8Memorial RyphsnoZxkgmbsdo8261-25-07 14:00:82731Vfvqcdmp Tru Qezxahhky4327-74-86 14:00:05421Yeqxojrx EvaadwoEhkkpvhyz7728-65-04 14:00:006.8 Memorial OdlwwqvThqcwqpnv1521-41-02 14:00:58656Djjckiyu [facility] 2013-03-26 14:00:68532Meevukye VdsrhwyLrfmnwjnk9420-73-27 14:00:0071[facility]orial UbnxmjsInbsehply3858-08-23 14:00:14911Uzkhnlvv VempvjwUemexaxtn6736-12-56 14:00:66534 MEQ/LMemorial RymmnbxJbpadmwss6562-75-80 14:00:004.8 MEQ/LMemorial XhwthmtLuykaspnt2904-37-84 14:00:000.6Memorial TdazmxaAptvxxwts0633-00-11 14:00:0011Memorial UakbltpCvukwxziz2365-16-40 14:00:00 Test Item Value Reference Range Interpretation Comments BUN/CREAT (test code = BUN/CREAT) 18 1 6-25 [facility] FrdsllkHojgxpkfr7948-68-47 14:00:004.0[facility] 2013-03-26 14:00:0010.7Memorial SdolipcAlybkszeg2916-26-46 14:00:0017Memorial LylglkoIyluamvxh5873-13-58 14:00:0018Memorial PlqkdseFyrntaoep6002-50-33 14:00:0089Memorial CgxkzyeJkkbggrag3905-66-95 14:00:000.724[facility] Eebuoekceh5470-93-78 14:00:0012.0[facility]orial GknojjmVaqvgqslic3003-27-16 14:00:00 38.6Memorial ZpdziwiJvvpepnyep2454-94-97 14:00:69082 K/CMMMemorial [facility] Qmesmxqjm3776-96-42 21:50:0026Memorial UhewclnQkepurlvq6174-79-38 21:50:58402 MEQ/LMemorial ItumqqyIjazoehsv1551-99-17 21:50:004.0 MEQ/L[facility] Reyuuftqm8728-02-80 21:50:0026Memorial JgnuplnEzbhhfkfp1395-88-58 21:50:69254 MEQ/LMemorial NchrtbsFhbtgdjmj9079-84-74 21:50:004.0 MEQ/LMemorial Tru Hnrjqdamx5727-46-73 21:50:000.6Memorial GftijrdElwuwvmbe7848-38-06 21:50:009 Memorial OynsujgXwmtejdjz1247-43-36 21:50:00 Test Item Value Reference Range Interpretation Comments BUN/CREAT (test code = BUN/CREAT) 15 1 6-25 [facility] ZfhizfeOhmhhonqr3800-79-78 21:50:004.0[facility] 2013-01-04 21:50:009.7Memorial WdstoovVkpqxywzs0217-00-70 21:50:0014Memorial BtyoffuKbzzosnhs6704-38-10 21:50:0012Memorial QaoiscxQjftzchep2525-03-09 21:50:0073Memorial PemjtzrGetyxguat4580-33-99 21:50:000.409Memorial Tru Cazjzfhsux2527-41-98 21:50:0011.2Memorial ZnzzjcoImprbqagva3327-11-59 21:50:00 36.7Memorial JspysaeDluhdpkjqj0706-58-07 21:50:04139 K/CMMMemorial HermannOb/Magnetizer 2012-09-26 13:44:59CompleteMemorial HermannOb/Sjl9190-62-22 13:44:59Complete Memorial HermannOb/Thq1787-00-95 13:44:59CompleteMemorial HermannOb/Magnetizer 2012-09-26 13:44:59CompleteMemorial HermannOb/Uvh5343-52-51 13:44:59Complete [facility] KpgakbpDtuejlfwp7475-38-41 13:44:59CompleteMemorial HermannPathology 2012-09-26 13:44:59CompleteMemorial [facility]idian
[2021-06-05 13:12] LABS: Absolute Lymphocytes (CBC) 2.5 K/uL (0.7-4.9); Hematocrit 39.7 % (36.0-45.0); Lymphocytes % 24.9 % (15.3-44.8); MPV 7.7 fL (7.6-11.3); RBC Red Blood Cell Count 4.81 M/uL (3.86-4.86)
[2021-06-05 13:31] LABS: ALT/SGPT 15 U/L (12-78); AST/SGOT 15 U/L (15-37); Albumin 3.3 g/dL (3.4-5.0); Alkaline Phosphatase 88 U/L (45-117); BUN Blood Urea Nitrogen 14 mg/dL (7-18); Bicarbonate 24 mmol/L (21-32); Bilirubin Direct 0.2 mg/dL (0-0.2); Bilirubin Total 0.6 mg/dL (0.2-1.0); Glucose Level 121 mg/dL (74-106); Lipase 53 U/L (73-393); Magnesium 1.8 mg/dL (1.8-2.4); NT PRO-BNP 52 pg/mL (<125); Potassium 4.3 mmol/L (3.5-5.1); Protein, Total 7.2 g/dL (6.4-8.2); Sodium Level 136 mmol/L (136-145); Troponin (Emerg Dept Use Only) < 0.02 ng/mL (0.0-0.045)
--- NOTE | 2021-06-05 14:01 | RAD REPORT ---
EXAM DESCRIPTION: RAD - Chest Single View - 06/05/2021 1:55 pm CLINICAL HISTORY: epigastric pain Chest pain. COMPARISON: Chest Single View dated 11/28/2020; Chest Single View dated 10/02/2017; CHEST PA AND LAT 2 V IEW dated 12/20/1999; CHEST PA AND LAT 2 VIEW dated 07/19/1994 FINDINGS: Portable technique limits examination quality. The lungs are grossly clear. The heart is moderately prominent in size. No displaced fractures.
--- NOTE | 2021-06-05 14:34 | RAD REPORT ---
EXAM DESCRIPTION: CT - Chest For Pe Angio - 06/05/2021 2:17 pm CLINICAL HISTORY: Chest pain. CHEST PAIN COMPARISON: EXT VENOUS BILATERAL dated 01/29/2013bdomen Pelvis W Contrast dated 06/05/2021 TECHNIQUE: CT angiogram of the pulmonary arteries was performed with MIP. All CT scans are performed using dose optimization technique as appropriate and may include automated exposure control or mA/KV adjustment according to patient size. FINDINGS: No evidence of pulmonary thromboembolism. No acute aortic finding demonstrated. 5 mm spiculated nodule seen in the superior segment left lower lobe (image 51/208). No focal pulmonar y infiltrate. No significant pericardial or pleural fluid. No concerning bony finding. IMPRESSION: No evidence of pulmonary thromboembolism. 5 mm spiculated nodule superior segment left lower lobe. Recommend followup CT chest in 3-6 months.
--- NOTE | 2021-06-05 14:41 | RAD REPORT ---
EXAM DESCRIPTION: CTAbdomen Pelvis W Contrast - 06/05/2021 2:18 pm CLINICAL HISTORY: Abdominal pain. abdominal pain COMPARISON: No comparisons TECHNIQUE: Biphasic CT imaging of the abdomen and pelvis was performed with 100 ml non-ionic IV cont rast. All CT scans are performed using dose optimization technique as appropriate and may include automated exposure control or mA/KV adjustment according to patient size. FINDINGS: The lung bases are clear.Cholecystectomy clips. The liver, spleen, pancreas, adrenal glands and kidneys are within normal limits. No bowel obstruction, free air, free fluid or abscess. Mild sigmoid diverticulosis coli is present. N ormal appendix. No evidence of significant lymphadenopathy. Small fat containing umbilical hernia. No suspicious bony findings. 4.3 cm right ovarian cyst. 2.5 cm left ovarian follicle. IMPRESSION: No acute intra-abdominal or pelvic finding. Bilateral ovarian cysts, larger on the right. This is somewhat unusual for age, advise follow-up pelv ic ultrasound in 3 months.
--- NOTE | 2021-06-05 15:27 | ER ---
Nurse's Notes [facility] Name: Faviola Balderas Age: 71 yrs Sex: Female : 1950 Arrival Date: 06/05/2021 Time: 12:31 Bed 5 Private MD: Sharon Patton Diagnosis: Upper abdominal pain, unspecified Presentation: 06/05 12:36 Chief complaint: Patient states: epigastric pain for 3 days, HX of GERD but pain is jg9 worse than ever experienced with GERD, pain is intermittent currently 6/10 and radiates straight back, patient reports recent diarrhea also but denied sob, nausea, vomiting, dizziness or lightheartedness. Coronavirus screen: Vaccine status: Patient reports receiving the 2nd dose of the covid vaccine. Patient reports receiving the 1st dose of the Covid vaccine. Ebola Screen: Patient negative for fever greater than or equal to 101.5 degrees Fahrenheit, and additional compatible Ebola Virus Disease symptoms Patient denies exposure to infectious person. Patient denies travel to an Ebola-affected area in the 21 days before illness onset. Initial Sepsis Screen: Does the patient meet any 2 criteria? No. Patient's initial sepsis screen is negative. Does the patient have a suspected source of infection? No. Patient's initial sepsis screen is negative. Risk Assessment: Do you want to hurt yourself or someone else? Patient reports no desire to harm self or others. 12:36 Method Of Arrival: Ambulatory 9 12:36 Acuity: MORIAH 3 jg9 12:40 Onset of symptoms is unknown. j9 Triage Assessment: 12:39 General: Appears in no apparent distress. Behavior is calm. Pain: Complains of pain in jg9 chest-intermittent. GI: Reports diarrhea. Historical: - Allergies: 12:38 Bactrim; jg9 12:38 Macrobid; jg9 12:38 NITROFURAN DERIVATIVES; jg9 12:38 Sulfa (Sulfonamide Antibiotics); jg9 - PMHx: 12:38 Asthma; Dextrocardia; Diabetes - IDDM; glucaoma; Hypertension; Hypothyroidism; jg9 tahlassemia; - PSHx: 12:38 bladder suspension; Cholecystectomy; hysterectomy; Thyroidectomy; done by radiation jg9 capsule; Tonsillectomy; - Immunization history:: Adult Immunizations up to date, Client reports receiving the 2nd dose of the Covid vaccine, Client reports receiving the 1st dose of the Covid vaccine, Pneumococcal vaccine is up to date, Flu vaccine is up to date. - Social history:: Smoking status: Patient denies any tobacco usage or history of. Screenin:40 Abuse screen: Denies threats or abuse. Denies injuries from another. Nutritional jg9 screening: No deficits noted. Tuberculosis screening: No symptoms or risk factors identified. Fall Risk None identified. Assessment: 15:59 Reassessment: Patient appears in no apparent distress at this time. No changes from tw2 previously documented assessment. Patient and/or family updated on plan of care and expected duration. Pain level reassessed. Patient is alert, oriented x 3, equal unlabored respirations, skin warm/dry/pink. Vital Signs: 12:36 BP 169 / 62; Pulse 64; Resp 17 S; Temp 97.2(TE); Pulse Ox 100% on R/A; Weight 98.88 kg j9 (R); Height 5 ft. 2 in. (157.48 cm) (R); 14:40 BP 113 / 41; Pulse 63; Resp 17; Pulse Ox 100% on R/A; tw2 15:58 BP 122 / 50; Pulse 65; Resp 17; Pulse Ox 96% on R/A; tw2 12:36 Body Mass Index 39.87 (98.88 kg, 157.48 cm) 9 ED Course: 12:31 Patient arrived in ED. as 12:31 Sharon Patton is Private Physician. as 12:38 Triage completed. j9 12:41 Bed in low position. Call light in reach. chief electrician on. Pulse ox on. NIBP on. tw2 12:42 Jax Florian PA is PHCP. [facility] 12:42 Grant Davidson MD is Attending Physician. m 12:47 Watson Schmitt, LAURYN is Primary Nurse. bp 13:03 Inserted saline lock: 22 gauge in right forearm, using aseptic technique. jg9 13:49 Arm band placed on. tw2 13:55 XRAY Chest (1 view) In Process Unspecified. EDMS 14:17 CT Chest For PE Angio In Process Unspecified. EDMS 14:18 CT Abd/Pelvis - IV Contrast Only In Process Unspecified. EDMS 15:58 No provider procedures requiring assistance completed. IV discontinued, intact, tw2 bleeding controlled, No redness/swelling at site. Pressure dressing applied. Administered Medications: 15:30 Drug: GI Cocktail without - (Maalox Suspension 30 ml, Lidocaine Liquid 2 % 15 tw2 ml) Route: PO; 15:58 Follow up: Response: No adverse reaction tw2 Outcome: 15:27 Discharge ordered by . parsi 15:58 Discharged to home ambulatory, with significant other. tw2 15:58 Condition: stable 15:58 Discharge instructions given to patient, significant other, Instructed on discharge instructions, follow up and referral plans. medication usage, Demonstrated understanding of instructions, follow-up care, medications, Prescriptions given X 1. 15:59 Patient left the ED. tw2 Signatures: Dispatcher [employer] EDMS Jax Florian PA PA jmm Martinez, Amelia as Wise, Tara, RN RN tw2 Watson Schmitt RN RN Hodan Virgen RN RN jg9
--- NOTE | 2021-06-05 15:27 | EDPHYS ---
Physician Documentation [facility] Name: Faviola Balderas Age: 71 yrs Sex: Female : 1950 Arrival Date: 06/05/2021 Time: 12:31 Bed 5 Private MD: Sharon Patton ED Physician Grant Davidson HPI: 06/05 13:00 This 71 yrs old Female presents to ER via Ambulatory with complaints of Epigastric Pain.jmm 13:00 The patient presents with abdominal pain in the epigastric area. Onset: The jmm symptoms/episode began/occurred gradually, 3 day(s) ago. The symptoms do not radiate. Associated signs and symptoms: Pertinent negatives: fever. The symptoms are described as achy. Modifying factors: The symptoms are alleviated by nothing, the symptoms are aggravated by nothing. This is a 71 year old female with a history of DM that presents to the ED with complaints of epigastric pain beginning approx 3 days ago with a few episodes of watery diarrhea. Denies fever, denies vomiting. Denies chest pain. Denies sob. . 13:00 The patient has experienced a previous episode, but today's symptoms are worse. jmm Historical: - Allergies: 12:38 Bactrim; jg9 12:38 Macrobid; jg9 12:38 NITROFURAN DERIVATIVES; jg9 12:38 Sulfa (Sulfonamide Antibiotics); jg9 - PMHx: 12:38 Asthma; Dextrocardia; Diabetes - IDDM; glucaoma; Hypertension; Hypothyroidism; jg9 tahlassemia; - PSHx: 12:38 bladder suspension; Cholecystectomy; hysterectomy; Thyroidectomy; done by radiation jg9 capsule; Tonsillectomy; - Immunization history:: Adult Immunizations up to date, Client reports receiving the 2nd dose of the Covid vaccine, Client reports receiving the 1st dose of the Covid vaccine, Pneumococcal vaccine is up to date, Flu vaccine is up to date. - Social history:: Smoking status: Patient denies any tobacco usage or history of. ROS: 13:00 Constitutional: Negative for fever, chills, and weight loss, Cardiovascular: Negative jm for chest pain, palpitations, and edema, Respiratory: Negative for shortness of breath, cough, wheezing, and pleuritic chest pain. 13:00 Abdomen/GI: Positive for abdominal pain, diarrhea. 13:00 All other systems are negative. Exam: 13:00 Constitutional: This is a well developed, well nourished patient who is awake, alert, jmm and in no acute distress. Head/Face: atraumatic. Eyes: EOMI, no conjunctival erythema appreciated ENT: Moist Mucus Membranes Neck: Trachea midline, Supple Chest/axilla: Normal chest wall appearance and motion. Cardiovascular: Regular rate and rhythm. No edema appreciated Respiratory: Normal respirations, no respiratory distress appreciated 13:00 Back: Normal ROM Skin: General appearance color normal MS/ Extremity: Moves all extremities, no obvious deformities appreciated, no edema noted to the lower extremities Neuro: Awake and alert, normal gait Psych: Behavior is normal, Mood is normal, Patient is cooperative and pleasant 13:00 Abdomen/GI: Inspection: abdomen appears normal, Bowel sounds: normal, Palpation: soft, mild abdominal tenderness, in the epigastric area, right upper quadrant and left upper quadrant. Vital Signs: 12:36 BP 169 / 62; Pulse 64; Resp 17 S; Temp 97.2(TE); Pulse Ox 100% on R/A; Weight 98.88 kg jg9 (R); Height 5 ft. 2 in. (157.48 cm) (R); 14:40 BP 113 / 41; Pulse 63; Resp 17; Pulse Ox 100% on R/A; tw2 15:58 BP 122 / 50; Pulse 65; Resp 17; Pulse Ox 96% on R/A; tw2 12:36 Body Mass Index 39.87 (98.88 kg, 157.48 cm) jg9 MDM: 12:59 Patient medically screened. [facility] 15:25 Data reviewed: vital signs, nurses notes. Counseling: I had a detailed discussion with paris the patient and/or guardian regarding: the historical points, exam findings, and any diagnostic results supporting the discharge/admit diagnosis, lab results, radiology results, the need for outpatient follow up, to return to the emergency department if symptoms worsen or persist or if there are any questions or concerns that arise at home. ED course: Patient states that she has had gastritis in the past. States the symptoms are worse than previous episodes. Patient also had some concern she may have had pancreatitis. Labs are unremarkable, CT a of the chest and CT abdomen pelvis with contrast were negative for an acute process. I did discuss the abnormal findings with the patient. Patient will follow-up for those. Patient given GI cocktail which did provide some relief. I did advise the patient of the need to follow with GI and will prescribe Carafate to help with the discomfort. Patient was otherwise given strict return precautions. Patient understood and agreed to plan of care.. 06/05 13:00 Order name: Basic Metabolic Panel; Complete Time: 13:32 [facility] 06/05 13:00 Order name: CBC with Diff; Complete Time: 13:25 [facility] 06/05 13:00 Order name: LFT's; Complete Time: 13: [facility] 06/05 13:00 Order name: Magnesium; Complete Time: 13: [facility] 06/05 13:00 Order name: NT PRO-BNP; Complete Time: 13:32 [facility] 06/05 13:00 Order name: PT-INR; Complete Time: 13:47 [facility] 06/05 13:00 Order name: Troponin (emerg Dept Use Only); Complete Time: : [facility] 06/05 13:00 Order name: XRAY Chest (1 view); Complete Time: 14:06 [facility] 06/05 13:00 Order name: EKG; Complete Time: 13: [facility] 06/05 13:00 Order name: Cardiac monitoring; Complete Time: 13:03 [facility] 06/05 13:00 Order name: Lipase; Complete Time: 13: [facility] 06/05 13:48 Order name: CT Chest For PE Angio; Complete Time: 14:40 [facility] 06/05 13:48 Order name: CT Abd/Pelvis - IV Contrast Only; Complete Time: 14:56 [facility] 06/05 13:00 Order name: EKG - Nurse/Tech; Complete Time: 13:03 [facility] 06/05 13:00 Order name: IV Saline Lock; Complete Time: 13: [facility] 06/05 13:00 Order name: Labs collected and sent; Complete Time: 13: [facility] 06/05 13:00 Order name: O2 Per Protocol; Complete Time: 13: [facility] 06/05 13:00 Order name: O2 Sat Monitoring; Complete Time: 13: [facility] 06/05 13:17 Order name: Labs - recollect needed: please recollect blue top/ short; Complete Time: eb 15:12 Administered Medications: 15:30 Drug: GI Cocktail without - (Maalox Suspension 30 ml, Lidocaine Liquid 2 % 15 tw2 ml) Route: PO; 15:58 Follow up: Response: No adverse reaction tw2 Disposition Summary: 06/05/21 15:27 Discharge Ordered Location: Home [facility] Condition: Stable jmm Diagnosis - Upper abdominal pain, unspecified jmm Followup: [facility] - With: Private Physician - When: 2 - 3 days - Reason: Recheck today's complaints, Continuance of care, Re-evaluation by your physician Discharge Instructions: - Discharge Summary Sheet [facility] - Abdominal Pain, Adult [facility] Forms: - Medication Reconciliation Form [facility] - Thank You Letter [facility] - Antibiotic Education [facility] - Prescription Opioid Use [facility] Prescriptions: - Carafate 1 gram Oral Tablet - take 1 tablet by ORAL route 4 times per day take on an empty stomach, beginning jmm on waking and last dose at bedtime; 100 tablet; Refills: 0, Product Selection Permitted Signatures: Dispatcher [employer] Jax Aranda PA PA jmm Wise, Tara, RN RN tw2 Karolina Koenig Jennifer, RN RN jg9 Corrections: (The following items were deleted from the chart) 15:01 13:00 This is a 71 year old female with a history of DM. [facility]
[2021-06-05] MEDS ORDERED: MAGNES/ALUMIN/SIMET 30ML UCUP ONE (15:30)
[2021-06-05] MEDS ORDERED: LIDOCAINE VISCOUS 2% SOLN 15 ML UDC ONE (15:30)
[2021-06-05 16:06] VITALS: TEMP 97.2
[2021-06-05 16:11] VITALS: BP 122/50; O2SAT 96
== END 2021-06-05 15:59 | disposition home or self-care (01) ==
LOC: ER 12:28
DX: R10.13 Epigastric pain (principal); I10 Essential (primary) hypertension; Z88.1 Allergy status to other antibiotic agents; Z88.2 Allergy status to sulfonamides; Z88.8 Allergy status to other drugs, medicaments and biological substances
CPT/HCPCS: 93005; 85025; 80048; 36415; 83735; 85610; 80076; 84484; 83690; 83880; 71275; 74177; 71045; 99284; Q9967

== ENCOUNTER → 2023-08-11 | Emergency (ER) | payer OTHER ==
[~2023-08-11] MED LIST: FENTANYL CITR 100 MCG/2 ML ONE; NA CHLORIDE 0.9% 500 ML ONE; ONDANSETRON 4 MG/2 ML VIAL ONE
[2023-08-11 15:02] LABS: Absolute Basophils 0.1 K/uL (0-0.5); Absolute Eosinophils 0.1 K/uL (0-0.5); Absolute Lymphocytes (CBC) 2.1 K/uL (0.7-4.9); Absolute Monocytes 1.2 K/uL (0.1-1.3); Absolute Neutrophil 11.9 K/uL (1.8-8.0); Basophils % 0.7 % (0-1.3); Eosinophils % 0.6 % (0-4.4); Hematocrit 35.4 % (36.0-45.0); Hemoglobin 11.4 g/dL (12.0-15.0); Lymphocytes % 13.4 % (15.3-44.8); MCH 25.3 pg (27.0-35.0); MCHC 32.1 g/dL (32.0-36.0); MCV 78.6 fL (80-100); MPV 7.1 fL (7.6-11.3); Monocytes % 7.7 % (3.3-12.3); Neutrophils % 77.6 % (41.7-73.7); Nucleated Red Blood Cells % 0.1 % (0-0); Platelets 360 thou/uL (152-406); Red Cell Distribution Width 16.4 % (12.1-15.2)
[2023-08-11 15:18] LABS: Albumin 3.2 g/dL (3.4-5.0); Albumin/Globulin Ratio 0.8 (1.1-1.8); Anion Gap 10.1 mEq/L (5.0-15.0); Bilirubin Total 0.9 mg/dL (0.2-1.0); Globulin 4.2 g/dL (2.3-3.5); Potassium 4.1 mEq/L (3.5-5.1); Protein, Total 7.4 g/dL (6.4-8.2)
[2023-08-11 15:45] LABS: Specific Gravity 1.015 (1.005-1.030); Sqamous Epithelial <5 /HPF (None Seen); Urine Bacteria <20 /HPF (<20); Urine Bilirubin NEGATIVE (Negative); Urine Blood 2+ (Negative); Urine Clarity Extremely Turbid (Clear); Urine Color Light-Orange (Yellow); Urine Culture Reflex Order REFLEXED; Urine Glucose 4+ (Over) (Negative); Urine Ketones NEGATIVE (Negative); Urine Microscopic Reflex YN ORDER UMIC; Urine Nitrite NEGATIVE (Negative); Urine Protein 1+ (Negative); Urine RBC 21-50 /HPF (None Seen); Urine Urobilinogen Normal (Normal); Urine WBC >50 /HPF (<5); Urine WBC Clump Many /HPF (None Seen)
--- NOTE | 2023-08-11 16:26 | RAD REPORT ---
EXAM DESCRIPTION: CT - Abdomen Pelvis W Contrast - 08/11/2023 3:32 pm CLINICAL HISTORY: ABD PAIN TECHNIQUE: Thin cut axial CT imaging of the abdomen and pelvis was performed following intravenous a dministration of 100 mL Isovue 300. Multiplanar reformats were generated and reviewed. All CT scans are performed using dose optimization technique as appropriate and may include automated exposure control or mA/KV adjustment according to patient size. FINDINGS: No suspicious findings in the lung bases. The liver, spleen, adrenal glands, and pancreas show no suspicious findings. Gallbladder was surgical ly removed Symmetric renal function is seen with no hydronephrosis or suspicious renal mass. 2.1 cm exophytic le ft lower pole renal cyst. No dilated bowel loops or bowel wall thickening. No free air, free fluid or inflammatory stranding. N o suspicious mass or bulky lymphadenopathy. Small fat containing umbilical hernia. Diastasis recti. Status post hysterectomy. Right ovarian multiloculated cystic lesion demonstrates increased in size n ow measuring 6.0 x 4.7 cm in greatest axial dimensions, previously measured 4.3 x 3.8 cm. The urinary bladder is without significant finding. No suspicious bony findings. Right perianal soft tissue swelling, with a a 3.7 x 3.0 collection demonstrating irregular thick wal l enhancement with some septations and adjacent ill-defined fluid. IMPRESSION: Right perianal soft tissue swelling with a marginally enhancing 3.7 cm collection sugges tive of a perianal abscess. Enlarging right adnexal multiloculated cystic lesion now measuring up to 6 cm. Small umbilical hernia containing fat. Status post cholecystectomy.
--- NOTE | 2023-08-11 17:10 | ER ---
Nurse's Notes [facility] Name: Faviola Balderas Age: 73 yrs Sex: Female : 1950 Arrival Date: 08/11/2023 Time: 12:49 Bed 12 Private MD: Diagnosis: Perianal abscess;UTI/ Urinary tract infection, site not specified Presentation: 08/10 13:05 Chief complaint: Patient states: Abdominal pain, not feeling well, nausea, fever, ll1 cloudy urine with burning since Monday. Fever 99-101. Coronavirus screen: Client denies travel out of the [place] in the last 14 days. At this time, the client does not indicate any symptoms associated with coronavirus-19. Ebola Screen: Patient denies travel to an Ebola-affected area in the 21 days before illness onset. Initial Sepsis Screen: Does the patient meet any 2 criteria? No. Patient's initial sepsis screen is negative. Does the patient have a suspected source of infection? No. Patient's initial sepsis screen is negative. Risk Assessment: Do you want to hurt yourself or someone else? Patient reports no desire to harm self or others. Onset of symptoms was August 09, 2023. 13:05 Method Of Arrival: Ambulatory ll1 13:05 Acuity: MORIAH 3 ll1 Triage Assessment: 13:02 General: Appears uncomfortable, Behavior is calm, cooperative, appropriate for age, ll1 Reports fever for feeling ill for fatigue for. GI: Reports lower abdominal pain, nausea. : Reports burning with urination. Historical: - Allergies: 13:01 Bactrim; ll1 13:01 Macrobid; ll1 13:01 NITROFURAN DERIVATIVES; ll1 13:01 Sulfa (Sulfonamide Antibiotics); ll1 - PMHx: 13:01 Asthma; Dextrocardia; Diabetes - IDDM; glucaoma; Hypertension; Hypothyroidism; ll1 tahlassemia; - PSHx: 13:01 bladder suspension; Cholecystectomy; hysterectomy; Thyroidectomy; done by radiation ll1 capsule; Tonsillectomy; - Immunization history:: Adult Immunizations up to date. - Social history:: Smoking status: Patient denies any tobacco usage or history of. Screenin:24 [facility] ED Fall Risk Assessment (Adult) History of falling in the last 3 months, tl4 including since admission No falls in past 3 months (0 pts) Confusion or Disorientation No (0 pts) Intoxicated or Sedated No (0 pts) Impaired Gait No (0 pts) Mobility Assist Device Used No (0 pt) Altered Elimination No (0 pt) Score/Fall Risk Level 0 - 2 = Low Risk Oriented to surroundings, Maintained a safe environment, Educated pt \T\ family on fall prevention, incl call for assistance when getting out of bed, Assessed \T\ reinforced patient's understanding of fall precautions, Hourly rounding (assess needs \T\ fall precautionary measures) done, Used ambulatory aids as needed (educated on \T\ assisted with), Used gait belt as appropriate. Abuse screen: Denies threats or abuse. Denies injuries from another. Nutritional screening: No deficits noted. Tuberculosis screening: No symptoms or risk factors identified. Assessment: 15:00 General: Appears uncomfortable, Behavior is calm, cooperative. Pain: Complains of pain tl4 in abdomen. Neuro: No deficits noted. Level of Consciousness is awake, alert, obeys commands, Oriented to person, place, time, situation, Speech is normal, Facial symmetry appears normal. Cardiovascular: No deficits noted. Capillary refill < 3 seconds Patient's skin is warm and dry. Respiratory: No deficits noted. Breath sounds are clear bilaterally. Denies cough, shortness of breath labored breathing. GI: Abdomen is non-distended, Bowel sounds present X 4 quads. Abd is soft X 4 quads Abdomen is tender to palpation X 4 quads. : Urine is cloudy, Reports urgency, urinary frequency. EENT: No deficits noted. No signs and/or symptoms were reported regarding the EENT system. Derm: No deficits noted. No signs and/or symptoms reported regarding the dermatologic system. 17:15 Reassessment: Patient and/or family updated on plan of care and expected duration. Pain ll1 level reassessed. Patient is alert, oriented x 3, equal unlabored respirations, skin warm/dry/pink. Patient states feeling better. Vital Signs: 13:05 BP 111 / 52; Pulse 66; Resp 17; Temp 97.5; Pulse Ox 99% ; ll1 15:12 BP 137 / 98; Pulse 69; Resp 18; Pulse Ox 98% on R/A; Pain 8/10; tl4 17:20 BP 129 / 88; Pulse 71; Resp 16; Temp 98.1(TE); Pulse Ox 99% on R/A; Pain 0/10; ll1 15:12 Pain Scale: Adult tl4 17:20 Pain Scale: Adult ll1 Vitals: 15:12 Cardiac Rhythm Assessment Regular. tl4 [employer] Coma Score: 15:12 Eye Response: spontaneous(4). Motor Response: obeys commands(6). Verbal Response: tl4 oriented(5). Total: 15. ED Course: 12:52 Patient arrived in ED. im 12:56 Mary Strong FNP-C is PHCP. kb 12:56 Ney Hollins MD is Attending Physician. kb 13:02 Arm band placed on. ll1 13:07 Triage completed. ll1 14:11 Patient placed in an exam room, on a stretcher. ll1 14:25 Leonidas Andersen, RN is Primary Nurse. tl4 15:10 CMP Sent. tl4 15:10 Lipase Sent. tl4 15:10 Urinalysis w/ reflexes Sent. tl4 15:10 Inserted saline lock: 22 gauge in right antecubital area, using aseptic technique. tl4 Blood collected. 15:30 Warm blanket given. tl4 15:34 CT Abd/Pelvis - IV Contrast Only In Process Unspecified. EDMS 16:21 No provider procedures requiring assistance completed. tl4 16:24 Patient has correct armband on for positive identification. Placed in gown. Bed in low tl4 position. Call light in reach. Side rails up X2. Adult w/ patient. Provided Education on: ed process. Client placed on continuous cardiac and pulse oximetry monitoring. NIBP monitoring applied. Door closed. Noise minimized. Lights dimmed. Moved to private room. Warm blanket given. 16:57 Urine Culture Sent. tl4 17:10 Brendan Corbin MD is Referral Physician. kb 17:26 IV discontinued, intact, bleeding controlled, No redness/swelling at site. Pressure ll1 dressing applied. Administered Medications: 15:10 Drug: NS 0.9% IV 500 ml IV at bolus once Route: IV; Rate: bolus; Site: right tl4 antecubital; Delivery: Primary tubing; 16:21 Follow up: Response: No adverse reaction; IV Status: Completed infusion; IV Intake: tl4 500ml 15:10 Drug: Ondansetron IVP 4 mg IVP once; over 2 minutes Route: IVP; Infused Over: 2 mins; tl4 Site: right antecubital; 16:20 Follow up: Response: No adverse reaction; Nausea is decreased tl4 15:10 Drug: fentaNYL (PF) IVP 25 mcg IVP once Route: IVP; Infused Over: 2 mins; Site: right tl4 antecubital; 16:20 Follow up: Response: No adverse reaction; Pain is decreased tl4 17:45 Not Given (Pt left ED before med was givenn): amoxicillin-[id number] mg PO once ll1 Medication: 16:24 VIS not applicable for this client. tl4 Intake: 16:21 IV: 500ml; Total: 500ml. tl4 Outcome: 17:10 Discharge ordered by . zahraa 17:25 Discharged to home ambulatory, with family, ll1 17:25 Condition: stable 17:25 Discharge instructions given to patient, family, Instructed on discharge instructions, follow up and referral plans. medication usage, Demonstrated understanding of instructions, follow-up care, medications, Prescriptions given X 1, 17:47 Patient left the ED. ll1 Signatures: Dispatcher [employer] EDDE Mary Strong, TRUSS PULLER HELPER-C Isaac Lin RN RN ll1 Judith Mccracken Toni RN RN tl4
--- NOTE | 2023-08-11 17:11 | EDPHYS ---
Physician Documentation [facility] Name: Faviola Balderas Age: 73 yrs Sex: Female : 1950 Arrival Date: 08/11/2023 Time: 12:49 Bed 12 Private MD: ED Physician Ney Hollins HPI: 08/10 13:46 This 73 yrs old Female presents to ER via Ambulatory with complaints of Abdominal Pain, kb Fever, Pain With Urination. 13:46 Patient is a 73-year-old female who presents for upper abdominal pain with nausea that kb started a week ago and has gotten worse over the last couple of days. Also reports fever up to 101, dysuria, cloudy and foul-smelling urine for 3 days. States she has had some diarrhea but that is normal for her.. Historical: - Allergies: 13:01 Bactrim; ll1 13:01 Macrobid; ll1 13:01 NITROFURAN DERIVATIVES; ll1 13:01 Sulfa (Sulfonamide Antibiotics); ll1 - PMHx: 13:01 Asthma; Dextrocardia; Diabetes - IDDM; glucaoma; Hypertension; Hypothyroidism; ll1 tahlassemia; - PSHx: 13:01 bladder suspension; Cholecystectomy; hysterectomy; Thyroidectomy; done by radiation ll1 capsule; Tonsillectomy; - Immunization history:: Adult Immunizations up to date. - Social history:: Smoking status: Patient denies any tobacco usage or history of. ROS: 13:45 Constitutional: As per HPI kb Exam: 13:45 Constitutional: This is a well developed, well nourished patient who is awake, alert, kb and in no acute distress. Head/Face: Normocephalic, atraumatic. ENT: Moist Mucous membranes Cardiovascular: Regular rate Respiratory: Respirations even and unlabored. No increased work of breathing. Talking in full sentences Abdomen/GI: Soft, non-tender. No distention Skin: Warm, dry with normal turgor. Normal color. MS/ Extremity: Pulses equal, no cyanosis. Neurovascular intact. Full, normal range of motion. Neuro: Awake and alert, GCS 15, oriented to person, place, time, and situation. Moves all extremities. Normal gait. 17:09 Abdomen/GI: Rectal exam: mass, that is small, without tenderness, kb Vital Signs: 13:05 BP 111 / 52; Pulse 66; Resp 17; Temp 97.5; Pulse Ox 99% ; ll1 15:12 BP 137 / 98; Pulse 69; Resp 18; Pulse Ox 98% on R/A; Pain 8/10; tl4 17:20 BP 129 / 88; Pulse 71; Resp 16; Temp 98.1(TE); Pulse Ox 99% on R/A; Pain 0/10; ll1 15:12 Pain Scale: Adult tl4 17:20 Pain Scale: Adult ll1 Willy Coma Score: 15:12 Eye Response: spontaneous(4). Motor Response: obeys commands(6). Verbal Response: tl4 oriented(5). Total: 15. MDM: 12:56 Patient medically screened. kb 13:45 Differential diagnosis: gastritis, non-specific abd pain, pancreatitis, Pyelonephritis, kb urinary tract infection. Data reviewed: vital signs, nurses notes. 17:04 Consideration of Admission/Observation Escalation of care including kb admission/observation considered. admission considered for perianal abscess. Pt states she does not want to stay in the hospital, states she will follow up with general surgery on outpatient basis. I offered to contact the surgeon personal lines advisor to discuss case, but pt prefers to follow up on her own. Pt denies pain to rectal area. . Counseling: I had a detailed discussion with the patient and/or guardian regarding the historical points, exam findings, and any diagnostic results supporting the discharge/admit diagnosis, lab results, radiology results, the need for further work-up and treatment in the hospital. Refusal of service: The patient/guardian displays adequate decision making capability and despite a detailed discussion of alternatives, benefits, risks, and consequences refuses: Admission to the hospital for further work-up and treatment. ED course: I discussed contacting surgeon for consult multiple times. Pt prefers to follow up outpatient and go home at this time. Discussed risks of leaving without treatment/intervention for abscess. Verbal understanding received. . ED course: Patient has decided to leave our facility AGAINST MEDICAL ADVICE. I have assessed the patient's ability to make an informed decision and it is my opinion at this time that the patient has the medical decision-making capacity to comprehend information regarding current medical condition and appreciates the impact of the disease or condition and the consequences of various options for treatment, including foregoing treatment. The patient possesses the ability to evaluate all treatment options, compare the risk and benefits of each option, communicate choice and is able to make rational choices. I have explained to the patient further testing, treatment, and evaluation I would like to perform during the current emergency department visit as well as any possible alternatives that could be accomplished in a timely manner. I have outlined the possible risk of foregoing any or all of these interventions and the patient understands and acknowledges that the decision to leave may result in undesirable consequences such as , permanent disability, and/or loss of current lifestyle. Even though leaving AMA a is not ideal, I have instructed the patient to follow any discharge instructions given, take any medications prescribed and resume care as soon as possible with another provider. Additionally, I have clearly stated that the patient is welcome to return at any time to continue care at our facility.. 08/10 13:09 Order name: CBC with Diff; Complete Time: 15:03 kb 08/10 13:09 Order name: CMP; Complete Time: 15:18 kb 08/10 13:09 Order name: Lipase; Complete Time: 15:18 kb 08/10 13:09 Order name: Urinalysis w/ reflexes; Complete Time: 15:55 kb 08/10 15:52 Order name: Urine Culture EDMS 08/10 13:09 Order name: CT Abd/Pelvis - IV Contrast Only; Complete Time: 16:34 kb 08/10 13:09 Order name: IV Saline Lock; Complete Time: 15:10 kb 08/10 13:09 Order name: Labs collected and sent; Complete Time: 15:10 kb 08/10 16:36 Order name: Cardiac monitoring; Complete Time: 16:57 kb Administered Medications: 15:10 Drug: NS 0.9% IV 500 ml IV at bolus once Route: IV; Rate: bolus; Site: right tl4 antecubital; Delivery: Primary tubing; 16:21 Follow up: Response: No adverse reaction; IV Status: Completed infusion; IV Intake: tl4 500ml 15:10 Drug: Ondansetron IVP 4 mg IVP once; over 2 minutes Route: IVP; Infused Over: 2 mins; tl4 Site: right antecubital; 16:20 Follow up: Response: No adverse reaction; Nausea is decreased tl4 15:10 Drug: fentaNYL (PF) IVP 25 mcg IVP once Route: IVP; Infused Over: 2 mins; Site: right tl4 antecubital; 16:20 Follow up: Response: No adverse reaction; Pain is decreased tl4 17:45 Not Given (Pt left ED before med was givenn): amoxicillin-[id number] mg PO once ll1 Disposition Summary: 08/11/23 17:10 Discharge Ordered Notes: Location: Home kb Condition: Stable kb Diagnosis - Perianal abscess kb - UTI/ Urinary tract infection, site not specified kb Followup: kb - With: Private Physician - When: 2 - 3 days - Reason: Recheck today's complaints, Continuance of care, Re-evaluation by your physician Followup: kb - With: Emergency Department - When: As needed - Reason: Worsening of condition Followup: kb - With: Brendan Corbin MD - When: 1 - 2 days - Reason: Recheck today's complaints Discharge Instructions: - Discharge Summary Sheet kb - Anorectal Abscess kb - Urinary Tract Infection, Adult, [id number] kb Forms: - Medication Reconciliation Form kb - Thank You Letter kb - Antibiotic Education kb - Prescription Opioid Use kb - Patient Portal Instructions kb - Leadership Thank You Letter kb Prescriptions: - Augmentin 875-125 mg Oral Tablet - take 1 tablet ORAL route every 12 hours for 10 days; 20 tablet; Refills: 0, kb Product Selection Permitted Addendum: 08/14/2023 09:40 I was immediately available for consultation during this patient's visit. I did not e c2 personally see the patient or discuss the patient with the KAYLA. . Signatures: Dispatcher [employer] Mary Shaw, BASEBALL PLAYER-C BASEBALL PLAYER-Isaac Pressley, RN RN ll1 Ney Hollins MD MD ec2 Leonidas Andersen RN RN tl4 Corrections: (The following items were deleted from the chart) 08/10 17:45 16:36 EKG - Nurse/Tech ordered. kb ll1
[2023-08-11 18:59] VITALS: BP 129/88; TEMP 98.1; O2SAT 99
== END ==
LOC: ER 12:49
DX: N39.0 Urinary tract infection, site not specified (principal); K61.0 Anal abscess; Z88.1 Allergy status to other antibiotic agents; Z88.2 Allergy status to sulfonamides; Z88.8 Allergy status to other drugs, medicaments and biological substances
CPT/HCPCS: 96361; 87088; 85025; 81001; 87086; 36415; 87077; 87186; 83690; 80053; 74177; 96375; 96374; 99284; Q9967; J3010; J2405; J7040

== ENCOUNTER 2023-08-13 10:59 | Inpatient (IN) | payer OTHER ==
[2023-08-13] MEDS ORDERED: NA CHLORIDE 0.9% 1,000 ML ONE ×2 (11:27→19:25)
[2023-08-13] MEDS ORDERED: ONDANSETRON 4 MG/2 ML VIAL ONE (11:27)
[2023-08-13] MEDS ORDERED: FAMOTIDINE 20 MG/2 ML VIAL IV ONE (11:27)
[2023-08-13 12:13] LABS: Absolute Basophils 0.1 K/uL (0-0.5); Absolute Eosinophils 0.1 K/uL (0-0.5); Absolute Monocytes 1.1 K/uL (0.1-1.3); Absolute Neutrophil 10.2 K/uL (1.8-8.0); Basophils % 0.5 % (0-1.3); Eosinophils % 0.6 % (0-4.4); Hemoglobin 10.1 g/dL (12.0-15.0); Lymphocytes % 8.2 % (15.3-44.8); MCH 25.7 pg (27.0-35.0); MCHC 32.8 g/dL (32.0-36.0); MCV 78.4 fL (80-100); MPV 7.3 fL (7.6-11.3); Monocytes % 8.5 % (3.3-12.3); Neutrophils % 82.2 % (41.7-73.7); Platelets 333 thou/uL (152-406); RBC Red Blood Cell Count 3.95 M/uL (3.86-4.86); Red Cell Distribution Width 16.5 % (12.1-15.2)
[2023-08-13 12:16] LABS: PT Prothrombin Time 11.9 SECONDS (9.5-12.5); PTT, Activated Partial Thromb 30.5 SECONDS (24.3-36.9); Protime INR 1.08
[2023-08-13 12:26] LABS: Albumin 2.8 g/dL (3.4-5.0); Albumin/Globulin Ratio 0.7 (1.1-1.8); Anion Gap 13.3 mEq/L (5.0-15.0); Bilirubin Total 0.4 mg/dL (0.2-1.0); Globulin 3.8 g/dL (2.3-3.5); Potassium 4.3 mEq/L (3.5-5.1); Protein, Total 6.6 g/dL (6.4-8.2)
[2023-08-13 13:11] LABS: Specific Gravity 1.007 (1.005-1.030); Sqamous Epithelial <5 /HPF (None Seen); Urine Bacteria None Seen /HPF (<20); Urine Bilirubin NEGATIVE (Negative); Urine Blood Negative (Negative); Urine Clarity Clear (Clear); Urine Color Colorless (Yellow); Urine Culture Reflex Order NOT NEEDED; Urine Glucose 4+ (Over) (Negative); Urine Ketones NEGATIVE (Negative); Urine Micro Reflex YN NO BILL MICROSCOPIC; Urine Nitrite NEGATIVE (Negative); Urine Protein NEGATIVE (Negative); Urine RBC <5 /HPF (None Seen); Urine Urobilinogen Normal (Normal); Urine pH 6.5 (5.0-7.0)
--- NOTE | 2023-08-13 13:26 | ER ---
Nurse's Notes [facility] Name: Faviola Balderas Age: 73 yrs Sex: Female : 1950 Arrival Date: 08/13/2023 Time: 10:59 Bed 15 Private MD: Diagnosis: perianal abcess Presentation: 08/12 11:14 Chief complaint: Patient states: seen here Monday for perianal abscess. Pt states "I am aa5 here for the same thing on Monday and I am very nauseated". Denies vomiting. 11:14 Coronavirus screen: At this time, the client does not indicate any symptoms associated aa5 with coronavirus-19. Ebola Screen: Patient denies travel to an Ebola-affected area in the 21 days before illness onset. Initial Sepsis Screen: Does the patient meet any 2 criteria? No. Patient's initial sepsis screen is negative. Does the patient have a suspected source of infection? No. Patient's initial sepsis screen is negative. Risk Assessment: Do you want to hurt yourself or someone else? Patient reports no desire to harm self or others. Onset of symptoms was July 2023. 11:14 Method Of Arrival: Ambulatory aa5 11:14 Acuity: MORIAH 3 aa5 Historical: - Allergies: 11:19 Bactrim; aa5 11:19 Macrobid; aa5 11:19 NITROFURAN DERIVATIVES; aa5 11:19 Sulfa (Sulfonamide Antibiotics); aa5 - PMHx: 11:19 Asthma; Dextrocardia; Diabetes - IDDM; glucaoma; Hypertension; Hypothyroidism; aa5 tahlassemia; - PSHx: 11:19 bladder suspension; Cholecystectomy; hysterectomy; Thyroidectomy; done by radiation aa5 capsule; Tonsillectomy; - Immunization history:: Adult Immunizations unknown. - Social history:: Smoking status: Patient denies any tobacco usage or history of. Screenin:06 [facility] ED Fall Risk Assessment (Adult) History of falling in the last 3 months, hb including since admission No falls in past 3 months (0 pts) Confusion or Disorientation No (0 pts) Intoxicated or Sedated No (0 pts) Impaired Gait No (0 pts) Mobility Assist Device Used No (0 pt) Altered Elimination No (0 pt) Score/Fall Risk Level 0 - 2 = Low Risk Oriented to surroundings, Maintained a safe environment, Educated pt \\T\\ family on fall prevention, incl call for assistance when getting out of bed, Assessed \\T\\ reinforced patient's understanding of fall precautions. Abuse screen: Denies threats or abuse. Denies injuries from another. Nutritional screening: No deficits noted. Tuberculosis screening: No symptoms or risk factors identified. Assessment: 12:05 General: Appears in no apparent distress. Behavior is calm, cooperative. Pain: Pain hb currently is 5 out of 10 on a pain scale. Neuro: Level of Consciousness is awake, alert, obeys commands, Oriented to person, place, time, situation. Cardiovascular: Patient's skin is warm and dry. Rhythm is regular. Respiratory: Respiratory effort is even, unlabored, Respiratory pattern is regular, symmetrical. GI: Reports upper abdominal pain, nausea. : Reports dysuria. EENT: No signs and/or symptoms were reported regarding the EENT system. Derm: Skin is pink, warm \\T\\ dry. Musculoskeletal: No signs and/or symptoms reported regarding the musculoskeletal system. 12:10 General: Appears in no apparent distress. Behavior is calm, cooperative. Pain: Denies me1 pain. Neuro: Level of Consciousness is awake, alert, obeys commands, Oriented to person, place, time, situation, Appropriate for age. Cardiovascular: Patient's skin is warm and dry. Respiratory: Airway is patent Respiratory effort is even, unlabored, Respiratory pattern is regular, symmetrical. GI: Reports nausea. : Reports on abx for uti. EENT: No signs and/or symptoms were reported regarding the EENT system. Derm: Skin is intact, is healthy with good turgor, Skin is Skin is pink, warm \\T\\ dry. Musculoskeletal: No signs and/or symptoms reported regarding the musculoskeletal system. 13:00 Reassessment: No changes from previously documented assessment. Patient is alert, me1 oriented x 3, equal unlabored respirations, skin warm/dry/pink. 14:00 Reassessment: No changes from previously documented assessment. Patient is alert, me1 oriented x 3, equal unlabored respirations, skin warm/dry/pink. 15:00 Reassessment: No changes from previously documented assessment. Patient is alert, me1 oriented x 3, equal unlabored respirations, skin warm/dry/pink. 16:00 Reassessment: Patient appears in no apparent distress at this time. Patient and/or me1 family updated on plan of care and expected duration. Pain level reassessed. Patient is alert, oriented x 3, equal unlabored respirations, skin warm/dry/pink. 17:00 Reassessment: Patient appears in no apparent distress at this time. Patient and/or me1 family updated on plan of care and expected duration. Pain level reassessed. Patient is alert, oriented x 3, equal unlabored respirations, skin warm/dry/pink. Vital Signs: 11:14 BP 127 / 39; Pulse 67; Resp 20 S; Temp 99.3(O); Pulse Ox 97% on R/A; Weight 96.62 kg aa5 (R); Height 5 ft. 2 in. (R); 12:00 BP 149 / 55; Pulse 65; Resp 17; Pulse Ox 97% on R/A; me1 13:00 BP 136 / 47; Pulse 63; Resp 20; Pulse Ox 97% on R/A; me1 14:00 BP 129 / 45; Pulse 64; Resp 19; Pulse Ox 97% on R/A; me1 15:00 BP 136 / 68; Pulse 65; Resp 19; Pulse Ox 98% on R/A; me1 16:00 BP 142 / 45; Pulse 64; Resp 20; Pulse Ox 97% on R/A; me1 17:00 BP 137 / 45; Pulse 68; Resp 22; Pulse Ox 95% on R/A; me1 18:00 BP 137 / 35; Pulse 67; Resp 20; Pulse Ox 93% on R/A; me1 19:00 BP 132 / 41; Pulse 68; Resp 19; Pulse Ox 96% on R/A; me1 11:14 Body Mass Index 38.96 (96.62 kg, 157.48 cm) aa5 ED Course: 11:02 Patient arrived in ED. mg5 11:02 Melissa Boucher PA-C is PHCP. sb4 11:02 Shakir Castellano MD is Attending Physician. sb4 11:14 Lucina Jose, LAURYN is Primary Nurse. hb 11:14 Arm band placed on Patient placed in an exam room, on a stretcher. aa5 11:19 Triage completed. aa5 11:41 First set of blood cultures drawn by me. hb 11:46 Missed attempt(s): 22 gauge in right forearm. Bleeding controlled, band aid applied, hb catheter tip intact. 11:58 Initial lab(s) drawn, by me, sent to lab. Second set of blood cultures drawn by me. hb Inserted saline lock: 22 gauge in right antecubital area, using aseptic technique. Blood collected. 12:04 Patient has correct armband on for positive identification. Placed in gown. Bed in low hb position. Call light in reach. Side rails up X 1. Provided Education on: medications, tests, result times. Client placed on continuous cardiac and pulse oximetry monitoring. NIBP monitoring applied. telemetry monitor on. Pulse ox on. NIBP on. 12:05 Patient maintains SpO2 saturation greater than 95% on room air. hb 12:07 Blood Culture Adult (2) Sent. hb 12:07 CBC with Diff Sent. hb 12:08 CMP Sent. hb 12:08 Lactate w/ 2H reflex if indic. Sent. hb 12:08 Protime (+inr) Sent. hb 12:08 Ptt, Activated Sent. hb 12:12 EKG done, by ED staff, reviewed by Melissa Boucher PA-C. me1 13:25 Grant Cox MD is Hospitalizing Provider. sb4 20:44 No provider procedures requiring assistance completed. Patient admitted, IV remains in me1 place. Administered Medications: 11:58 Drug: NS 0.9% IV 1000 ml IV at 1 bolus Per protocol; 1000 mL bolus Route: IV; Rate: 1 hb bolus; Site: right antecubital; 13:54 Follow up: Response: No adverse reaction; IV Status: Completed infusion; IV Intake: me1 1000ml 15:33 Follow up: Response: No adverse reaction; IV Status: Completed infusion; IV Intake: me1 1000ml 11:58 Drug: Famotidine IVP 20 mg IVP once; dilute with 10 mL 0.9% NaCl; give over 2 minutes hb Route: IVP; Site: right antecubital; 13:16 Follow up: Response: No adverse reaction me1 11:58 Drug: Ondansetron IVP 4 mg IVP once; over 2 minutes Route: IVP; Site: right antecubital;hb 13:16 Follow up: Response: No adverse reaction; Nausea is decreased me1 14:27 Drug: Piperacillin-Tazobactam IVPB 3.375 grams IVPB once over 60 mins; (mix in NS 100 me1 mL) Route: IVPB; Infused Over: 60 mins; Site: right antecubital; 15:33 Follow up: Response: No adverse reaction; IV Status: Completed infusion; IV Intake: me1 100ml Medication: 12:10 VIS not applicable for this client. me1 Intake: 13:54 IV: 1000ml; Total: 1000ml. me1 15:33 IV: 100ml; Total: 1100ml. me1 15:33 IV: 1000ml; Total: 2100ml. me1 Outcome: 13:25 Decision to Hospitalize by Provider. sb4 20:42 Patient left the ED. jb4 20:44 Admitted to oh1 20:44 Admitted to Tele accompanied by tech, via wheelchair, room 408, with chart, Report me1 called to faxed report, confirmed receipt with Brenda. 20:44 Condition: stable 20:44 Instructed on the need for admit, Signatures: Mckenna Hernandez RN RN aa5 Lucina Jose RN RN Edward Hickey RN RN jb4 Melissa Boucher, PA-C PA-C sb4 Belkys Artis RN RN me1 Emeli Lennon mg5 Corrections: (The following items were deleted from the chart) 20:44 16:00 BP 137 / 45; Pulse 68bpm; Resp 22bpm; Pulse Ox 95% RA; me1 me1
--- NOTE | 2023-08-13 13:26 | EDPHYS ---
Physician Documentation [facility] Name: Faviola Balderas Age: 73 yrs Sex: Female : 1950 Arrival Date: 08/13/2023 Time: 10:59 Bed 15 Private MD: ED Physician Shakir Castellano HPI: 08/12 11:27 This 73 yrs old Female presents to ER via Ambulatory with complaints of Nausea. sb4 11:27 Patient was seen here 2 days ago, diagnosed with perianal abscess and UTI. Her provider sb4 recommended admission for surgical intervention however patient declined and left AMA. She states that she has been taking the Augmentin that she was prescribed but feels worse-feels extremely nauseated, weak, is still running fever. Historical: - Allergies: 11:19 Bactrim; aa5 11:19 Macrobid; aa5 11:19 NITROFURAN DERIVATIVES; aa5 11:19 Sulfa (Sulfonamide Antibiotics); aa5 - PMHx: 11:19 Asthma; Dextrocardia; Diabetes - IDDM; glucaoma; Hypertension; Hypothyroidism; aa5 tahlassemia; - PSHx: 11:19 bladder suspension; Cholecystectomy; hysterectomy; Thyroidectomy; done by radiation aa5 capsule; Tonsillectomy; - Immunization history:: Adult Immunizations unknown. - Social history:: Smoking status: Patient denies any tobacco usage or history of. ROS: 11:27 Cardiovascular: Negative for chest pain, palpitations, and edema, sb4 11:27 Constitutional: Positive for fever, malaise, 11:27 Abdomen/GI: Positive for nausea, 11:27 All other systems are negative, Exam: 11:27 Constitutional: This is a well developed, well nourished patient who is awake, alert, sb4 and in no acute distress. Head/Face: Normocephalic, atraumatic. Eyes: Extra-ocular motions intact. Periorbital areas with no swelling, redness, or edema. ENT: Mucous membranes moist. Cardiovascular: Regular rate and rhythm with a normal S1 and S2. Respiratory: Lungs have equal breath sounds bilaterally, clear to auscultation and percussion. No rales, rhonchi or wheezes noted. No increased work of breathing, no retractions or nasal flaring. Abdomen/GI: Soft, non-tender, no distension. Skin: Warm, dry with normal turgor. Normal color with no rashes, no lesions, and no evidence of cellulitis. MS/ Extremity: Pulses equal, no cyanosis. Neurovascular intact. Full, normal range of motion. Neuro: Awake and alert, GCS 15, oriented to person, place, time, and situation. Motor strength 5/5 in all extremities. Sensory grossly intact. 11:27 Abdomen/GI: Rectal exam: small fluctuance noted under the skin at the 4oclock perianal region. Vital Signs: 11:14 BP 127 / 39; Pulse 67; Resp 20 S; Temp 99.3(O); Pulse Ox 97% on R/A; Weight 96.62 kg aa5 (R); Height 5 ft. 2 in. (R); 12:00 BP 149 / 55; Pulse 65; Resp 17; Pulse Ox 97% on R/A; me1 13:00 BP 136 / 47; Pulse 63; Resp 20; Pulse Ox 97% on R/A; me1 14:00 BP 129 / 45; Pulse 64; Resp 19; Pulse Ox 97% on R/A; me1 15:00 BP 136 / 68; Pulse 65; Resp 19; Pulse Ox 98% on R/A; me1 16:00 BP 142 / 45; Pulse 64; Resp 20; Pulse Ox 97% on R/A; me1 17:00 BP 137 / 45; Pulse 68; Resp 22; Pulse Ox 95% on R/A; me1 18:00 BP 137 / 35; Pulse 67; Resp 20; Pulse Ox 93% on R/A; me1 19:00 BP 132 / 41; Pulse 68; Resp 19; Pulse Ox 96% on R/A; me1 11:14 Body Mass Index 38.96 (96.62 kg, 157.48 cm) aa5 MDM: 11:13 Patient medically screened. sb4 12:46 Data reviewed: vital signs, nurses notes, lab test result(s), EKG. sb4 13:24 Management of patient was discussed with the following: Mechanical Intern: Dr. Corbin, will sb4 take patient to OR tomorrow morning. Counseling: I had a detailed discussion with the patient and/or guardian regarding the historical points, exam findings, and any diagnostic results supporting the discharge/admit diagnosis, lab results, radiology results, the need for further work-up and treatment in the hospital. 13:29 Special discussion: I discussed with the patient the need to follow-up with the [facility] PCP/specialist for the noted incidental finding on X-ray/CT scanning. follow up ovarian cyst with SENIOR MEDIA DIRECTOR. 08/12 11:24 Order name: Blood Culture Adult (2) [facility] 08/12 11:24 Order name: CBC with Diff; Complete Time: 12:15 [facility] 08/12 11:24 Order name: CMP; Complete Time: 12:35 sb 08/12 11:24 Order name: Lactate w/ 2H reflex if indic.; Complete Time: 12:39 [facility] 08/12 11:24 Order name: Protime (+inr); Complete Time: 12:17 sb 08/12 11:24 Order name: Ptt, Activated; Complete Time: 12:17 [facility] 08/12 11:25 Order name: UAM; Complete Time: 13:12 [facility] 08/12 15:15 Order name: Urinalysis w/ reflexes [facility] 08/12 15:15 Order name: CBC with Automated Diff [facility] 08/12 15:15 Order name: CBC with Automated Diff [facility] 08/12 15:15 Order name: Comprehensive Metabolic Panel [facility] 08/12 15:15 Order name: Comprehensive Metabolic Panel [facility] 08/12 15:15 Order name: Magnesium [facility] 08/12 15:15 Order name: Magnesium [facility] 08/12 19:37 Order name: Glucose, Ancillary Testing [facility] 08/12 11:24 Order name: EKG; Complete Time: 11:24 [facility] 08/12 15:15 Order name: CONS Physician Consult [facility] 08/12 11:24 Order name: Accucheck; Complete Time: 12:07 [facility] 08/12 11:24 Order name: Cardiac monitoring; Complete Time: 12:07 [facility] 08/12 11:24 Order name: EKG - Nurse/Tech; Complete Time: 12:07 [facility] 08/12 11:24 Order name: IV Saline Lock - Large Bore; Complete Time: 12:07 [facility] 08/12 11:24 Order name: Labs collected and sent; Complete Time: 12:07 [facility] 08/12 11:24 Order name: O2 Per Protocol; Complete Time: 11:27 [facility] 08/12 11:24 Order name: O2 Sat Monitoring; Complete Time: 11:27 sb 08/12 11:24 Order name: Vital Signs; Complete Time: 12:07 sb4 EC:11 Rate is 68 beats/min. Rhythm is regular, Normal Sinus Rhythm. OK interval is normal at sb4 168 msec. QRS interval is normal at 134 msec. QT interval is normal at 432 msec. Clinical impression: No evidence of ischemia. Interpreted by me. Reviewed by me. Administered Medications: 11:58 Drug: NS 0.9% IV 1000 ml IV at 1 bolus Per protocol; 1000 mL bolus Route: IV; Rate: 1 hb bolus; Site: right antecubital; 13:54 Follow up: Response: No adverse reaction; IV Status: Completed infusion; IV Intake: me1 1000ml 15:33 Follow up: Response: No adverse reaction; IV Status: Completed infusion; IV Intake: me1 1000ml 11:58 Drug: Famotidine IVP 20 mg IVP once; dilute with 10 mL 0.9% NaCl; give over 2 minutes hb Route: IVP; Site: right antecubital; 13:16 Follow up: Response: No adverse reaction me1 11:58 Drug: Ondansetron IVP 4 mg IVP once; over 2 minutes Route: IVP; Site: right antecubital;hb 13:16 Follow up: Response: No adverse reaction; Nausea is decreased me1 14:27 Drug: Piperacillin-Tazobactam IVPB 3.375 grams IVPB once over 60 mins; (mix in NS 100 me1 mL) Route: IVPB; Infused Over: 60 mins; Site: right antecubital; 15:33 Follow up: Response: No adverse reaction; IV Status: Completed infusion; IV Intake: me1 100ml Disposition: 12:06 Co-signature as Attending Physician, Shakir Castellano MD I agree with the assessment and cp3 plan of care. Disposition Summary: 08/13/23 13:25 Hospitalization Ordered Notes: Hospitalization Status: Inpatient Admission sb4 Provider: Grant Cox Condition: Fair sb4 Problem: new sb4 Symptoms: are unchanged sb4 Bed/Room Type: Standard sb4 Location: Telemetry/MedSurg (Inpatient)(08/13/23 19:39) [facility] Room Assignment: [facility](08/13/23 19:39) [facility] Diagnosis - perianal abcess sb4 Forms: - Medication Reconciliation Form sb4 - SBAR form sb4 - Leadership Thank You Letter sb4 Signatures: Dispatcher [employer] Shakir Barnhart MD MD cp3 Mckenna Hernandez RN RN aa5 Lucina Jose, RN RN Melissa Brunson, PAPhuongC PAJesse sb4 Belkys Artis RN RN wa1 Lisa Dodd km Corrections: (The following items were deleted from the chart) 18:56 13:25 Telemetry/MedSurg (Inpatient) sb4 aa5 18:56 13:25 sb4 aa5 19:39 18:56 [facility] ER HOLD aa5 kmf 19:39 18:56 ERHOLD- aa5 kmf
[2023-08-13] MEDS ORDERED: PIPERACIL/TAZO 3.375 GM VIAL IV ONE (14:13)
[2023-08-13] MEDS ORDERED: NA CHLORIDE 0.9% 100 ML ONE (14:13)
[2023-08-13] MEDS ORDERED: ACETAMINOPHEN 500 MG TAB PO PRN (15:04)
[2023-08-13] MEDS ORDERED: SODIUM CHLORIDE 0.9% 10ML INJ IV PRN (15:18)
--- NOTE | 2023-08-13 15:39 | P.HP ---
Certification for Inpatient Patient admitted to: Inpatient With expected LOS: >2 Midnights Patient will require the following post-hospital care: None Practitioner: I am a practitioner with admitting privileges, knowledge of patient current condition, hospital course, and medical plan of care. Services: Services provided to patient in accordance with Admission requirements found in Title 42 Section 412.3 of the Code of Federal Regulations <Jazmin Jones - Last Filed: 08/13/23 18:57> Patient History Date of Service: 08/13/23 Primary Care Provider: Dr. Harris Reason for admission: sepsis, UTI, perianal abscess History of Present Illness: Mrs. Balderas is a 73-year-old female with a past medical history of hypertension, insulin-dependent diabetes, hypothyroidism, frequent UTIs, and asthma who presented to the ER on August 11, 2023 with complaints of dysuria and right perianal pain. She was evaluated at that time and admission was offered however patient declined admission. She was given Augmentin p.o. and went home. She returned to the ER today with 102.9 fever and worsening signs and symptoms. Her laboratory evaluation is actually improved since 3 days ago but on CAT scan she has a right perianal 3.7 x 3.0 cm collection with thick wall enhancement, septation, and adjacent ill-defined fluid. We will admit her to the hospital, keep her n.p.o. after midnight, start Cefepime 500mg q8h, and Dr. Corbin, who was consulted from the emergency department, will take her to the OR tomorrow for treatment of the perianal abscess. Culture and sensitivity results from August 10 are in the computer showing, 4+ gram-negative rods, E. coli susceptible to Merrem. Home medications list reviewed: Yes - Past Medical/Surgical History Diabetic: Yes -: Hypertension -: Diabetes -: Chronic UTI -: asthma -: Ovarian cyst -: Dextrocardia -: Hypothyroidism -: Partial hysterectomy -: Bladder suspension -: Cholecystectomy -: Radiation to thyroid -: Tonsillectomy Psychosocial/ Personal History: Lives at home with her - Family History Family History: Reviewed- Non-Contributory - Social History Smoking Status: Never smoker Alcohol use: No CD- Drugs: No Caffeine use: Yes Place of Residence: Home <Jazmin Jones - Last Filed: 08/13/23 18:57> Date of Service: 08/14/23 <Grant Cox - Last Filed: 08/14/23 09:37> Allergies Sulfa (Sulfonamide Antibiotics) Allergy (Unknown, Verified 08/13/23 22:57) Unknown nitrofurantoin [From Macrobid] Allergy (Verified 08/13/23 22:57) Unknown sulfamethoxazole [From Bactrim] Allergy (Verified 08/13/23 22:57) Unknown trimethoprim [From Bactrim] Allergy (Verified 08/13/23 22:57) Unknown doxycycline Adverse Reaction (Verified 08/14/23 08:24) Nausea/Vomiting Sulfa (Sulfona Allergy (Uncoded 09/10/16 11:01) Unknown Sulfa (Sulfonamid Allergy (Uncoded 08/30/16 04:02) Unknown Review of Systems 10-point ROS is otherwise unremarkable General: Fever, Chills, Malaise Genitourinary: Frequency Integumentary: As per HPI <Jazmin Jones Homero - Last Filed: 08/13/23 18:57> Physical Examination - Physical Exam General: Alert, In no apparent distress, Oriented x3 HEENT: Atraumatic, Normocephalic Neck: Supple, 2+ carotid pulse no bruit Respiratory: Clear to auscultation bilaterally, Normal air movement Cardiovascular: No edema, Normal pulses, Regular rate/rhythm, Systolic murmur (faint) Capillary refill: <2 Seconds Gastrointestinal: Normal bowel sounds, Soft and benign Musculoskeletal: No clubbing, No swelling Integumentary: Other (right perianal tenderness, abscess) Neurological: Normal speech, Normal tone Lymphatics: No axilla or inguinal lymphadenopathy Rectal: Tenderness - Studies Laboratory Data (last 24 hrs) 08/13/23 08/13/23 08/13/23 11:58 11:58 11:58 WBC 12.40 H Hgb 10.1 L Hct 31.0 L Plt Count 333 PT 11.9 INR 1.08 APTT 30.5 Sodium 133 L Potassium 4.3 BUN 23 H Creatinine 1.23 H Glucose 299 H Total Bilirubin 0.4 AST 20 ALT 12 L Alkaline Phosphatase 91 <RobertJazmin Homero - Last Filed: 08/13/23 18:57> - Studies Laboratory Data (last 24 hrs) 08/13/23 08/13/23 08/13/23 11:58 11:58 11:58 WBC 12.40 H Hgb 10.1 L Hct 31.0 L Plt Count 333 PT 11.9 INR 1.08 APTT 30.5 Sodium 133 L Potassium 4.3 BUN 23 H Creatinine 1.23 H Glucose 299 H Total Bilirubin 0.4 AST 20 ALT 12 L Alkaline Phosphatase 91 <Grant Cox - Last Filed: 08/14/23 09:37> Assessment and Plan - Plan Perianal abscess with sepsis Consult Dr. Corbin Merrem 500mg IVPB 1 8h (day one 08/13/23) Urinary tract infection Culture + for 4+ Gram negative rods E. coli Merrem 500mg IVPB q8h (day one 08/13/23) Trend VS and Labs (WBC actually down from 08/11/23 with Augmentin) NS at 100ml/hr Hypertension: trend vs Amlodipine 5 mg po daily Benazepril 40mg po BID Carvedilol 25mg po BID Aspirin 81mg po daily (hold until cleared with Dr. Corbin) Hyperlipidemia: Atorvastatin 10mg po daily NIDDM: FSBS q ac&HS, q6h when NPO SSI per protocol Hypothyroidism: Levothyroxine 200mcg po daily Asthma: O2 per protocol Incentive spirometry Advair Inh BID DVT prophylaxis: SCDs for surgery tomorrow GI prophylaxis: Protonix 40mg SIVP daily Code Status: Full Discharge Plan: Home Plan to discharge in: 72 Hours - Advance Directives Does patient have a Living Will: No Does patient have a Durable POA for Healthcare: No <Jazmin Jones - Last Filed: 08/13/23 18:57> Date of Service: 08/13/23 patient was seen and examined. Agree with findings as mentioned above. <Grant Cox - Last Filed: 08/14/23 09:37>
[2023-08-13] MEDS: NA CHLORIDE 0.9% 1,000 ML IV SCH (16:00)
[2023-08-13] MEDS: SUCRALFATE 1 GM TABLET PO SCH (16:30)
[2023-08-13 16:36] VITALS: BMI 38.9
[2023-08-13] MEDS ORDERED: Meropenem 500 MG in NA CHLORIDE 0.9% 100 ML IV SCH (17:00)
[2023-08-13] MEDS: carvediloL 25 MG TAB PO SCH (18:00)
[2023-08-13] MEDS: INSULIN REGULAR (HUMAN) 100 UNIT/ML SQ SCH (18:00)
[2023-08-13] MEDS ORDERED: SUCRALFATE 1 GM TABLET ONE (19:25)
[2023-08-13] MEDS ORDERED: carvediloL 6.25 MG TAB ONE (19:25)
[2023-08-13] MEDS: DULERA 100/5 (MOMETASONE/FORMOTEROL) INHALER IH SCH (21:00)
[2023-08-13] MEDS: HOME MED [LATANOPROST 0.005% 2.5ML OPTH] OPTH SCH (21:00)
[2023-08-13] MEDS: Meropenem 1,000 MG in NA CHLORIDE 0.9% 100 ML IV SCH (22:49)
[2023-08-13] MEDS: BENAZEPRIL 20 MG TAB PO SCH (22:49)
[2023-08-13] MEDS: ATORVASTATIN 10 MG TAB PO SCH (22:50)
[2023-08-14] MEDS: LEVOTHYROXINE SOD 0.1 MG TAB PO SCH (05:43)
[2023-08-14] MEDS: PANTOPRAZOLE 40MG TABLET PO SCH (07:30)
[2023-08-14 07:35] LABS: Absolute Basophils 0.1 K/uL (0-0.5); Absolute Eosinophils 0.1 K/uL (0-0.5); Absolute Lymphocytes (CBC) 1.5 K/uL (0.7-4.9); Absolute Neutrophil 7.1 K/uL (1.8-8.0); Basophils % 0.6 % (0-1.3); Eosinophils % 0.6 % (0-4.4); Hematocrit 31.4 % (36.0-45.0); Hemoglobin 10.2 g/dL (12.0-15.0); Lymphocytes % 15.3 % (15.3-44.8); MCH 25.7 pg (27.0-35.0); MCHC 32.6 g/dL (32.0-36.0); MCV 78.9 fL (80-100); MPV 7.5 fL (7.6-11.3); Monocytes % 10.3 % (3.3-12.3); Neutrophils % 73.2 % (41.7-73.7); Nucleated Red Blood Cells % 0.1 % (0-0); Platelets 365 thou/uL (152-406); RBC Red Blood Cell Count 3.98 M/uL (3.86-4.86); Red Cell Distribution Width 16.1 % (12.1-15.2)
[2023-08-14 07:57] LABS: Albumin 2.8 g/dL (3.4-5.0); Albumin/Globulin Ratio 0.8 (1.1-1.8); Anion Gap 12.1 mEq/L (5.0-15.0); Bilirubin Total 0.4 mg/dL (0.2-1.0); Globulin 3.7 g/dL (2.3-3.5); Magnesium 1.9 mg/dL (1.6-2.4); Potassium 4.1 mEq/L (3.5-5.1); Protein, Total 6.5 g/dL (6.4-8.2)
[2023-08-14] MEDS ORDERED: LIDOCAINE 1% MPF 5 ML VIAL ONE (08:22)
[2023-08-14] MEDS ORDERED: propofoL 200 MG/20 ML VIAL IV ONE (08:22)
[2023-08-14] MEDS ORDERED: MIDAZOLAM HCL 2 MG/2 ML INJ ONE (08:23)
[2023-08-14] MEDS ORDERED: FENTANYL CITR 100 MCG/2 ML ONE (08:23)
[2023-08-14] MEDS: BRIMONIDINE TARTRATE OPTH SCH (08:25)
[2023-08-14] MEDS: NA CHLORIDE 0.9% 1,000 ML ONE (08:25)
[2023-08-14] MEDS: HOME MED 1 EA UNK (Insulin Degludec [Tresiba] 100 UNIT/ML Vial) SQ SCH (08:25)
[2023-08-14] MEDS: HOME MED 1 EA UNK (Empagliflozin [Jardiance] 25 MG Tablet) PO SCH (08:25)
[2023-08-14] MEDS: ASPIRIN 81 MG CHEWABLE TABLET PO SCH (08:25)
[2023-08-14] MEDS: LATANOPROST OPTH SCH (08:25)
[2023-08-14] MEDS: OXYBUTYNIN ER 5 MG TAB PO SCH (08:25)
[2023-08-14] MEDS: AMLODIPINE 5 MG TAB PO SCH (08:26)
[2023-08-14] MEDS: BENAZEPRIL 20 MG TAB PO SCH (08:26)
[2023-08-14] MEDS: VITAMIN D 5,000 UNIT CAP PO SCH (08:26)
[2023-08-14] MEDS: MONTELUKAST 10 MG TAB PO SCH (08:26)
--- NOTE | 2023-08-14 08:30 | P.PN ---
Subjective Date of Service: 08/14/23 Primary Care Provider: Dr. Harris Chief Complaint: sepsis, UTI, perianal abscess Admitted with perirectal abscess, urinary tract infection, started on IV antibiotics, Afebrile, pain control with as needed analgesia N.p.o. surgery to eval today for I&D - Physical Exam General: Alert, In no apparent distress, Oriented x3 HEENT: Atraumatic, Normocephalic Neck: Supple, 2+ carotid pulse no bruit Respiratory: Clear to auscultation bilaterally, Normal air movement Cardiovascular: No edema, Normal pulses, Regular rate/rhythm, Capillary refill: <2 Seconds Gastrointestinal: Normal bowel sounds, Soft and benign Musculoskeletal: No clubbing, No swelling Integumentary: Other (right perianal tenderness, abscess) Neurological: Normal speech, Normal tone <Gloria Hernandez - Last Filed: 08/14/23 15:05> Date of Service: 08/14/23 <Ozzy Holman - Last Filed: 08/14/23 15:20> Review of Systems Per HPI <Gloria Hernandez - Last Filed: 08/14/23 15:05> Physical Examination - Vital Signs Temperature: 97.5 F Blood Pressure: 136/52 Pulse: 73 Respirations: 18 Pulse Ox (%): 96 - Studies Laboratory Data (last 24 hrs) 08/13/23 08/13/23 08/13/23 11:58 11:58 11:58 WBC 12.40 H Hgb 10.1 L Hct 31.0 L Plt Count 333 PT 11.9 INR 1.08 APTT 30.5 Sodium 133 L Potassium 4.3 BUN 23 H Creatinine 1.23 H Glucose 299 H Total Bilirubin 0.4 AST 20 ALT 12 L Alkaline Phosphatase 91 <Gloria Hernandez - Last Filed: 08/14/23 15:05> Assessment And Plan - Plan - Plan Perianal abscess with sepsis without shock Leukocytosis likely secondary from perirectal abscess, acute cystitis Consult Dr. Corbin Merrem 500mg IVPB 1 8h (day one 08/13/23) wound culture pending 06/15 status post ID rectal abscess Dr Corbin Acute cystitis Culture + for 4+ Gram negative rods E. coli Merrem 500mg IVPB q8h (day one 08/13/23) Trend VS and Labs (WBC actually down from 08/11/23 with Augmentin) NS at 100ml/hr Acute on chronic kidney injury unknown baseline Trend BUN 23.23 estimated GFR 46->16/1.05 estimated GFR 55 Essential hypertension: trend vs Amlodipine 5 mg po daily Benazepril 40mg po BID Carvedilol 25mg po BID Aspirin 81mg po daily (hold until cleared with Dr. Corbin) Hyperlipidemia: Atorvastatin 10mg po daily NIDDM: Hyperglycemia uncontrolled FSBS q ac&HS, q6h when NPO SSI per protocol Hypothyroidism: Levothyroxine 200mcg po daily Asthma: O2 per protocol Incentive spirometry Advair Inh BID DVT prophylaxis: SCDs for surgery tomorrow GI prophylaxis: Protonix 40mg SIVP daily Code Status: Full Discharge Plan: Home Plan to discharge in: 72 Hours - Code Status/Comfort Care Code Status: Full Code Critical Care: No Time Spent Managing PTS Care (In Minutes): 35 <Gloria Hernandez - Last Filed: 08/14/23 15:05> - Plan Pt seen and examined. I agree with the note by the FRAME PULLEY MORTISING MACHINE OPERATOR. Gen surgery took pt to the OR this am. Will continue merrem. Will f/u culture to detemine choice of outpt antibiotic. <Ozzy Holman - Last Filed: 08/14/23 15:20>
[2023-08-14] MEDS ORDERED: PANTOPRAZOLE 40 MG INJ IVP SCH (09:00)
[2023-08-14] MEDS ORDERED: AMLODIPINE 5 MG TAB PO SCH (09:00)
[2023-08-14] MEDS ORDERED: carvediloL 25 MG TAB PO SCH (09:00)
[2023-08-14] MEDS ORDERED: HOME MED 1 EA UNK (Levothyroxine Sodium [Synthroid] 200 MCG Tablet) PO SCH (09:00)
[2023-08-14] MEDS ORDERED: ONDANSETRON 4 MG/2 ML VIAL ONE (09:26)
[2023-08-14] MEDS ORDERED: dexAMETHasone 4 MG/ML VIAL ONE (09:27)
--- NOTE | 2023-08-14 10:04 | CON ---
Date of Consultation: 08/13/2023 Reason For Consultation: Perianal pain and abscess. History Of Present Illness: The patient is a 73-year-old female who for the last week has had increa sing pain in the right perianal region. She came to the emergency room on Monday, was diagnosed with a perirectal abscess and ovarian cyst and UTI. She was advised to be admitted for surgical evaluati on; however, she just wanted to try the antibiotic, which was Augmentin and she [facility] the [facility]. However, Monday night, she had a T-max of 102.9 with increasing swelling and pain and she came back to the emergency room yesterday. The patient on physical exam still had the s aden findings. There was no drainage noted. There was increasing pain. There was no sore throat, ru nny nose, cough, headaches, or dizziness. No chest pain. Please note that the patient had UTI, which grew out 4+ gram-negative rods, E coli susceptible to Annalisa rem. Review of Systems: Otherwise unremarkable. Past Medical History: Hypertension, type 2 diabetes, chronic UTI, asthma, ovarian cyst, dextrocardia , hypothyroidism. Past Surgical History: Partial hysterectomy, bladder suspension, cholecystectomy, radiation treatmen t to the thyroid and tonsillectomy, adenoidectomy. Allergies: INCLUDE BACTRIM AND NITROFURANTOIN. THE PATIENT DOES NOT SMOKE AND DOES NOT DRINK ALCOHO L. Family History: Noncontributory. Physical Examination: Vital Signs: Currently are stable. She is afebrile. She had one pulse rate recorded last night of 140, but this morning it is down to 73. General: She is awake and alert. Head and Neck: No masses. Chest: Clear. Heart: S1, S2. Abdomen: Soft. Extremities: Neurovascularly intact. Neuro: Nonfocal. Rectal: Reveals a right-sided area of induration and fluctuance and tenderness with mild redness. N o open wound. No drainage. Laboratory Data: Shows white count of 12.4 yesterday with a left shift, today it is 9.7 and the left shift has improved. INR is 1.08. Chemistry reviewed. Her BUN and creatinine are slightly elevated . On admission, glucose is slightly elevated. Lactic acid is 1.0. CT report from Monday reviewed, which shows a 3.7 x 3.0 collection demonstrating irregular thick wall enhancement with some septation and adjacent ill-defined fluid in the right perianal region. She also has a small umbilical hernia and a right adnexal multiloculated cystic lesion now measuring 6 cm, which is larger than previously measured of 4.3 x 3.8. Assessment: A 73-year-old female with right perirectal abscess, urinary tract infection, and right o varian complex cyst with umbilical hernia. Recommendation: At this time, the patient needs to be treated for UTI of the perirectal abscess. We will proceed with exam under anesthesia, rigid proctoscopy and incision, drainage, and debridement o f right perirectal abscess. The patient understands risks, benefits, and alternatives and agrees to procedure. Her ovarian cyst and umbilical hernia issues can be addressed as an outpatient as they ne ed LEATHER SPONGER evaluation. The plan of care will be discussed with the patient's hospitalist after surgery. /MODL Voice ID: [id number] Report ID: [id number]
--- NOTE | 2023-08-14 10:09 | P.OP ---
Date of Service: 08/14/23 Preop diagnosis: Right perirectal abscess Postop diagnosis: Same Procedure performed: Examiner anesthesia, proctoscopy and incision, drainage and debridement right perirectal abscess Surgeon: Brendan Corbin MD Production Sorter: None Estimated blood loss: Minimal Specimen: Pus Findings: As above Anesthesia: General Complications: None Drains: None Fluids and blood products: Nonapplicable Disposition: Recovery room Operative note: Patient brought to the OR and placed in the supine position. General anesthesia began. Patient placed in the lithotomy position. Patient prepped and draped in the usual sterile fashion. Exam under anesthesia revealed a approximately 4 x 6 cm area of induration with central fluctuance on the right perirectal region. Proctoscopy revealed no evidence of disease. Marcaine 0.5% infiltrated locally for postop pain control. 15 blade used to make approximately a 4 cm incision in the right perirectal region over the abscess. Pus under pressure evacuated and cultures taken. Loculations broken and blue bleeding controlled with cautery. Wet-to-dry normal saline dressing change applied. Patient awakened and taken recovery room in good general condition. CC:
[2023-08-14] MEDS ORDERED: ONDANSETRON 4 MG/2 ML VIAL IV PRN (10:13)
[2023-08-14 10:56] VITALS: O2SAT 93
--- NOTE | 2023-08-14 14:24 | EKG ---
Test Date: 2023-08-13 Test Time: 11:55:40 Senior Business Broker: MEASUREMENT RESULTS: Intervals: Rate: 68 VA: 168 QRSD: 134 QT: 432 QTc: 459 Anderson: P: 118 VA: 168 QRS: 243 T: 153 INTERPRETIVE STATEMENTS: Suspect arm lead reversal, interpretation assumes no reversal Normal sinus rhythm Right bundle branch block, plus right ventricular hypertrophy T wave abnormality, consider lateral ischemia Abnormal ECG Compared to ECG 06/05/2021 12:51:01 Right ventricular hypertrophy now present T-wave abnormality now present Possible ischemia now present Left anterior fascicular block no longer present Bifascicular block no longer present Left ventricular hypertrophy no longer present Myocardial infarct finding no longer present Electronically Signed On 08-14-23 14:23:44 CDT by Mitesh Sears
[2023-08-14] MEDS: HYDROCODONE/APAP 7.5/325 MG TAB PO PRN (20:38)
[2023-08-14] MEDS: INSULIN REGULAR (HUMAN) 100 UNIT/ML SQ SCH (20:54)
[2023-08-14] MEDS ORDERED: ATORVASTATIN 10 MG TAB PO SCH (21:00)
--- NOTE | 2023-08-15 06:42 | P.DS ---
Admission Date: 08/13/23 Discharge Date: 08/15/23 Primary Care Provider: Dr. Harris Reason for Admission: sepsis, UTI, perianal abscess Brief History of Present Illness: Mrs. Balderas is a 73-year-old female with a past medical history of hypertension, insulin-dependent diabetes, hypothyroidism, frequent UTIs, and asthma who presented to the ER on August 11, 2023 with complaints of dysuria and right perianal pain. She was evaluated at that time and admission was offered however patient declined admission. She was given Augmentin p.o. and went home. She returned to the ER today with 102.9 fever and worsening signs and symptoms. Her laboratory evaluation is actually improved since 3 days ago but on CAT scan she has a right perianal 3.7 x 3.0 cm collection with thick wall enhancement, septation, and adjacent ill-defined fluid. We will admit her to the hospital, keep her n.p.o. after midnight, start Cefepime 500mg q8h, and Dr. Corbin, who was consulted from the emergency department, will take her to the OR tomorrow for treatment of the perianal abscess. Culture and sensitivity results from August 10 are in the computer showing, 4+ gram-negative rods, E. coli susceptible to Merrem. General: Alert, In no apparent distress, Oriented x3 HEENT: Atraumatic, Normocephalic Neck: Supple, 2+ carotid pulse no bruit Respiratory: Clear to auscultation bilaterally, Normal air movement Cardiovascular: No edema, Normal pulses, Regular rate/rhythm, Capillary refill: <2 Seconds Gastrointestinal: Normal bowel sounds, Soft and benign Musculoskeletal: No clubbing, No swelling Integumentary: Other (right perianal tenderness, abscess) Neurological: Normal speech, Normal tone Lymphatics: No axilla or inguinal lymphadenopathy Rectal: Tenderness Hospital Course: 73-year-old femaleyear-old female patient presented with perineal pain. Was noted to have rectal abscess. She was evaluated by surgery is status post incision and drainage of rectal abscess. Infectious disease consulted to see patient, patient tolerating diet, stable for discharge to home with follow-up appointment with primary care physician. Follow-up with surgery after discharge PROBLEM: Perianal Abscess Acute Cystitis Hypertension Hyperlipidemia Non-insulin dependent diabetes mellitus hypothyroidism Status post incision and drainage by Dr. Corbin Wet-to-dry dressing changes, home health ordered Antibiotics per surgery Penny, yl, Follow-up with Dr. Corbin after discharge Educated patient to take probiotics while on antibiotics Instructed patient to take stool softeners while taking as needed analgesics No driving or using heavy equipment while on pain medications Continue home medicines as previously prescribed GOAL: Clear understanding of disease process INSTRUCTIONS: Physician Discharge Instructions: -Follow-up with PCP in 1 to 2 weeks -Please call [phone] if any questions regarding hospital stay -Please call nursing station at [phone] if any nursing or medication questions -Return to the emergency room if symptoms worsen Diet: ADA, low sodium Activity: Fall precautions <Gloria Hernandez - Last Filed: 08/15/23 16:05> Admission Date: 08/13/23 Discharge Date: 08/15/23 Hospital Course: Pt seen and examined. I agree with the note by the SHAFTING WORKER. S/p drainage of rectal abscess. Continue cipro and flagyl at home for 10 days. Follow up with PCP. Ok to discharge pt. <Ozzy Holman - Last Filed: 08/15/23 21:16> Disposition: DC HOME/HOME HEALTH CARE Discharge Condition: FAIR Vital Signs/Physical Exam: Temp Pulse Resp BP Pulse Ox 96.9 F 55 18 142/61 H 93 08/15/23 04:00 08/15/23 05:35 08/15/23 04:00 08/15/23 05:35 08/15/23 04:00 Laboratory Data at Discharge: WBC 9.70 thou/uL (4.3-10.9) 08/14/23 06:00 Hgb 10.2 g/dL (12.0-15.0) L 08/14/23 06:00 Hct 31.4 % (36.0-45.0) L 08/14/23 06:00 Plt Count 365 thou/uL (152-406) 08/14/23 06:00 PT 11.9 SECONDS (9.5-12.5) 08/13/23 11:58 INR 1.08 08/13/23 11:58 APTT 30.5 SECONDS (24.3-36.9) 08/13/23 11:58 Sodium 136 mEq/L (136-145) 08/14/23 06:00 Potassium 4.1 mEq/L (3.5-5.1) 08/14/23 06:00 BUN 16 mg/dL (7-18) 08/14/23 06:00 Creatinine 1.05 mg/dL (0.55-1.02) H 08/14/23 06:00 Glucose 141 mg/dL (74-106) H 08/14/23 06:00 Magnesium 1.9 mg/dL (1.6-2.4) 08/14/23 06:00 Total Bilirubin 0.4 mg/dL (0.2-1.0) 08/14/23 06:00 AST 14 U/L (15-37) L 08/14/23 06:00 ALT 11 U/L (13-56) L 08/14/23 06:00 Alkaline Phosphatase 89 U/L (45-117) 08/14/23 06:00 <Gloria Hernandez - Last Filed: 08/15/23 16:05> Vital Signs/Physical Exam: Temp Pulse Resp BP Pulse Ox 97.1 F 53 19 181/74 H 97 08/15/23 12:00 08/15/23 12:00 08/15/23 12:00 08/15/23 12:00 08/15/23 12:00 Laboratory Data at Discharge: WBC 11.10 thou/uL (4.3-10.9) H 08/15/23 06:08 Hgb 9.4 g/dL (12.0-15.0) L 08/15/23 06:08 Hct 28.9 % (36.0-45.0) L 08/15/23 06:08 Plt Count 336 thou/uL (152-406) 08/15/23 06:08 PT 11.9 SECONDS (9.5-12.5) 08/13/23 11:58 INR 1.08 08/13/23 11:58 APTT 30.5 SECONDS (24.3-36.9) 08/13/23 11:58 Sodium 137 mEq/L (136-145) 08/15/23 06:08 Potassium 4.4 mEq/L (3.5-5.1) 08/15/23 06:08 BUN 19 mg/dL (7-18) H 08/15/23 06:08 Creatinine 0.95 mg/dL (0.55-1.02) 08/15/23 06:08 Glucose 212 mg/dL (74-106) H 08/15/23 06:08 Magnesium 1.8 mg/dL (1.6-2.4) 08/15/23 06:08 Total Bilirubin 0.4 mg/dL (0.2-1.0) 08/14/23 06:00 AST 14 U/L (15-37) L 08/14/23 06:00 ALT 11 U/L (13-56) L 08/14/23 06:00 Alkaline Phosphatase 89 U/L (45-117) 08/14/23 06:00 <Ozzy Holman - Last Filed: 08/15/23 21:16> Diet: AHA Activity: Fall precautions Time spent managing pt's care (in minutes): 55 <Gloria Hernandez - Last Filed: 08/15/23 16:05> <Ozzy Holman - Last Filed: 08/15/23 21:16> Home Medications: Amlodipine Besylate 5 mg PO DAILY 08/13/23 Aspirin 81 mg PO DAILY 08/13/23 Atorvastatin Calcium 10 mg PO BEDTIME 08/13/23 Benazepril HCl 40 mg PO BID 08/13/23 Brimonidine Tartrate [Alphagan P] 1 gtt EACH EYE BID 08/13/23 Carvedilol [Coreg] 25 mg PO BID 08/13/23 Empagliflozin [Jardiance] 25 mg PO DAILY 08/13/23 Insulin Degludec [Tresiba] 68 units SQ DAILY 08/13/23 Latanoprost [Xalatan] 1 drop EACH EYE DAILY 08/13/23 Levothyroxine Sodium [Synthroid] 200 mcg PO DAILY 08/13/23 Montelukast [Singulair*] 10 mg PO DAILY 08/13/23 Oxybutynin Chloride [Oxybutynin Chloride ER] 10 mg PO DAILY 08/13/23 Pantoprazole [Protonix Tab*] 40 mg PO BID 08/13/23 Triamterene/Hydrochlorothiazid [Triamterene-Hctz 37.5-25 mg Cp] 1 cap PO DAILY 08/13/23 Ciprofloxacin HCl [Cipro 500 MG Tablet] 500 mg PO BID 10 Days #20 tab 08/15/23 Docusate [Colace Cap] 100 mg PO BID 30 Days #60 cap 08/15/23 Hydrocodone 7.5/APAP 325 [[place] 7.5/325 mg] 1 tab PO Q4H PRN 5 Days #30 tab 08/15/23 metroNIDAZOLE [Flagyl] 500 mg PO Q8H 10 Days #30 tab 08/15/23 New Medications: Ciprofloxacin HCl [Cipro 500 MG Tablet] 500 mg PO BID 10 Days #20 tab Docusate [Colace Cap] 100 mg PO BID 30 Days #60 cap metroNIDAZOLE [Flagyl] 500 mg PO Q8H 10 Days #30 tab Hydrocodone 7.5/APAP 325 [[place] 7.5/325 mg] 1 tab PO Q4H PRN 5 Days #30 tab PRN Reason: Pain Physician Discharge Instructions: Wet-to-dry normal saline dressing changes daily Cipro, Flagyl, [place] and Colace as ordered by the hospitalist team No heavy lifting or strenuous exercise Home health Follow-up my office 1 to 2 weeks, call for appointment Incentive spirometry as instructed 73-year-old femaleyear-old female patient presented with perineal pain. Was noted to have rectal abscess. She was evaluated by surgery is status post incision and drainage of rectal abscess. Patient tolerating diet, stable for discharge to home with follow-up appointment with primary care physician. Follow-up with surgery after discharge PROBLEM: Rectal abscess Status post incision and drainage by Dr. Corbin Wet-to-dry dressing changes, home health ordered Ovarian cyst, Follow up with OBGYN Antibiotics per surgery Jhonatanro, Flagyl, Follow-up with Dr. Corbin after discharge Educated patient to take probiotics while on antibiotics Instructed patient to take stool 12 softeners while taking as needed analgesics No driving or using heavy equipment while on pain medications Continue home medicines as previously prescribed GOAL: Clear understanding of disease process INSTRUCTIONS: Physician Discharge Instructions: -Follow-up with PCP in 1 to 2 weeks -Please call [phone] if any questions regarding hospital stay -Please call nursing station at [phone] if any nursing or medication questions -Return to the emergency room if symptoms worsen Diet: ADA, low sodium Activity: Fall precautions Home Health arranged: [facility] P:[phone] F:[phone] Followup: Brendan Corbin MD [ACTIVE - CAN ADMIT] - 1-2 Weeks Garth Harris MD [Primary Care Provider] -
[2023-08-15 07:10] LABS: Anion Gap 10.4 mEq/L (5.0-15.0); Magnesium 1.8 mg/dL (1.6-2.4); Potassium 4.4 mEq/L (3.5-5.1)
[2023-08-15 07:16] LABS: Absolute Lymphocytes (CBC) 1.2 K/uL (0.7-4.9); Absolute Monocytes 0.8 K/uL (0.1-1.3); Basophils % 0.1 % (0-1.3); Hematocrit 28.9 % (36.0-45.0); Hemoglobin 9.4 g/dL (12.0-15.0); Lymphocytes % 11.2 % (15.3-44.8); MCH 25.4 pg (27.0-35.0); MCHC 32.6 g/dL (32.0-36.0); MCV 78.1 fL (80-100); MPV 7.2 fL (7.6-11.3); Monocytes % 7.6 % (3.3-12.3); Neutrophils % 81.1 % (41.7-73.7); Platelets 336 thou/uL (152-406); Red Cell Distribution Width 16.6 % (12.1-15.2)
--- NOTE | 2023-08-15 09:33 | P.CNS ---
Date of Consult: 08/15/23 Reason for Consult: perineal abscess Primary Care Provider: Dr. Harris Chief Complaint: sepsis, UTI, perianal abscess History of Present Illness: "Mrs. Balderas is a 73-year-old female with a past medical history of hypertension, insulin-dependent diabetes, hypothyroidism, frequent UTIs, and asthma who presented to the ER on August 11, 2023 with complaints of dysuria and right perianal pain. She was evaluated at that time and admission was offered however patient declined admission. She was given Augmentin p.o. and went home. She returned to the ER today with 102.9 fever and worsening signs and symptoms. Her laboratory evaluation is actually improved since 3 days ago but on CAT scan she has a right perianal 3.7 x 3.0 cm collection with thick wall enhancement, septation, and adjacent ill-defined fluid. " Patient underwent drainage and debridement of right perirectal abscess on 08/13 by . Abscess cultures growing gram negative rods. Infectious disease consulted. Allergies Sulfa (Sulfonamide Antibiotics) Allergy (Unknown, Verified 08/13/23 22:57) Unknown nitrofurantoin [From Macrobid] Allergy (Verified 08/13/23 22:57) Unknown sulfamethoxazole [From Bactrim] Allergy (Verified 08/13/23 22:57) Unknown trimethoprim [From Bactrim] Allergy (Verified 08/13/23 22:57) Unknown doxycycline Adverse Reaction (Verified 08/14/23 08:24) Nausea/Vomiting Sulfa (Sulfona Allergy (Uncoded 09/10/16 11:01) Unknown Sulfa (Sulfonamid Allergy (Uncoded 08/30/16 04:02) Unknown Home Medications: Amlodipine Besylate 5 mg PO DAILY 08/13/23 Aspirin 81 mg PO DAILY 08/13/23 Atorvastatin Calcium 10 mg PO BEDTIME 08/13/23 Benazepril HCl 40 mg PO BID 08/13/23 Brimonidine Tartrate [Alphagan P] 1 gtt EACH EYE BID 08/13/23 Carvedilol [Coreg] 25 mg PO BID 08/13/23 Empagliflozin [Jardiance] 25 mg PO DAILY 08/13/23 Insulin Degludec [Tresiba] 68 units SQ DAILY 08/13/23 Latanoprost [Xalatan] 1 drop EACH EYE DAILY 08/13/23 Levothyroxine Sodium [Synthroid] 200 mcg PO DAILY 08/13/23 Montelukast [Singulair*] 10 mg PO DAILY 08/13/23 Oxybutynin Chloride [Oxybutynin Chloride ER] 10 mg PO DAILY 08/13/23 Pantoprazole [Protonix Tab*] 40 mg PO BID 08/13/23 Triamterene/Hydrochlorothiazid [Triamterene-Hctz 37.5-25 mg Cp] 1 cap PO DAILY 08/13/23 Ciprofloxacin HCl [Cipro 500 MG Tablet] 500 mg PO BID 10 Days #20 tab 08/15/23 Docusate [Colace Cap] 100 mg PO BID 30 Days #60 cap 08/15/23 Hydrocodone 7.5/APAP 325 [[place] 7.5/325 mg] 1 tab PO Q4H PRN 5 Days #30 tab 08/15/23 metroNIDAZOLE [Flagyl] 500 mg PO Q8H 10 Days #30 tab 08/15/23 - Past Medical/Surgical History Diabetic: Yes -: Hypertension -: Diabetes -: Chronic UTI -: asthma -: Ovarian cyst -: Dextrocardia -: Hypothyroidism -: Partial hysterectomy -: Bladder suspension -: Cholecystectomy -: Radiation to thyroid -: Tonsillectomy Psychosocial/ Personal History: Lives at home with her - Social History Alcohol use: No CD- Drugs: No Caffeine use: Yes Place of Residence: Home Review of Systems 10-point ROS is otherwise unremarkable Physical Examination Temp Pulse Resp BP Pulse Ox 96.9 F 51 16 166/65 H 98 08/15/23 08:00 08/15/23 08:00 08/15/23 08:00 08/15/23 08:00 08/15/23 08:00 General: Alert, In no apparent distress, Oriented x3 HEENT: Atraumatic, Normocephalic Respiratory: Clear to auscultation bilaterally, Normal air movement Cardiovascular: No edema, Regular rate/rhythm Gastrointestinal: Normal bowel sounds, Soft and benign, Non-distended Musculoskeletal: No clubbing Neurological: Normal speech, Normal tone, Normal affect Laboratory data - Reviewed Microbiology data - reviewed Imagings Data: - reviewed Conclusions/Impression: Problem List Perianal Abscess Acute Cystitis Hypertension Hyperlipidemia Non-insulin dependent diabetes mellitus hypothyroidism Perianal abscess - s/p drainage and debridement of right perirectal abscess on 08/13 by . - Abscess culture 08/13: gram negative rods. - Currently on Meropenem (started 08/12) Afebrile Recommendations - Recommend switch to Ciprofloxacin PO and Flagyl PO x10 days - Monitor for worsening s/s of infection. Continue wound care per surgery / wound care team. - Follow up with Dr. Corbin as outpatient Case discussed with Samantha Saleh
[2023-08-15] MEDS: NA CHLORIDE 0.9% 100 ML ONE (11:30)
[2023-08-15] MEDS: MAGNESIUM SULFATE 1 gm IVPB 1 GM/100 ML BAG IV ONE (11:30)
[2023-08-15] MEDS: HYDROMORPHONE HCL 1 MG/ML INJ IV PRN (11:30)
[2023-08-15 12:37] VITALS: BP 181/74; TEMP 97.1
--- NOTE | 2023-08-15 12:37 | PN ---
Date of Progress Note: 08/15/2023 Subjective: The patient is awake, alert, in no pain. Objective: Vital Signs: Stable. She is afebrile, Laboratory Data: Reviewed. White count is 11.1. There is a slight left shift. Cultures are pendin g. Dressing is clean, dry, and intact. Assessment: Status post incision, drainage, and debridement of right perirectal abscess and also pat ient had an enlarging right ovarian cyst. Recommendation: The patient is cleared from Surgery for discharge. Antibiotic recommendations have been discussed with the hospitalist team. Discharge instructions have been given. Home health is be ing arranged and the patient will see me in my office in 1 to 2 weeks and she will follow up with [facility] regarding her ovarian cyst at [facility]. FLORI/RK Voice ID: [id number] Report ID: [id number]
[2023-08-15] MEDS ORDERED: Meropenem 1,000 MG in NA CHLORIDE 0.9% 100 ML IV SCH (17:00)
== END 2023-08-15 14:12 | disposition home health service (06) | DRG 854 ==
LOC: ER 10:59 → ERHOLD 15:33 → 4TH 19:56
PROVIDERS: ADMIT Hospitalist; ATTEND Hospitalist
PROC: 0D9P8ZZ Drainage of Rectum, Via Natural or Artificial Opening Endoscopic (ICD-10-PCS; principal; 2019-08-14)
DX: A41.51 Sepsis due to Escherichia coli [E. coli] (principal); K61.0 Anal abscess; N39.0 Urinary tract infection, site not specified; N17.9 Acute kidney failure, unspecified; I10 Essential (primary) hypertension; E11.65 Type 2 diabetes mellitus with hyperglycemia; E78.5 Hyperlipidemia, unspecified; E03.9 Hypothyroidism, unspecified; N83.201 Unspecified ovarian cyst, right side; K42.9 Umbilical hernia without obstruction or gangrene; J45.909 Unspecified asthma, uncomplicated; Z79.4 Long term (current) use of insulin; Z88.2 Allergy status to sulfonamides; Z88.1 Allergy status to other antibiotic agents; Z79.02 Long term (current) use of antithrombotics/antiplatelets; Z79.82 Long term (current) use of aspirin; Z90.49 Acquired absence of other specified parts of digestive tract; Z90.710 Acquired absence of both cervix and uterus; Z90.711 Acquired absence of uterus with remaining cervical stump; Z79.890 Hormone replacement therapy; Z79.899 Other long term (current) drug therapy
CPT/HCPCS: 36415; 74177; 80048; 80053; 81001; 82947; 83605; 83690; 83735; 85025; 85610; 85730; 87040; 87070; 87075; 87077; 87086; 87088; 87186; 87205; 93005; 96361; 96365; 96374; 96375; 99284; 99285; J1100; J1170; J1815; J2001; J2185; J2250; J2405; J2543; J2704; J3010; J3475; J3535; J7030; J7040; Q9967

== ENCOUNTER 2024-04-26 09:55 | Observation (INO) | payer OTHER ==
--- OUTSIDE RECORDS SUMMARY | 2024-04-26 09:59 | XMS REPORT | Clinical Summary ---
Author Name Unknown Organization [facility] Address [address] [place] [address] Care Team Providers Care Clinical Documentation Improvement Specialist Name Role Phone Marimar Garcia RN Unavailable Hua Hawthorne MD Unavailable [phone] Ismael Rosas MD Primary Care Provid er Angel Mathew MD Unavailable [phone] Bee Gonzales RN Unavailable [phone] Gt Gonzales MD Unavailable [phone] Allergies Active Allergy Reactions Criticality Noted Date Comments Amoxicillin Other (See Comments) 06/23/2023 Cefuroxime Other (See Comments) 10/20/2023 Doxycycline Other (See Comments) 06/23/2023 Nitrofurantoin Itching,Swelling,Ot her (See Comments) 06/23/2023 Sulfa (Sulfonamide Antibiotics) Other (See Comments) 08/30/2016 Other Reaction(s): Unknown Other Reaction(s): Not available, Unknown Data migrated from Soum on 12/25/14. Originally documented as SULFA. Data migrated from Soum on 12/25/14. Originally documented as SULFA. Sulfamethoxazole-Trimeth oprim Other (See Comments) 06/23/2023 Trimethoprim 08/13/2023 Other Reaction(s): Unknown Medications amLODIPine (NORVASC) 5 mg tablet TAKE ONE (1) TABLET(S) BY MOUTH ONCE A DAY. Active aspirin 81 mg chewable tablet DAILY 4 Active atorvastatin (LIPITOR) 10 mg tablet TAKE ONE (1) TABLET(S) BY MOUTH ONCE A DAY. 9 Active benazepril (LOTENSIN) 40 MG tablet TAKE ONE (1) TABLET(S) BY MOUTH TWICE A DAY. 1 Active carvedilol (COREG) 25 mg tablet TAKE ONE (1) TABLET(S) BY MOUTH TWICE A DAY. 3 Active cholecalciferol , vitamin D3, 10 mcg (400 unit) cap Active Glyxambi 25-5 mg tab TAKE ONE (1) TABLET(S) BY MOUTH EVERY MORNING. Active fluticasone propionate-salm eterol (ADVAIR) 250 mcg-50 mcg/inhalation diskus inhaler INHALE ONE (1) PUFF(S) BY MOUTH TWICE A DAY. Active Tresiba FlexTouch U-200 200 unit/mL (3 mL) insulin pen Inject 100 Units under the skin. 1 Active latanoprost (XALATAN) 0.005% ophthalmic solution INSTILL ONE (1) DROP INTO BOTH EYES AT BEDTIME. 4 Active levothyroxine (SYNTHROID, LEVOTHROID) 175 mcg tablet Take 1 tablet (175 mcg) by mouth daily. 7 Active montelukast (SINGULAIR) 10 mg tablet TAKE ONE (1) TABLET(S) BY MOUTH ONCE A DAY. 7 Active tolterodine (DETROL LA) 4 mg 24 hr capsule Take by mouth daily. Active biotin 1 mg cap Take by mouth. Active sucralfate (CARAFATE) 1 g tablet Take by mouth. Active pantoprazole (PROTONIX) 40 mg EC tablet TAKE ONE (1) TABLET(S) BY MOUTH TWICE A DAY. Active triamterene-hyd roCHLOROthiazid e (DYAZIDE) 37.5 mg-25 mg per capsule TAKE ONE (1) CAPSULE(S) BY MOUTH DAILY. 7 Active brimonidine (ALPHAGAN P) 0.1% ophthalmic solution INSTILL ONE (1) DROP(S) IN EACH EYE TWICE A DAY. Active hydroCHLOROthia zide 12.5 mg tabletIndicatio ns:Pre-surgery evaluation Take 1 tablet (12.5 mg) by mouth daily. 30 tablet 4 Active senna-docusate (Senna Plus) 8.6 mg-50 mg tabletIndicatio ns:Mass of ovary,Postopera tive state Take 1 tablet by mouth twice daily. 60 tablet 12/11/2023 12:03 PM CDT 4 Active acetaminophen (Tylenol Extra Strength) 500 mg tabletIndicatio ns:Mass of ovary,Postopera tive state Take 2 tablets (1,000 mg) by mouth every 6 (six) hours as needed for mild pain. 60 tablet 12/11/2023 12:03 PM CDT 4 Active oxyCODONE (ROXICODONE) 5 mg immediate release tabletIndicatio ns:Mass of ovary,Postopera tive state Take 1 tablet (5 mg) by mouth every 4 (four) hours as needed for severe pain. 5 tablet 12/11/2023 12:03 PM CDT 4 Active Tradjenta 5 mg tab TAKE ONE (1) TABLET(S) BY MOUTH DAILY. Active repaglinide (PRANDIN) 0.5 mg tablet TAKE THREE (3) TABLET(S) BY MOUTH THREE TIMES A DAY (MORNING, NOON AND EVENING) BEFORE MEALS. Active methenamine-met hyl.blue-sod phos-p.salicyla te-hyoscyamine (URIBEL) 118-10-40.8-36 mg capsule TAKE ONE (1) CAPSULE(S) BY MOUTH TWICE A DAY NEEDED. Active lactobacillus comb no.10 (Probiotic) 20 billion cell cap Active albuterol (VENTOLIN HFA,PROAIR HFA) 90 mcg/puff inhaler INHALE TWO (2) PUFF(S) BY MOUTH EVERY FOUR HOURS FOR 30 DAYS. 4 Active olopatadine 0.7 % drop PUT 1 DROP INTO BOTH EYES EVERY DAY NEEDED FOR ALLERGIES 12/11/19 24 Discontinu ed(Stop Taking at Discharge) empagliflozin-l inagliptin (Glyxambi) 25-5 mg tab Take 1 tablet by mouth. 12/11/19 24 Discontinu ed(Stop Taking at Discharge) Active Problems Problem Noted Date Diagnosed Date Type 2 diabetes mellitus 12/01/2023 Mass of ovary 11/03/2023 Encounters Date Type Department Care Team Description 01/15/2024 Documentation [facility] [address] [place] [address], [address] [place] [phone] Bee Gonzales RN 01/12/2024 11:00 AM CDT Office Visit [facility] [address] [place] [address], [address] [place] [address] Ismael Rosas MD Mass of ovary 01/12/2024 Travel 12/11/2023 7:15 AM CDT Anesthesia Event MAIN OR [address] [place], [place] [id number] Alyssa Weeks MD Christopher, Renee N, PADILLA 12/11/2023 7:00 AM CDT - 12/11/2023 10:00 AM CDT Surgery MAIN OR [address] [place] [phone] Ismael Rosas MD LAPAROSCOPY WITH REMOVAL OF ADNEXAL STRUCTURES (PARTIAL OR TOTAL OOPHERECTOMY AND/OR SALPINGECTOMY 12/11/2023 4:58 AM CDT - 12/11/2023 2:23 PM CDT Hospital Encounter MAIN OR [address] [place] [address] Ismael Rosas MD Mass of ovary (Primary Dx); Postoperative state Discharge Disposition: Home 12/11/2023 Travel 12/01/2023 1:30 PM CDT Office Visit [facility] [address] [place] [address], [address] [place] [address] Ismael Rosas MD Mass of ovary 12/01/2023 12:00 PM CDT POEM Appointments Perioperative Evaluation [facility] Management Center [address] [place] [address], [address] [place] [phone] Ismael Rosas MD 12/01/2023 10:30 AM CDT Consult Perioperative Evaluation and Management [address] [place] [address], [address] [place] [address] Ismael Rosas MD Razouki, Zayd Adnan, MD Pre-surgery evaluation (Primary Dx); Mass of ovary 12/01/2023 8:17 AM CDT - 12/01/2023 11:59 PM CDT Hospital Encounter Diagnostic Laboratory Center [address] [place] [address] Ismael Rosas MD Mass of ovary; Pre-surgery evaluation Discharge Disposition: Home 12/01/2023 Orders Only [facility] [address] [place] [address] Ismael Rosas MD Mass of ovary (Primary Dx) 12/01/2023 Travel 11/29/2023 11:59 PM CDT Anesthesia Event Perioperative [facility] Management Center [address] [place] [address] Bailee Vazquez, IRONWORKER APPRENTICE 11/29/2023 Telephone [facility] [address] [place] [address] Ismael Rosas MD Patient Cardiology Report (Patient's called to verify that the clinical team has received the cardiology report that was requested. He states that he requested it be sent over on 11/23. Please assist and reach out to him to confirm.) 11/13/2023 11:15 PM CDT Ancillary Procedure Image Library [address] [place] [address] Ismael Rosas MD Cancer 11/13/2023 11:10 PM CDT Ancillary Procedure Image Library [address] [place], [place] [id number] Ismael Rosas MD Cancer 11/08/2023 Telephone [facility] [address] [place], [place] [phone] Bee Gonzales, RN Confirm Treatment Plan 11/03/2023 1:30 PM CDT Follow-Up [facility] [address] [place] [address] Ismael Kahn MD Mass of ovary 11/03/2023 Documentation [facility] [address] [place] [phone] Bee Gonzales, LAURYN 11/03/2023 Prep for Surgery [facility] [address] [place] [phone] Angelic Leon APRN Mass of ovary (Primary Dx) 11/03/2023 Travel 11/02/2023 5:30 PM CDT Ancillary Procedure CT Imaging [address] [place] [address] [facility] Ismael Stroud MD Mass of ovary 11/02/2023 3:00 PM CDT Ancillary Procedure General Ultrasound [address] [place] [address], [address] [place] [address] Angelic Leon APRN Mass of ovary 11/02/2023 2:00 PM CDT Ancillary Procedure General Ultrasound [address] [place] [address], [address] [place] [address] Ismael Rosas MD Mass of ovary 11/02/2023 Telephone [facility] [address] [place] [phone] Bee Gonzales, RN Plan For the Day 10/26/2023 Telephone [facility] [address] [place] [phone] Consuelo Hatfield, RN Post first visit call 10/24/2023 Orders Only [facility] [address] [place] [phone] Angelic Leon APRN 10/24/2023 Telephone [facility] [address] [place] [address], [facility] [place] [address] Marimar Garcia, RN Follow-up 10/20/2023 11:30 AM CDT - 10/20/2023 11:59 PM CDT Hospital Encounter Diagnostic Laboratory Center [address] [place] [address] Angelic Leon APRN Mass of ovary Discharge Disposition: Home 10/20/2023 10:00 AM CDT Office Visit [facility] [address] [place] [phone] Ismael Rosas MD Mass of ovary (Primary Dx) 10/20/2023 Travel 10/19/2023 9:00 AM CDT NPR [facility] PATIENT ACCESS 10/18/2023 Telephone [facility] [address] [place] [phone] Marimar Garcia, RN New Patient 10/12/2023 Telephone [facility] [address] [place] [address] Marimar Garcia, RN New Patient 10/11/2023 Telephone [facility] [address] [place] [address], [address] [place] [address] Marimar Garcia, RN New Patient after 04/27/2023 Surgical History Surgery Date Site/Laterality Comments TONSILLECTOMY THYROIDECTOMY 05/29/1975 - 05/28/1976 HYSTERECTOMY VAGINAL supracervical BLADDER SUSPENSION 05/29/1990 - 05/28/1991 CHOLECYSTECTOMY DE LAPAROSCOPY W/RMVL ADNEXAL STRUCTURES 12/11/2023 Vagina /Bilateral Procedure: LAPAROSCOPY WITH REMOVAL OF ADNEXAL STRUCTURES (PARTIAL OR TOTAL OOPHERECTOMY AND/OR SALPINGECTOMY; Surgeon: Ismael Rosas MD; Location: MAIN OR; Service: FIELD SUPPORT REPRESENTATIVE - GYNECOLOGIC ONCOLOGY Medical History Medical History Date Comments Essential (primary) hypertension Asthma Glaucoma Dextrocardia Bursitis Recurrent urinary tract infection Hypothyroidism Gastro-esophageal reflux disease without esophag itis Diabetes mellitus Family History Medical History Relation Name Comments Bladder Cancer Brother Relation Name Status Comments Brother Social History Tobacco Use Types Packs/Day Years Used Date Smoking Tobacco: Never Smokeless Tobacco: Never Tobacco Cessation:Counseling Given: Not Answered Comments No Sex and Gender Information Value Date Recorded Sex Assigned at Not on file Legal Sex Female 5:38 PM CDT Gender Identity Not on file Sexual Orientation Not on file Obstetrics History Para Term AB IAB SAB Ectopic Multiple Livin g Live Births 2 2 Date Outcome GA Total Labor Labor/2nd/3rd Weight Sex Type Anes PTL Joy A1 A5 Name Clin Para Vag-Spo nt Para Vag-Spo nt Last Filed Vital Signs Vital Sign Reading Time Taken Comments Blood Pressure 133/49 01/12/2024 11:20 AM CDT Pulse 59 01/12/2024 11:20 AM CDT Temperature 36.7 C (98.1 F) 01/12/2024 1 1:20 AM CDT Respiratory Rate 16 01/12/2024 11:2 0 AM CDT Oxygen Saturation 97% 01/12/2024 11: 20 AM CDT Inhaled Oxygen Concentration - - Weight 93.8 kg (206 lb 12.7 oz) 024 11:07 AM CDT Height 157.5 cm (5' 2.01") 10/20/2023 9:52 AM CD T Body Mass Index 37.81 10/20/2023 9:52 AM CDT Plan of Treatment Health Maintenance Due Date Last Done Comments Pneumococcal Vaccine: 65+ Ye ars (1 of 2 - PCV) 1956 COVID-19 Vaccine (3 - season) 2024, 06/02/2020 Influenza Vaccine (#1) 2024 02/26/2022 Procedures Procedure Name Priority Date/Time Associated Diagnosis Comments POC GLUCOSE SCREEN Routine 12/11/2023 10:35 AM CDT PATHOLOGY SURGICAL INTERPRETATION Routine 12/11/2023 8:48 AM CDT Mass of ovary CYTOLOGY NON-FIELD SUPPORT REPRESENTATIVE INTERPRETATION Routine 12/11/2023 8:27 AM CDT Mass of ovary DE LAPAROSCOPY W/RMVL ADNEXAL STRUCTURES 12/11/2023 6:48 AM CDT Mass of ovary Special Needs [id number] TYPE AND SCREEN STAT 12/11/2023 6:05 AM CDT POC GLUCOSE SCREEN Routine 12/11/2023 6: 04 AM CDT VITAMIN D 25 HYDROXY LEVEL Add-On 12/01/2023 8:34 AM CDT Pre-surgery evaluation .CBC Routine 12/01/2023 8:34 AM CDT Mass of ovary TYPE AND SCREEN Routine 12/01/2023 8:34 AM CDT Mass of ovary THYROID STIMULATING HORMONE Routine 12/01/2023 8:34 AM CDT Mass of ovary THYROXINE Routine 12/01/2023 8:34 AM CDT Mass of ovary PROTHROMBIN TIME Routine 12/01/2023 8:34 AM CDT Mass of ovary APTT Routine 12/01/2023 8:34 AM CDT Mass of ovary HEMOGLOBIN A1C Routine 12/01/2023 8:34 AM CDT Mass of ovary MAGNESIUM LEVEL Routine 12/01/2023 8:34 AM CDT Mass of ovary COMPREHENSIVE METABOLIC PANEL Routine 12/01/2023 8:34 AM CDT Mass of ovary COMPLETE BLOOD COUNT W/ DIFFERENTIAL Routine 12/01/2023 8:34 AM CDT Mass of ovary EKG, 12-LEAD (SCHEDULED) Routine 12/01/[address] CHEST ABDOMEN PELVIS W CONTRAST Routine 11/02/2023 8:59 PM CDT Mass of ovary US PELVIS COMPLETE Routine 11/02/2023 2: 22 PM CDT Mass of ovary US TRANSVAGINAL Routine 11/02/2023 2:22 PM CDT Mass of ovary .CBC Routine 10/20/2023 12:09 PM CDT Mass of ovary CANCER ANTIGEN 125 Routine 10/20/2023 12:09 PM CDT Mass of ovary TYPE AND SCREEN Routine 10/20/2023 12:09 PM CDT Mass of ovary ALBUMIN LEVEL Routine 10/20/2023 12:09 PM CDT Mass of ovary COMPLETE BLOOD COUNT W/ DIFFERENTIAL Routine 10/20/2023 12:09 PM CDT Mass of ovary MAGNESIUM LEVEL Routine 10/20/2023 12:09 PM CDT Mass of ovary ELECTROLYTE PANEL Routine 10/20/2023 12:09 PM CDT Mass of ovary ASPARTATE AMINOTRANSFERASE Routine 10/20/2023 12:09 PM CDT Mass of ovary ALANINE AMINOTRANSFERASE Routine 10/20/2023 12:09 PM CDT Mass of ovary FRACTIONATED BILIRUBIN Routine 12:09 PM CDT Mass of ovary CREATININE Routine 10/20/2023 12:09 PM CDT Mass of ovary BLOOD UREA NITROGEN Routine 10/20/2023 12:09 PM CDT Mass of ovary GLUCOSE, RANDOM Routine 10/20/2023 12:09 PM CDT Mass of ovary HEMOGLOBIN A1C Routine 10/20/2023 12:09 PM CDT Mass of ovary HIV 1/2 ANTIGEN/ANTIBODY, FOURTH GEN W/RFL Routine 10/20/2023 12:09 PM CDT Mass of ovary HEPATITIS B SURFACE ANTIGEN Routine 10/20/2023 12:09 PM CDT Mass of ovary HEPATITIS C VIRUS ANTIBODY Routine 10/20/2023 12:09 PM CDT Mass of ovary CONFIRM ABORH TYPE Routine 10/20/2023 12:08 PM CDT Mass of ovary OSI CT ABDOMEN AND PELVIS Routine 08/11/2023 11:40 PM CDT Cancer after 04/27/2023 Results * (ABNORMAL) POC Glucose Screen - Fingerstick (12/11/2023 10:35 AM CDT) Only the most recent of2 resultswithin the time period is included. Glucose Screen 102(H) 70 - 99 mg/dL 12/11/2023 10:37 AM CDT [facility] POC Sample Type Capillary 12/11/2023 10:37 AM CDT [facility] Blood 12/11/2023 10:3 5 AM CDT 12/11/2023 10:37 AM CDT Narrative [facility] - 12/11/2023 10:37 AM CDT Capillary blood samples, e.g. obtained by fingerstick, may have inaccurate results in patients with decreased peripheral blood flow. Method description: All results are measured using Electrochemistry test methodology. The glucose in the sample mixes with the reagents on the test strip. The reaction produces an electric current. The amount of current produced is proportional to the glucose concentration in the blood. All POC Glucose screen test results, including critical values, must be interpreted and evaluated in the context of the patients' clinical findings. It is recommended to confirm any questionable test results by core lab methodology. us Ismael Stroud MD POCT ORDERABLES - DE VICE Final Result [facility] Unless otherwise noted, all lab tests performed by: Division of Pathology and Laboratory Medicine [address] [place] [id number] * Pathology Surgical Interpretation (12/11/2023 8:48 AM CDT) Submitted Clinical History Mass of ovary [R19.09] 12/13/2023 2:54 PM CDT [facility] Diagnosis A: Right ovarian mass: Serous cystadenoma with focal fibroma. Fallopian tube with no significant pathologic changes. Calcific atherosclerosis. B: Left ovary and fallopian tube: Ovary with serous cystadenoma. Fallopian tube with no significant pathologic changes. JL/FAK 12/13/2023 2:54 PM CDT [facility] Gross Description A: Right ovarian mass: Consists of a 8.0 x 5.5 x 2.3 cm previously opened cystic ovarian mass. The outer surface is abel-white, smooth and glistening. Upon completely opening, the specimen reveals abel-pink multiloculated cut surfaces filled with clear watery material. The cyst wall is abel-pink and smooth. No papillary excrescences are grossly identified. This case is discussed with Dr. Mora. Please note no fallopian tube is grossly identified. SECTION CODE: A1-A2, ovarian cyst wall, automobile sales representative for frozen and permanent section; A3-A6, additional sections of ovarian cyst wall. AJ B: Ovary and fallopian tube, left: Consists of an intact ovary (2.5 x 2.0 x 1.5 cm) with an attached disrupted fimbriated fallopian tube (3.8 cm in length x 0.6 cm in diameter) and periadnexal soft tissue. The ovary has smooth abel-pink external surfaces. The ovary serially sectioned to reveal multiple uniloculated cysts (ranging from 0.5-1.3 cm in greatest dimension) filled with clear fluid. The remaining cut surfaces are abel-pink and variegated, grossly consistent with ovarian parenchyma. No papillary excrescences are grossly identified. The fimbriated fallopian tube is serially sectioned to reveal grossly unremarkable cut surfaces. SECTION CODE: B1-E4, ovary, entirely; B5, fimbria, entirely; B6, fallopian tube cross-sections, entirely. NC 12/13/2023 2:54 PM CDT [facility] Intraoperative Evaluation A: Ovary, right, rigth ovarian mass: SEROUS CYSTADENOMA. JSL/BRENT 12/13/2023 2:54 PM CDT [facility] Biomarker Block(s) Tumor block: N/A Normal block: A1 12/13/2023 2:54 PM CDT [facility] Disclaimer "Some tests reported here may have been developed and performance characteristics determined by [facility] Medicine. These tests have not been specifically cleared or approved by the U.S. Food and Drug Administration. If applicable, controls were reviewed and showed appropriate reactivity." 12/13/2023 2:54 PM CDT [facility] Tissue (Ovary, Right) 12/11/2023 8:48 AM CDT 12/11/2023 8:54 AM CDT Tissue specimen (specimen) (Ovary and Fallopian Tube, Left) 12/11/2023 9:30 AM CDT 12/11/2023 9:46 AM CDT Ismael Stroud MD LAB PATHOLOGY ORDERA BLES Final Result [facility] [place] [address], [place] * Cytology Non-Telegraph Repeater Mechanic Interpretation (12/11/2023 8:27 AM CDT) Gross Description 4 Pap Stain Slides 210 ml. cloudy slightly bloody fluid Specimen concentrated by cytocentrifugation technique 4 3:15 PM CDT [facility] Major Classification [facility]/benign 4 3:15 PM CDT [facility] Diagnosis Pelvic washing: No malignant cells identified 4 3:15 PM CDT [facility] Retained/Biomark er Testing SR:4S 4 3:15 PM CDT [facility] Informational Points Some tests reported here may have been developed and performance characteristics determined by [facility]. These tests have not been specifically cleared or approved by the U.S. Food and Drug Administration. 3:15 PM CDT [facility] Washing (Pelvic Washing) 12/11/2023 8:27 AM CDT 12/11/2023 9:04 AM CDT Ismael Stroud MD LAB CYTOLOGY ORDERAB LES Final Result [facility] [address] [address], [place] * Type and Screen (12/11/2023 6:05 AM CDT) Only the most recent of3 resultswithin the time period is included. Pathologist [facility] ABORh A POS 12/11/2023 5:49 AM CDT [facility] ABSC Negative 12/11/2023 5:49 AM CDT [facility] Clot Expiration 12/14/2023 23:59 12/11/2023 5:49 AM CDT [facility] Historical Record Check Complete 12/11/2023 5:49 AM CDT [facility] Blood Peripheral blood specimen / Unknown Venipuncture / Unknown 12/11/2023 6:05 AM CDT 12/11/2023 7:02 AM CDT Ismael Stroud MD BLOOD BANK TEST ORDE RABLES Final Result [facility] [address] [place] [address] [id number] [place] [address] * (ABNORMAL) .CBC (12/01/2023 8:34 AM CDT) Only the most recent of2 resultswithin the time period is included. White Blood Cell 9.9 4.1 - 10.5 K/uL 12/01/2023 8:53 AM [facility] Red Blood Cell 4.64 3.99 - 5.46 M/uL 12/01/2023 8:53 AM [facility] Hemoglobin 11.6(L) 12.2 - 15.3 g/dL 12/01/2023 8:53 AM [facility] Hematocrit 37.7 36.4 - 46.8 % 12/01/2023 8:53 AM [facility] Mean Cell Volume 81(L) 82 - 99 fL 12/01/2023 8:53 AM [facility] Mean Cell Hemoglobin 25.0(L) 26.6 - 33.2 pg 12/01/2023 8:53 AM [facility] Mean Cell Hemoglobin Concentration 30.8(L) 31.1 - 35.2 g/dL 12/01/2023 8:53 AM [facility] RDW-SD 47.6 37.5 - 49.7 fL 12/01/2023 8:53 AM [facility] Red Cell Diameter Width 16.0(H) 11.6 - 15.5 % 12/01/2023 8:53 AM [facility] Platelet 325 160 - 397 K/uL 12/01/2023 8:53 AM [facility] Mean Platelet Volume 9.4 9.1 - 12.6 fL 12/01/2023 8:53 AM [facility] INRBC 0.0 0.0 - 0.1 /100 WBC 12/01/2023 8:53 AM [facility] Comment: The INRBC (instrument NRBC) value reflects the enumeration of nucleated red blood cells contained in a 200uL sample of whole blood analyzed by the instrument. This value may differ from the NRBC value reported in a manual differential, which is based on a 100 cell differential. Neutrophil % 66.6 43.2 - 72.7 % 12/01/2023 8:53 AM [facility] Lymphocyte % 22.1 16.8 - 46.2 % 12/01/2023 8:53 AM [facility] Monocyte % 6.2 5.1 - 12.5 % 12/01/2023 8:53 AM [facility] Eosinophil % 4.6 0.4 - 6.3 % 12/01/2023 8:53 AM [facility] Basophil % 0.2 0.2 - 1.4 % 12/01/2023 8:53 AM [facility] IGRE % 0.3 0.1 - 1.5 % 12/01/2023 8:53 AM [facility] Comment:The IGRE% includes M etamyelocytes, Myelocytes and Promyelocytes. Neutrophil Abs 6.56 1.95 - 7.25 K/uL 12/01/2023 8:53 AM T [facility] Lymphocyte Abs 2.18 1.01 - 3.24 K/uL 12/01/2023 8:53 AM [facility] Monocyte Abs 0.61 0.24 - 0.85 K/uL 12/01/2023 8:53 AM T [facility] Eosinophil Abs 0.45 0.02 - 0.50 K/uL 12/01/2023 8:53 AM [facility] Basophil Abs 0.02 0.02 - 0.09 K/uL 12/01/2023 8:53 AM [facility] IG Abs 0.03 0.01 - 0.12 K/uL 12/01/2023 8:53 AM [facility] Blood Peripheral blood specimen / Unknown Venipuncture / Unknown 12/01/2023 8:34 AM CDT 12/01/2023 8:46 AM CDT Ismael Stroud MD LAB BLOOD ORDERABLES Final Result [facility] [address] [facility] [place] [address] * (ABNORMAL) Comprehensive Metabolic Panel (12/01/2023 8:34 AM CDT) Bilirubin Total 0.3 0.0 - 1.2 mg/dL 12/01/2023 9:17 AM [facility] Comment:Indocyanine Green (I CG) may cause falsely elevated bilirubin results. Total and direct bilirubin must not be measured from samples containing indocyanine green. False elevation of total bilirubin can be seen in patients with IgG concentrations above 28 g/L. eGFR 59(L) >=60 mL/min/1. 73 sq. m 12/01/2023 9:17 AM CDT [facility] Comment: The eGFRcr is calculated with the 2020 CKD-EPI creatinine equation using creatinine, patient's age, and sex for adults 18 years of age and older. Other factors, especially muscle mass, may affect accuracy and need to be considered. According to the Kidney Disease: Improving Global Outcomes (KDIGO) CKD Work Group 2012 Clinical Practice Guideline, chronic kidney disease (CKD) is defined as the abnormalities of kidney structure or function, present for more than 3 months, with implications for health. CKD should be classified by cause, GFR category, and albuminuria category. KDIGO guidelines provide the following GFR categories. Stage / Description / GFR mL/min/1.73 m2: G1* / Normal or high / >= 90 G2* / Mildly decreased / 60-89 G3a / Mildly to moderately decreased / 45-59 G3b / Moderately to severely decreased / 30-44 G4 / Severely decreased / 15-29 G5 / Kidney failure / <15 *In the absence of evidence of kidney damage, neither G1 nor G2 fulfill criteria for CKD. Tot Protein 7.1 6.4 - 8.3 gm/dL 12/01/2023 9:17 AM [facility] Calcium Level Total 11.1(H) 8.2 - 10.2 mg/dL 12/01/2023 9:17 AM [facility] Alkaline Phosphatase 102 35 - 104 U/L 12/01/2023 9:17 AM [facility] Albumin Level 4.2 3.5 - 5.2 gm/dL 12/01/2023 9:17 AM [facility] AST 16 <=32 U/L 12/01/2023 9:17 AM [facility] ALT 9 <=33 U/L 12/01/2023 9:17 AM [facility] Sodium Level 137 136 - 145 mmol/L 12/01/2023 9:17 AM CDT [facility] Potassium Level 4.6(H) 3.4 - 4.5 mmol/L 12/01/2023 9:17 AM [facility] Chloride 102 98 - 107 mmol/L 12/01/2023 9:17 AM [facility]T [facility] CO2 25 22 - 29 mmol/L 12/01/2023 9:17 AM [facility]T [facility] Anion Gap 10 4 - 14 mmol/L 12/01/2023 9:17 AM [facility] Creatinine 1.00(H) 0.51 - 0.95 mg/dL 12/01/2023 9:17 AM [facility] BUN 26(H) 6 - 23 mg/dL 12/01/2023 9:17 AM [facility] Glucose Level 185(H) 70 - 99 mg/dL 12/01/2023 9:17 AM [facility] Comment: Effective 12/23/15, the glucose reference intervals have been updated based on [place] Diabetes [employer] guidelines (Standards of Medical Care in Diabetes 2016. Diabetes Care 2016; 39: S13-S22). Fasting blood glucose: Normal: 70-99 mg/dL Impaired fasting glucose (increased risk for diabetes or pre-diabetes): 100-125 mg/dL Diabetes mellitus: >/=126 mg/dL Random blood glucose: Normal: 70-199 mg/dL Note: Random glucose >100 mg/dL is associated with increased risk for diabetes. Blood Peripheral blood specimen / Unknown Venipuncture / Unknown 12/01/2023 8:34 AM CDT 12/01/2023 8:47 AM CDT Ismael Stroud MD LAB BLOOD ORDERABLES Final Result Performing Organization Address City/[facility]/ZIP Co de Phone Number [address] [place] [address] * aPTT (12/01/2023 8:34 AM CDT) Activated PTT 31.1 24.1 - 35.5 second(s) 12/01/2023 9:13 AM [facility] Blood Peripheral blood specimen / Unknown Venipuncture / Unknown 12/01/2023 8:34 AM CDT 12/01/2023 8:47 AM CDT Ismael Stroud MD LAB BLOOD ORDERABLES Final Result Performing Organization Address City/[facility]/ZIP Co de Phone Number [address] [place] [address] * (ABNORMAL) Vitamin D 25OH (12/01/2023 8:34 AM CDT) Vitamin D 25 OH 27(L) 30 - 100 ng/mL 12/01/2023 12:18 PM CDT [facility] Blood Peripheral blood specimen / Unknown Venipuncture / Unknown 12/01/2023 8:34 AM CDT 12/01/2023 8:47 AM CDT Narrative [facility] - 12/01/2023 12:18 PM CDT Reference Range: Deficiency: <=20 ng/mL Insufficiency: 21-29 ng/mL Sufficiency: 30-100 ng/mL Potential toxicity: >100 ng/mL us Gt Gonzales MD LAB BLOOD ORDERABLES Final Result [facility] Unless otherwise noted, all lab tests performed by: Division of Pathology and Laboratory Medicine [address] [place] [id number] * Prothrombin Time with INR (12/01/2023 8:34 AM CDT) Pathologist [facility] Prothrombin Time 13.0 11.9 - 14.5 second(s) 12/01/2023 9:13 AM CDT [facility] International Normalization Ratio 1.02 0.87 - 1.12 12/01/2023 9:13 AM CDT [facility] Blood Peripheral blood specimen / Unknown Venipuncture / Unknown 12/01/2023 8:34 AM CDT 12/01/2023 8:47 AM CDT us Ismael Stroud MD LAB BLOOD ORDERABLES Final Result [facility] [address] [facility] [place] [address] * (ABNORMAL) TSH (12/01/2023 8:34 AM CDT) Thyroid Stimulating Hormone 0.03(L) 0.27 - 4.20 mcunit/mL 12/01/2023 9:29 AM [facility] Blood Peripheral blood specimen / Unknown Venipuncture / Unknown 12/01/2023 8:34 AM CDT 12/01/2023 8:47 AM CDT us Ismael Stroud MD LAB BLOOD ORDERABLES Final Result Performing Organization Address City/[facility]/ZIP Co de Phone Number [facility] [address] [place] [address]. [address] [place] [address] * (ABNORMAL) T4 (12/01/2023 8:34 AM CDT) Thyroxine 12.9(H) 4.5 - 11.7 mcg/dL 12/01/2023 9:42 AM CDT [facility] Blood Peripheral blood specimen / Unknown Venipuncture / Unknown 12/01/2023 8:34 AM CDT 12/01/2023 8:47 AM CDT us Ismael Stroud MD LAB BLOOD ORDERABLES Final Result Performing Organization Address City/[facility]/ZIP Co de Phone Number [facility] Unless otherwise noted, all lab tests performed by: Division of Pathology and Laboratory Medicine [address] [place] [phone] * Magnesium Level (12/01/2023 8:34 AM CDT) Only the most recent of2 resultswithin the time period is included. Magnesium Level 2.0 1.6 - 2.6 mg/dL 12/01/2023 9:17 AM CDT [facility] Blood Peripheral blood specimen / Unknown Venipuncture / Unknown 12/01/2023 8:34 AM CDT 12/01/2023 8:47 AM CDT us Ismael Stroud MD LAB BLOOD ORDERABLES Final Result [facility] [address] [place] [address]. [address] [place] [address] * (ABNORMAL) Hemoglobin A1c (12/01/2023 8:34 AM CDT) Only the most recent of2 resultswithin the time period is included. Hemoglobin A1c 8.2(H) 4.3 - 5.6 % 12/01/2023 9:19 AM CDT [facility] Blood Peripheral blood specimen / Unknown Venipuncture / Unknown 12/01/2023 8:34 AM CDT 12/01/2023 8:47 AM CDT Narrative [facility] - 12/01/2023 9:19 AM CDT HbA1c values >=6.5% are diagnostic of diabetes mellitus. Diagnosis should be confirmed by repeat testing. Therapeutic Action suggested: >8.0% HbA1c; Goal of therapy: <7.0% HbA1c us Ismael Stroud MD LAB BLOOD ORDERABLES Final Result Performing Organization Address City/[facility]/ZIP Co de Phone Number [facility] Unless otherwise noted, all lab tests performed by: Division of Pathology and Laboratory Medicine [address] [place] [id number] * EKG, 12-Lead (Scheduled) (12/01/2023) us Ismael Stroud MD ECG ORDERABLES Alondra l Result Performing Organization Address [facility] Co de Phone Number [facility] IECG * CT chest abdomen pelvis w contrast (11/02/2023 8:59 PM CDT) Anatomical Region Laterality Modality Abdomen, Pelvis, Chest Computed Tomography 11/02/2023 11:4 4 PM CDT Impressions 11/02/2023 11:54 PM CDT 1. Multifocal septated cystic lesion in the right adnexa with differentials including borderline ovarian neoplasms, cystoadenoma and cystadenocarcinoma. No CT measurable peritoneal lesions. 2. Indeterminate subcentimeter pulmonary nodules. In the absence of prior imaging, recommend close attention with short-term follow-up imaging to exclude pathology. ACTIONABLE ITEMS/RECOMMENDATIONS*: None. *An Actionable Finding is a finding that may be unrelated to the original reason for imaging but potentially actionable, meaning further investigation may be necessary. The Actionable Findings Vigilance Unit (AFVU) assists medical providers with responding to additional radiologic findings that are unexpected and potentially actionable. Narrative 11/02/2023 11:54 PM CDT FULL RESULT: Examination: CT CHEST ABDOMEN PELVIS W CONTRAST on 11/02/2023 8:59 PM. Clinical History: Mass of ovary. Indication: Neoplasm detection or diagnostic workup. Comparison: None. Technique: CT CHEST ABDOMEN PELVIS W CONTRAST. Findings: CHEST: Lungs and Pleura: Small subcentimeter bilateral pulmonary nodules are seen. For example, Indeterminate 6 mm left lower lobe nodule (series 4, image 43). Other examples include a subtle 5 mm right pulmonary nodules on image 51, 52, 55, 63. In the absence of prior imaging, recommend continued close monitoring with short- term follow-up as differentials include both benign and malignant etiology. No pleural effusion. Cardiomediastinum: The heart is normal in size. No pericardial effusion. Coronary artery calcifications seen. Lymph nodes: No lymphadenopathy. ABDOMEN AND PELVIS: Hepatobiliary: No suspicious hepatic lesion. No biliary dilatation. Status post cholecystectomy. Spleen: No splenomegaly. Pancreas: No mass or ductal dilatation. Adrenal Glands: No mass. Kidneys, Ureters, Bladder: No hydronephrosis. Renal cysts and subcentimeter, too small to characterize renal hypodensities seen. Gastrointestinal Tract: No obstruction. Pelvic Organs: There is a multiloculated septated cystic lesion in the right adnexa measuring 5.9 x 4.1 cm (image 245). Differentials include borderline ovarian neoplasms, cystoadenoma and cystadenocarcinoma. Histopathological correlation recommended. There is a smaller 2 cm septated cystic focus in the left adnexa (image 244). Peritoneum/Retroperitoneum: No ascites. No discrete CT measurable peritoneal neoplastic lesions. Lymph Nodes: No lymphadenopathy. MUSCULOSKELETAL: Degenerative changes with osteopenia noted in the bones, limiting assessment. However, note is made that the bones have been recently evaluated with MRI spine Procedure Note Aurora Valladares MD - 11/02/2023 FULL RESULT: Examination: CT CHEST ABDOMEN PELVIS W CONTRAST on 11/02/2023 8:59 PM. Clinical History: Mass of ovary. Indication: Neoplasm detection or diagnostic workup. Comparison: None. Technique: CT CHEST ABDOMEN PELVIS W CONTRAST. Findings: CHEST: Lungs and Pleura: Small subcentimeter bilateral pulmonary nodules areseen. For example, Indeterminate 6 mm left lower lobe nodule (series 4,image 43). Other examples include a subtle 5 mm right pulmonary nodules onimage 51, 52, 55, 63. In the absence of prior imaging, recommend continuedclose monitoring with short-term follow-up as differentials include bothbenign and malignant etiology. No pleural effusion. Cardiomediastinum: The heart is normal in size. No pericardial effusion.Coronary artery calcifications seen. Lymph nodes: No lymphadenopathy. ABDOMEN AND PELVIS: Hepatobiliary: No suspicious hepatic lesion. No biliary dilatation. Statuspost cholecystectomy. Spleen: No splenomegaly. Pancreas: No mass or ductal dilatation. Adrenal Glands: No mass. Kidneys, Ureters, Bladder: No hydronephrosis. Renal cysts andsubcentimeter, too small to characterize renal hypodensities seen. Gastrointestinal Tract: No obstruction. Pelvic Organs: There is a multiloculated septated cystic lesion in theright adnexa measuring 5.9 x 4.1 cm (image 245). Differentials includeborderline ovarian neoplasms, cystoadenoma and cystadenocarcinoma.Histopathological correlation recommended. There is a smaller 2 cmseptated cystic focus in the left adnexa (image 244). Peritoneum/Retroperitoneum: No ascites. No discrete CT measurableperitoneal neoplastic lesions. Lymph Nodes: No lymphadenopathy. MUSCULOSKELETAL: Degenerative changes with osteopenia noted in the bones, limitingassessment. However, note is made that the bones have been recentlyevaluated with MRI spine IMPRESSION: 1. Multifocal septated cystic lesion in the right adnexa withdifferentials including borderline ovarian neoplasms, cystoadenoma andcystadenocarcinoma. No CT measurable peritoneal lesions. 2. Indeterminate subcentimeter pulmonary nodules. In the absence of priorimaging, recommend close attention with short-term follow-up imaging toexclude pathology. ACTIONABLE ITEMS/RECOMMENDATIONS*: None. *An Actionable Finding is a finding that may be unrelated to the originalreason for imaging but potentially actionable, meaning furtherinvestigation may be necessary. The Actionable Findings Vigilance Unit(AFVU) assists medical providers with responding to additional radiologicfindings that are unexpected and potentially actionable. us Ismael RosalesWade Edgar Stroud MD IMG CT ORDERABLES Fi nal Result * US Pelvis Complete (11/02/2023 2:22 PM CDT) Anatomical Region Laterality Modality Pelvis Ultrasound 11/02/2023 2:26 PM CDT Impressions 11/02/2023 3:19 PM CDT 1. Right adnexal anechoic cystic structure, containing thin internal septations, without internal solid nodules or vascularity, probably benign in etiology, such as a hydrosalpinx or an ovarian cystadenoma. 2. Unremarkable postmenopausal left ovary. Possible small left hydrosalpinx 3. Right ovary not separately seen. ACTIONABLE ITEMS/RECOMMENDATIONS*: None. *An Actionable Finding is a finding that may be unrelated to the original reason for imaging but potentially actionable, meaning further investigation may be necessary. The Actionable Findings Vigilance Unit (AFVU) assists medical providers with responding to additional radiologic findings that are unexpected and potentially actionable. I personally reviewed these image(s) along with the resident's/fellow's interpretations, certify that if a procedure was performed I was physically present, and agree with the final report. Narrative 11/02/2023 3:19 PM CDT Examination: US TRANSVAGINAL, US PELVIS COMPLETE on 11/02/2023 2:22 PM. Clinical History: 73-year-old Mass of ovary. Indication: Mass in UT, OV, Adnexa. Comparison: None available. TECHNIQUE: Transvaginal and transabdominal grayscale and color Doppler ultrasound of the pelvis was performed. FINDINGS: Uterus: Surgically absent. Left Ovary: Measures 1.8 x 0.6 x 0.6 cm. In the left adnexa there is an anechoic, avascular, tubular structure measuring approximately 2.3 x 1.3 x 1.0 cm. No nodular solid components identified. Right Ovary: The right ovary is not seen. In the right adnexa there is an anechoic, avascular, cystic structure measuring approximately 4.5 x 2.9 x 3.6 cm. Thin internal septations (less than 3 mm) are noted. No nodular solid components identified. The right ovary not separately seen. Fluid: None. Procedure Note Jhonatan Bui MD - 11/02/2023 Examination: US TRANSVAGINAL, US PELVIS COMPLETE on 11/02/2023 2:22 PM. Clinical History: 73-year-old Mass of ovary. Indication: Mass in UT, OV, Adnexa. Comparison: None available. TECHNIQUE: Transvaginal and transabdominal grayscale and color Dopplerultrasound of the pelvis was performed. FINDINGS: Uterus: Surgically absent. Left Ovary: Measures 1.8 x 0.6 x 0.6 cm. In the left adnexa there is ananechoic, avascular, tubular structure measuring approximately 2.3 x 1.3 x1.0 cm. No nodular solid components identified. Right Ovary: The right ovary is not seen. In the right adnexa there is ananechoic, avascular, cystic structure measuring approximately 4.5 x 2.9 x3.6 cm. Thin internal septations (less than 3 mm) are noted. No nodularsolid components identified. The right ovary not separately seen. Fluid: None. IMPRESSION: 1. Right adnexal anechoic cystic structure, containing thin internalseptations, without internal solid nodules or vascularity, probably benignin etiology, such as a hydrosalpinx or an ovarian cystadenoma. 2. Unremarkable postmenopausal left ovary. Possible small lefthydrosalpinx 3. Right ovary not separately seen. ACTIONABLE ITEMS/RECOMMENDATIONS*: None. *An Actionable Finding is a finding that may be unrelated to the originalreason for imaging but potentially actionable, meaning furtherinvestigation may be necessary. The Actionable Findings Vigilance Unit(AFVU) assists medical providers with responding to additional radiologicfindings that are unexpected and potentially actionable. I personally reviewed these image(s) along with the resident's/fellow'sinterpretations, certify that if a procedure was performed I wasphysically present, and agree with the final report. us Angelic Leon APRN IMG US ORDERABLES Final Resul t * US Transvaginal (11/02/2023 2:22 PM CDT) Anatomical Region Laterality Modality Pelvis Ultrasound 11/02/2023 2:26 PM CDT Impressions 11/02/2023 3:19 PM CDT 1. Right adnexal anechoic cystic structure, containing thin internal septations, without internal solid nodules or vascularity, probably benign in etiology, such as a hydrosalpinx or an ovarian cystadenoma. 2. Unremarkable postmenopausal left ovary. Possible small left hydrosalpinx 3. Right ovary not separately seen. ACTIONABLE ITEMS/RECOMMENDATIONS*: None. *An Actionable Finding is a finding that may be unrelated to the original reason for imaging but potentially actionable, meaning further investigation may be necessary. The Actionable Findings Vigilance Unit (AFVU) assists medical providers with responding to additional radiologic findings that are unexpected and potentially actionable. I personally reviewed these image(s) along with the resident's/fellow's interpretations, certify that if a procedure was performed I was physically present, and agree with the final report. Narrative 11/02/2023 3:19 PM CDT Examination: US TRANSVAGINAL, US PELVIS COMPLETE on 11/02/2023 2:22 PM. Clinical History: 73-year-old Mass of ovary. Indication: Mass in UT, OV, Adnexa. Comparison: None available. TECHNIQUE: Transvaginal and transabdominal grayscale and color Doppler ultrasound of the pelvis was performed. FINDINGS: Uterus: Surgically absent. Left Ovary: Measures 1.8 x 0.6 x 0.6 cm. In the left adnexa there is an anechoic, avascular, tubular structure measuring approximately 2.3 x 1.3 x 1.0 cm. No nodular solid components identified. Right Ovary: The right ovary is not seen. In the right adnexa there is an anechoic, avascular, cystic structure measuring approximately 4.5 x 2.9 x 3.6 cm. Thin internal septations (less than 3 mm) are noted. No nodular solid components identified. The right ovary not separately seen. Fluid: None. Procedure Note Jhonatan Bui MD - 11/02/2023 Examination: US TRANSVAGINAL, US PELVIS COMPLETE on 11/02/2023 2:22 PM. Clinical History: 73-year-old Mass of ovary. Indication: Mass in UT, OV, Adnexa. Comparison: None available. TECHNIQUE: Transvaginal and transabdominal grayscale and color Dopplerultrasound of the pelvis was performed. FINDINGS: Uterus: Surgically absent. Left Ovary: Measures 1.8 x 0.6 x 0.6 cm. In the left adnexa there is ananechoic, avascular, tubular structure measuring approximately 2.3 x 1.3 x1.0 cm. No nodular solid components identified. Right Ovary: The right ovary is not seen. In the right adnexa there is ananechoic, avascular, cystic structure measuring approximately 4.5 x 2.9 x3.6 cm. Thin internal septations (less than 3 mm) are noted. No nodularsolid components identified. The right ovary not separately seen. Fluid: None. IMPRESSION: 1. Right adnexal anechoic cystic structure, containing thin internalseptations, without internal solid nodules or vascularity, probably benignin etiology, such as a hydrosalpinx or an ovarian cystadenoma. 2. Unremarkable postmenopausal left ovary. Possible small lefthydrosalpinx 3. Right ovary not separately seen. ACTIONABLE ITEMS/RECOMMENDATIONS*: None. *An Actionable Finding is a finding that may be unrelated to the originalreason for imaging but potentially actionable, meaning furtherinvestigation may be necessary. The Actionable Findings Vigilance Unit(AFVU) assists medical providers with responding to additional radiologicfindings that are unexpected and potentially actionable. I personally reviewed these image(s) along with the resident's/fellow'sinterpretations, certify that if a procedure was performed I wasphysically present, and agree with the final report. Ismael Stroud MD IMG US ORDERABLES Fi nal Result * Glucose, Random (10/20/2023 12:09 PM CDT) Glucose Random 150 70 - 199 mg/dL 10/20/2023 1:17 PM CDT [facility] Blood Peripheral blood specimen / Unknown Venipuncture / Unknown 10/20/2023 12:09 PM CDT 10/20/2023 12:14 PM CDT Narrative [facility] - 10/20/2023 1:17 PM CDT Effective 12/23/15, the glucose reference intervals have been updated based on [place] [employer] guidelines (Standards of Medical Care in Diabetes 2016. Diabetes Care 2016; 39: S13-S22). Fasting blood glucose: Normal: 70-99 mg/dL Impaired fasting glucose (increased risk for diabetes or pre-diabetes): 100-125 mg/dL Diabetes mellitus: >/=126 mg/dL Random blood glucose: Normal: 70-199 mg/dL Note: Random glucose >100 mg/dL is associated with increased risk for diabetes us Angelicelisabet Leon TRENT LAB BLOOD ORDERABLES Final Re sult [facility] Unless otherwise noted, all lab tests performed by: Division of Pathology and Laboratory Medicine [address] [place] [id number] * HIV 1/2 Antigen/Antibody, Fourth Gen W/RFL (10/20/2023 12:09 PM CDT) [facility] HIV Ag/Ab, 4TH Gen NON-REACT SAVANNAH NON-REACT SAVANNAH 10/22/2023 12:40 PM CDT [facility] Comment: HIV-1 antigen and HIV-1/HIV-2 antibodies were not detected. There is no laboratory evidence of HIV infection. PLEASE NOTE: This information has been disclosed to you from records whose confidentiality may be protected by state law. If your state requires such protection, then the state law prohibits you from making any further disclosure of the information without the specific written consent of the person to whom it pertains, or as otherwise permitted by law. A general authorization for the release of medical or other information is NOT sufficient for this purpose. For additional information please refer to http://education.Finanzchef24.[employer]ferTaxi/faq/PJK625 (This link is being provided for informational/ educational purposes only.) The performance of this assay has not been clinically validated in patients less than 2 years old. Blood Peripheral blood specimen / Unknown Venipuncture / Unknown 10/20/2023 12:09 PM CDT 10/20/2023 12:15 PM CDT Narrative [facility] - 10/22/2023 12:40 PM CDT Performing Organization Information: [facility] [address] [place] [address] Clifnat Edward Galarza Angelic Leon APRN LAB BLOOD ORDERABLES Final Re sult [facility]ONTELONGO) * Fractionated Bilirubin (10/20/2023 12:09 PM CDT) [facility] Bilirubin Direct 0.2 0.0 - 0.3 mg/dL 10/20/2023 1:17 PM CDT [facility] Comment:Indocyanine Green (I CG) may cause falsely elevated bilirubin results. Total and direct bilirubin must not be measured from samples containing indocyanine green. Bilirubin Indirect 0.3 0.0 - 0.9 mg/dL 10/20/2023 1:17 PM CDT [facility] Bilirubin Total 0.5 0.0 - 1.2 mg/dL 10/20/2023 1:17 PM CDT [facility] Comment:Indocyanine Green (I CG) may cause falsely elevated bilirubin results. Total and direct bilirubin must not be measured from samples containing indocyanine green. False elevation of total bilirubin can be seen in patients with IgG concentrations above 28 g/L. Blood Peripheral blood specimen / Unknown Venipuncture / Unknown 10/20/2023 12:09 PM CDT 10/20/2023 12:14 PM CDT Angelic Leon APRN LAB BLOOD ORDERABLES Final Re sult [facility] Unless otherwise noted, all lab tests performed by: Division of Pathology and Laboratory Medicine [address] [place] [phone] * Hepatitis C Virus Antibody (10/20/2023 12:09 PM CDT) [facility] HCVAb. Non Reactive Non Reactive 10/20/2023 2:08 PM CDT [facility] Blood Peripheral blood specimen / Unknown Venipuncture / Unknown 10/20/2023 12:09 PM CDT 10/20/2023 12:14 PM CDT Narrative [facility] - 10/20/2023 2:08 PM CDT Antibody detection in the immunocompromised and immunosuppressed population may be delayed or absent entirely. Therefore serial testing, correlation with other clinical findings, and supplemental testing (if available) should be taken into consideration when interpreting the results. Angelic Edward NEWMAN LAB BLOOD ORDERABLES Final Re sult Performing Organization Address [facility]/ZIP Co de Phone Number [facility] Unless otherwise noted, all lab tests performed by: Division of Pathology and Laboratory Medicine [address] [place] [id number] * Hepatitis B Surface Ag (10/20/2023 12:09 PM CDT) [facility] HBsAg. Non Reactive Non Reactive 10/20/2023 2:08 PM CDT [facility] Blood Peripheral blood specimen / Unknown Venipuncture / Unknown 10/20/2023 12:09 PM CDT 10/20/2023 12:14 PM CDT Angelic Leon APRN LAB BLOOD ORDERABLES Final Re sult Performing Organization Address [facility] Co de Phone Number [facility] Unless otherwise noted, all lab tests performed by: Division of Pathology and Laboratory Medicine [address] [place] [id number] * CA 125 (10/20/2023 12:09 PM CDT) [facility] Cancer Antigen 125 14.8 <=38.0 U/mL 10/20/2023 1:17 PM CDT [facility] Blood Peripheral blood specimen / Unknown Venipuncture / Unknown 10/20/2023 12:09 PM CDT 10/20/2023 12:14 PM CDT Narrative [facility] - 10/20/2023 1:17 PM CDT Results greater than 11,500.0 U/mL may not be reliable due to matrix effect with extended dilution as it exceeds the loan broker's recommended limit. Caution should be exercised when interpreting such values and done in conjunction with clinical context. This test is measured by electrochemiluminescence immunoassay on Kunal Arash immunoassay analyzers. Results obtained in different methods are not interchangeable. Reference intervals are not available for male patients. Results should be interpreted in conjunction with clinical context. Angelic Leon APRN LAB BLOOD ORDERABLES Final Re sult Performing Organization Address City/[facility]/ZIP Co de Phone Number [facility] Unless otherwise noted, all lab tests performed by: Division of Pathology and Laboratory Medicine [address] [place] [id number] * BUN (10/20/2023 12:09 PM CDT) Pathologist [facility] BUN 23 6 - 23 mg/dL 10/20/2023 1:17 PM CDT [facility] Blood Peripheral blood specimen / Unknown Venipuncture / Unknown 10/20/2023 12:09 PM CDT 10/20/2023 12:14 PM CDT Angelic Leon APRN LAB BLOOD ORDERABLES Final Re sult Performing Organization Address [facility] Co de Phone Number [facility] Unless otherwise noted, all lab tests performed by: Division of Pathology and Laboratory Medicine [address] [place] [id number] * ALT (10/20/2023 12:09 PM CDT) Pathologist [facility] ALT 10 <=33 U/L 10/20/2023 1:1 7 PM CDT [facility] Blood Peripheral blood specimen / Unknown Venipuncture / Unknown 10/20/2023 12:09 PM CDT 10/20/2023 12:14 PM CDT Result [facility] Angelic Leon APRN LAB BLOOD ORDERABLES Final Re sult Performing Organization Address [facility] Co de Phone Number [facility] Unless otherwise noted, all lab tests performed by: Division of Pathology and Laboratory Medicine [address] [place] [id number] * Aspartate Aminotransferase (10/20/2023 12:09 PM CDT) Pathologist [facility] AST 19 <=32 U/L 10/20/2023 1:1 7 PM CDT [facility] Blood Peripheral blood specimen / Unknown Venipuncture / Unknown 10/20/2023 12:09 PM CDT 10/20/2023 12:14 PM CDT Angelic Leon APRN LAB BLOOD ORDERABLES Final Re sult [facility] Unless otherwise noted, all lab tests performed by: Division of Pathology and Laboratory Medicine [address] [place] [id number] * Creatinine (10/20/2023 12:09 PM CDT) Creatinine 0.91 0.51 - 0.95 mg/dL 10/20/2023 1:17 PM CDT [facility] eGFR 66 >=60 mL/min/1.7 3 sq. m 10/20/2023 1:17 PM CDT [facility] Comment: The eGFRcr is calculated with the 2020 CKD-EPI creatinine equation using creatinine, patient's age, and sex for adults 18 years of age and older. Other factors, especially muscle mass, may affect accuracy and need to be considered. According to the Kidney Disease: Improving Global Outcomes (KDIGO) CKD Work Group 2012 Clinical Practice Guideline, chronic kidney disease (CKD) is defined as the abnormalities of kidney structure or function, present for more than 3 months, with implications for health. CKD should be classified by cause, GFR category, and albuminuria category. KDIGO guidelines provide the following GFR categories. Stage / Description / GFR mL/min/1.73 m2: G1* / Normal or high / >= 90 G2* / Mildly decreased / 60-89 G3a / Mildly to moderately decreased / 45-59 G3b / Moderately to severely decreased / 30-44 G4 / Severely decreased / 15-29 G5 / Kidney failure / <15 *In the absence of evidence of kidney damage, neither G1 nor G2 fulfill criteria for CKD. Blood Peripheral blood specimen / Unknown Venipuncture / Unknown 10/20/2023 12:09 PM CDT 10/20/2023 12:14 PM CDT us Angelic Leon APRN LAB BLOOD ORDERABLES Final Re sult Performing Organization Address City/[facility]/ZIP Co de Phone Number [facility] Unless otherwise noted, all lab tests performed by: Division of Pathology and Laboratory Medicine [address] [place] [id number] * Albumin Level (10/20/2023 12:09 PM CDT) Albumin Level 4.3 3.5 - 5.2 gm/dL 10/20/2023 1:17 PM CDT [facility] Blood Peripheral blood specimen / Unknown Venipuncture / Unknown 10/20/2023 12:09 PM CDT 10/20/2023 12:14 PM CDT Angelic Edward NEWMAN LAB BLOOD ORDERABLES Final Re sult Performing Organization Address [facility] Co de Phone Number [facility] Unless otherwise noted, all lab tests performed by: Division of Pathology and Laboratory Medicine [address] [place] [phone] * (ABNORMAL) Electrolyte Panel (10/20/2023 12:09 PM CDT) Sodium Level 139 136 - 145 mmol/L 10/20/2023 1:17 PM CDT [facility] Potassium Level 4.7(H) 3.4 - 4.5 mmol/L 10/20/2023 1:17 PM CDT [facility] Chloride 103 98 - 107 mmol/L 10/20/2023 1:17 PM CDT [facility] CO2 26 22 - 29 mmol/L 10/20/2023 1:17 PM CDT [facility] Anion Gap 10 4 - 14 mmol/L 10/20/2023 1:17 PM CDT [facility] Blood Peripheral blood specimen / Unknown Venipuncture / Unknown 10/20/2023 12:09 PM CDT 10/20/2023 12:14 PM CDT Angelic Edward NEWMAN LAB BLOOD ORDERABLES Final Re sult [facility] Unless otherwise noted, all lab tests performed by: Division of Pathology and Laboratory Medicine [address] [place] [address] * Confirm ABORh (10/20/2023 12:08 PM CDT) ABORh Confirm A POS 10/20/2023 11:55 AM CDT [facility] Blood Peripheral blood specimen / Unknown Venipuncture / Unknown 10/20/2023 12:08 PM CDT 10/20/2023 12:09 PM CDT Angelic Edward NEWMAN BLOOD BANK TEST ORDERABLES Fi nal Result [facility] [address] [facility] [id number] [place] [address] * OSI CT Abdomen and Pelvis (08/11/2023 11:40 PM CDT) Narrative Systemgenerated, Documentation - 11/13/2023 11:40 PM CDT Study acquired at another institution. For comparison only. No [facility] originated interpretation requested or available. Ismael Stroud MD IMG OUTSIDE IMAGE OR DERABLES Final Result after 04/27/2023 Insurance [employer] MEDICARE PPO [employer] MED[employer]ARE PPO Care Teams Clinical Documentation Improvement Specialist Relationship Specialty Start Date End Date Hua Hawthorne MD [address] [place] [phone] [email or web address] PCP - External Primary Care Provider Internal Medicine 10/12/23 Ismael Kahn MD [address] [place] [phone] [email or web address] PCP - General Gynecological Oncology 10/18/23 Angel Mathew MD [id number] [place] [phone] PCP - External Follow Up A Urology 10/19/23 Marimar Garcia RN [address] [place] [phone] [email or web address] Intake Nurse Navigator Nursing 10/10/23 10/23/23 Bee Gonzales RN [address] [place] [id number] [email or web address] Treatment Nurse Navigator Nursing 10/24/23 01/14/24 Gt Gonzales MD [address] [place] [address], [place] [address] [email or web address] Consulting Physician Internal Medicine 12/01/23
[2024-04-26] MEDS ORDERED: ASPIRIN 81 MG CHEWABLE TABLET ONE (10:14)
[2024-04-26] MEDS ORDERED: FAMOTIDINE 20 MG/2 ML VIAL IV ONE (10:14)
[2024-04-26] MEDS ORDERED: NA CHLORIDE 0.9% 1,000 ML ONE (10:14)
[2024-04-26 10:33] LABS: Absolute Basophils 0.1 K/uL (0-0.5); Hemoglobin 11.4 g/dL (12.0-15.0); Red Cell Distribution Width 16.9 % (12.1-15.2)
[2024-04-26 10:36] LABS: Absolute Eosinophils 0.1 K/uL (0-0.5); Absolute Lymphocytes (CBC) 1.9 K/uL (0.7-4.9); Absolute Neutrophil 8.1 K/uL (1.8-8.0); Basophils % 0.8 % (0-1.3); Eosinophils % 0.8 % (0-4.4); Hematocrit 35.1 % (36.0-45.0); Lymphocytes % 16.7 % (15.3-44.8); MCH 25.1 pg (27.0-35.0); MCHC 32.4 g/dL (32.0-36.0); MCV 77.5 fL (80-100); MPV 7.4 fL (7.6-11.3); Monocytes % 8.9 % (3.3-12.3); Neutrophils % 72.8 % (41.7-73.7); Platelets 328 thou/uL (152-406); RBC Red Blood Cell Count 4.53 M/uL (3.86-4.86)
[2024-04-26] MEDS ORDERED: IPRATROPIUM BROM 0.5MG/2.5ML ONE (10:41)
[2024-04-26] MEDS ORDERED: LEVALBUTEROL 1.25 MG/3 ML NEB ONE (10:41)
[2024-04-26 10:49] LABS: ALT/SGPT < 14 U/L (13-56); AST/SGOT 12 U/L (15-37); Albumin 3.3 g/dL (3.4-5.0); Albumin/Globulin Ratio 0.8 (1.1-1.8); Alkaline Phosphatase 101 U/L (45-117); Anion Gap 11.3 mEq/L (5.0-15.0); BUN Blood Urea Nitrogen 31 mg/dL (7-18); Bicarbonate 26 mEq/L (21-32); Bilirubin Direct 0.3 mg/dL (0-0.2); Bilirubin Indirect, Calculated 0.5 mg/dL (0.2-0.8); Bilirubin Total 0.8 mg/dL (0.2-1.0); Glomerular Filtration Rate 41 ml/min (=/>90); Glucose Level 223 mg/dL (74-106); Lipase 11 U/L (13-75); Magnesium 1.9 mg/dL (1.6-2.4); NT PRO-BNP 102 pg/mL (<450); Potassium 4.3 mEq/L (3.5-5.1); Protein, Total 7.3 g/dL (6.4-8.2); Sodium Level 135 mEq/L (136-145)
[2024-04-26 11:33] LABS: PT Prothrombin Time 12.3 SECONDS (9.4-12.5); Protime INR 1.1
--- NOTE | 2024-04-26 12:10 | RAD REPORT ---
EXAMINATION: CTA CHEST PE CLINICAL INDICATION: Chest pain TECHNIQUE: 100 cc 370 Isovue administered intravenously. This examination was performed according to an angiographic protocol with 3D post-processing. This involves 3D reconstructions, MIPs, volume rendered images and/or shaded surface rendering. One or more of the following dose reduction techniqu es were used: Automated exposure control, adjustment of the mA and/or kV according to patient size, and/or iterative reconstruction. Unless otherwise specified, incidental findings do not require dedic ated imaging follow-up. [id number]. COMPARISON: 2021 FINDINGS: A pulmonary embolus is not seen. An aortic aneurysm not noted. No pleural effusion. No pericardial effusion. The heart lies slightly to the right of midline. Invers ion of the chambers not seen. 7 mm left lower lobe nodule equivocally mildly enlarged. Mild left lower lobe atelectasis IMPRESSION: No evidence of a pulmonary embolism 7 mm left lower lobe nodule is equivocally mildly enlarged from 2021. Follow-up CT chest in 3-6 month s recommended for reevaluation.
--- NOTE | 2024-04-26 12:11 | RAD REPORT ---
Procedure: Chest Single View HISTORY: Cough COMPARISON: 2021 FINDINGS: Mild left basilar atelectasis. No significant pleural effusion noted. The heart is normal size. Heart mildly to the right of midline. IMPRESSION: Mild basilar left atelectasis
[2024-04-26] MEDS ORDERED: MORPHINE 4 MG/ML SYR ONE (13:03)
[2024-04-26] MEDS ORDERED: ONDANSETRON 4 MG/2 ML VIAL ONE (13:03)
[2024-04-26] MEDS ORDERED: Levofloxacin500mg IV 500 MG/100 ML BAG IV ONE (13:03)
[2024-04-26] MEDS ORDERED: ENOXAPARIN 100 MG/ML SYR SQ ONE (13:03)
--- NOTE | 2024-04-26 14:27 | ER ---
Nurse's Notes [facility] Name: Faviola Balderas Age: 74 yrs Sex: Female : 1950 Arrival Date: 04/26/2024 Time: 09:55 Bed 4 Private MD: Diagnosis: Chest pain on breathing;Chest pain, unspecified-DEXTROCARDIA;Atelectasis;Unspecified kidney failure-INSUFFICENCY;Pleurisy;Hypercalcemia;Anemia, unspecified;Elevated white blood cell count Presentation: 04/26 10:13 Chief complaint: Patient states: Chest discomfort when taking a deep breath x 2 days. ss Described as, "tight". Coronavirus screen: Client denies travel out of the [place] in the last 14 days. Ebola Screen: Patient denies exposure to infectious person. Patient denies travel to an Ebola-affected area in the 21 days before illness onset. Initial Sepsis Screen: Does the patient meet any 2 criteria? No. Patient's initial sepsis screen is negative. Does the patient have a suspected source of infection? No. Patient's initial sepsis screen is negative. Risk Assessment: Do you want to hurt yourself or someone else? Patient reports no desire to harm self or others. Onset of symptoms was April 24, 2024. 10:13 Method Of Arrival: Ambulatory ss 10:13 Acuity: MORIAH 3 ss Triage Assessment: 10:15 General: Appears in no apparent distress. Behavior is cooperative, appropriate for age, bp anxious. Pain: Complains of pain in chest. EENT: No deficits noted. Neuro: No deficits noted. Cardiovascular: Rhythm is sinus rhythm. Respiratory: No deficits noted. GI: No signs and/or symptoms were reported involving the gastrointestinal system. : No signs and/or symptoms were reported regarding the genitourinary system. Derm: No deficits noted. Musculoskeletal: No deficits noted. Historical: - Allergies: 10:14 Bactrim; ss 10:14 Macrobid; ss 10:14 NITROFURAN DERIVATIVES; ss 10:14 Sulfa (Sulfonamide Antibiotics); ss - PMHx: 10:14 Asthma; Dextrocardia; Diabetes - IDDM; glucaoma; Hypertension; Hypothyroidism; ss tahlassemia; - PSHx: 10:14 bladder suspension; Cholecystectomy; hysterectomy; Thyroidectomy; done by radiation ss capsule; Tonsillectomy; Screenin:19 [facility] ED Fall Risk Assessment (Adult) History of falling in the last 3 months, bp including since admission No falls in past 3 months (0 pts) Confusion or Disorientation No (0 pts) Intoxicated or Sedated No (0 pts) Impaired Gait No (0 pts) Mobility Assist Device Used No (0 pt) Altered Elimination No (0 pt) Score/Fall Risk Level 0 - 2 = Low Risk Oriented to surroundings. Abuse screen: Denies threats or abuse. Denies injuries from another. Nutritional screening: No deficits noted. Tuberculosis screening: No symptoms or risk factors identified. Assessment: 10:45 Reassessment: PHLEBOTOMY CONTACTED FOR REMAINING BLOOD DRAW. bp 14:12 Reassessment: Patient appears in no apparent distress at this time. Patient is alert, bp oriented x 3, equal unlabored respirations, skin warm/dry/pink. Vital Signs: 10:13 BP 152 / 59; Pulse 69; Resp 17; Pulse Ox 99% on R/A; Weight 92.08 kg; Height 5 ft. 2 ss in. ; Pain 0/10; 10:15 Temp 97.9(O); ss 12:00 BP 143 / 72; Pulse 67; Resp 16; Pulse Ox 100% ; bp 14:11 BP 140 / 68; Pulse 66; Resp 16; Pulse Ox 100% ; bp 10:13 Body Mass Index 37.13 (92.08 kg, 157.48 cm) ss 10:13 Pain Scale: Adult ss ED Course: 09:58 Patient arrived in ED. mr 10:05 Watson Schmitt, LAURYN is Primary Nurse. bp 10:05 José Luis Kaufman MD is Attending Physician. regi 10:14 Triage completed. ss 10:14 Arm band placed on right wrist. ss 10:25 Initial lab(s) drawn, by ca, sent to lab. EKG done, by ED staff, reviewed by José Luis Kaufman MD. Inserted saline lock: 22 gauge in left forearm, using aseptic technique. Blood collected. Flushed with 10 mL NS. 10:42 XRAY Chest (1 view) In Process Unspecified. EDMS 11:19 Patient has correct armband on for positive identification. Provided Education on: N/A. bp Client placed on continuous cardiac and pulse oximetry monitoring. NIBP monitoring applied. nuclear monitoring technician on. Pulse ox on. 11:19 Inserted saline lock: 22 gauge in right forearm, using aseptic technique. Blood bp collected. Flushed with 10 mL NS. 11:42 CT Chest For PE Angio In Process Unspecified. EDMS 13:45 Inserted saline lock: 22 gauge in left antecubital area, using aseptic technique. Blood ss collected. Flushed with 10 mL NS. 14:26 Hua Hawthorne MD is Hospitalizing Provider. regi Administered Medications: 10:37 Drug: Famotidine IVP 20 mg IVP once; dilute with 10 mL 0.9% NaCl; give over 2 minutes bp Route: IVP; Site: left forearm; 13:31 Follow up: Response: No adverse reaction me1 10:37 Drug: Aspirin PO Chewable Tablet 162 mg PO once Route: PO; bp 13:32 Follow up: Response: No adverse reaction me1 10:37 Drug: NS 0.9% IV 1000 ml IV at 125 ml/hr continuous Route: IV; Rate: 125 ml/hr; Site: bp left forearm; 10:47 Drug: Levalbuterol Inhalation 1.25 mg Inhalation once Route: Inhalation; bp 13:32 Follow up: Response: No adverse reaction; Wheezing diminished me1 10:47 Drug: Ipratropium Inhalation Aerosol 0.5 mg Inhalation once Route: Inhalation; bp 13:33 Follow up: Response: No adverse reaction; Wheezing diminished me1 13:30 Drug: Enoxaparin Sub-Q 1 mg/kg Sub-Q once Route: Sub-Q; Site: abdomen; me1 13:33 Follow up: Response: No adverse reaction me1 13:47 Drug: morphine IVP or IV 2 mg IVP once over 4 mins Route: IVP; Infused Over: 4 mins; me1 Site: left antecubital; 13:47 Drug: morphine IVP or IV 2 mg IVP once over 4 mins Route: IVP; Infused Over: 4 mins; me1 Site: left antecubital; 13:47 Drug: Ondansetron IVP 4 mg IVP once; over 2 minutes Route: IVP; Site: left antecubital; me1 13:47 Drug: levofloxacin IVPB 500 mg 100 ml IVPB once over 60 mins Volume: 100 ml; Route: me1 IVPB; Infused Over: 60 mins; Site: left antecubital; 14:32 Drug: morphine IVP or IV 2 mg IVP once over 4 mins Route: IVP; Infused Over: 4 mins; ko1 Site: left antecubital; 14:47 Follow up: Response: No adverse reaction; Pain is decreased ko1 14:39 Drug: Mucomyst - Acetylcysteine PO 600 mg PO once Route: PO; bp Outcome: 14:26 Decision to Hospitalize by Provider. regi 16:35 Patient left the ED. bp Signatures: Dispatcher [employer] EDMS José Luis Kaufman MD MD cha Rivera, Mary, [facility] mr Khushboo Alvarenga, RN RN ss Watson Schmitt RN RN bp Radha Jose mb4 Nia Shell RN RN ko1 Belkys Artis RN RN me1
--- NOTE | 2024-04-26 14:27 | EDPHYS ---
Physician Documentation [facility] Name: Faviola Balderas Age: 74 yrs Sex: Female : 1950 Arrival Date: 04/26/2024 Time: 09:55 Bed 4 Private MD: UDAY Physician José Luis Kaufman HPI: 04/26 14:20 This 74 yrs old Female presents to ER via Ambulatory with complaints of Chest regi Pain. 14:20 The patient or guardian reports chest pain that is located primarily in the anterior regi chest wall, left. Onset: 3 day(s) ago. The pain does not radiate. Associated signs and symptoms: Pertinent positives: cough, shortness of breath. The chest pain is described as sharp. Modifying factors: The symptoms are alleviated by remaining still, the symptoms are aggravated by deep breath. Historical: - Allergies: 10:14 Bactrim; ss 10:14 Macrobid; ss 10:14 NITROFURAN DERIVATIVES; ss 10:14 Sulfa (Sulfonamide Antibiotics); ss - PMHx: 10:14 Asthma; Dextrocardia; Diabetes - IDDM; glucaoma; Hypertension; Hypothyroidism; ss tahlassemia; - PSHx: 10:14 bladder suspension; Cholecystectomy; hysterectomy; Thyroidectomy; done by radiation ss capsule; Tonsillectomy; ROS: 14:22 Constitutional: Negative for fever, chills, and weight loss, Eyes: Negative for injury, regi pain, redness, and discharge, ENT: Negative for injury, pain, and discharge, Neck: Negative for injury, pain, and swelling, Abdomen/GI: Negative for abdominal pain, nausea, vomiting, diarrhea, and constipation, Back: Negative for injury and pain, : Negative for injury, bleeding, discharge, and swelling, MS/Extremity: Negative for injury and deformity, Skin: Negative for injury, rash, and discoloration, Neuro: Negative for headache, weakness, numbness, tingling, and seizure, Psych: Negative for depression, anxiety, suicide ideation, homicidal ideation, and hallucinations, Allergy/Immunology: Negative for hives, rash, and allergies, Endocrine: Negative for neck swelling, polydipsia, polyuria, polyphagia, and marked weight changes, Hematologic/Lymphatic: Negative for swollen nodes, abnormal bleeding, and unusual bruising, 14:22 Cardiovascular: Positive for chest pain, of the chest, 14:22 Respiratory: Positive for pleurisy, of the left lateral posterior chest and left lateral anterior chest, 14:22 MS/extremity: Negative for acute changes, swelling, tenderness, Exam: 14:22 Constitutional: This is a well developed, well nourished patient who is awake, alert, regi and in no acute distress. Head/Face: Normocephalic, atraumatic. Eyes: Pupils equal round and reactive to light, extra-ocular motions intact. Lids and lashes normal. Conjunctiva and sclera are non-icteric and not injected. Cornea within normal limits. Periorbital areas with no swelling, redness, or edema. ENT: Nares patent. No nasal discharge, no septal abnormalities noted. Tympanic membranes are normal and external auditory canals are clear. Oropharynx with no redness, swelling, or masses, exudates, or evidence of obstruction, uvula midline. Mucous membranes moist. Neck: Trachea midline, no thyromegaly or masses palpated, and no cervical lymphadenopathy. Supple, full range of motion without nuchal rigidity, or vertebral point tenderness. No Meningismus. Chest/axilla: Normal chest wall appearance and motion. Nontender with no deformity. No lesions are appreciated. Cardiovascular: Regular rate and rhythm with a normal S1 and S2. No gallops, murmurs, or rubs. Normal PMI, no JVD. No pulse deficits. Respiratory: Lungs have equal breath sounds bilaterally, clear to auscultation and percussion. No rales, rhonchi or wheezes noted. No increased work of breathing, no retractions or nasal flaring. Abdomen/GI: Soft, non-tender, with normal bowel sounds. No distension or tympany. No guarding or rebound. No evidence of tenderness throughout. Back: No spinal tenderness. No costovertebral tenderness. Full range of motion. Skin: Warm, dry with normal turgor. Normal color with no rashes, no lesions, and no evidence of cellulitis. MS/ Extremity: Pulses equal, no cyanosis. Neurovascular intact. Full, normal range of motion. Neuro: Awake and alert, GCS 15, oriented to person, place, time, and situation. Cranial nerves II-XII grossly intact. Motor strength 5/5 in all extremities. Sensory grossly intact. Cerebellar exam normal. Normal gait. Psych: Awake, alert, with orientation to person, place and time. Behavior, mood, and affect are within normal limits. 14:22 ECG was reviewed by the Attending Physician. 14:24 ECG was reviewed by the Attending Physician. [facility] Vital Signs: 10:13 BP 152 / 59; Pulse 69; Resp 17; Pulse Ox 99% on R/A; Weight 92.08 kg; Height 5 ft. 2 ss in. ; Pain 0/10; 10:15 Temp 97.9(O); ss 12:00 BP 143 / 72; Pulse 67; Resp 16; Pulse Ox 100% ; bp 14:11 BP 140 / 68; Pulse 66; Resp 16; Pulse Ox 100% ; bp 10:13 Body Mass Index 37.13 (92.08 kg, 157.48 cm) ss 10:13 Pain Scale: Adult ss MDM: 10:05 Medical Screening Exam initiated regi 14:24 HEART Score: History: Slightly Suspicious (0), ECG: Non specific repolarization regi disturbance / LBTB / PM (1), Age: > or = 65 years (2), Risk Factors: > or = 3 Risk factors for atherosclerotic disease (2), [Hypercholesterolemia] [Hypertension] [DM] [+ Family HX] [Obesity] Troponin: < or = 1 x Normal Limit (0), Total Score = 5. The patient was given aspirin in the Emergency Department. Data reviewed: vital signs, nurses notes, lab test result(s), EKG, radiologic studies, plain films. 04/26 10:06 Order name: Basic Metabolic Panel; Complete Time: 12:33 [facility] 04/26 10:06 Order name: CBC with Diff; Complete Time: 12:33 [facility] 04/26 10:06 Order name: LFT's; Complete Time: 12:33 [facility] 04/26 10:06 Order name: Magnesium; Complete Time: 12:33 [facility] 04/26 10:06 Order name: NT PRO-BNP; Complete Time: 12:33 [facility] 04/26 10:06 Order name: PT-INR; Complete Time: 12:33 [facility] 04/26 10:06 Order name: Troponin HS; Complete Time: 12:33 [facility] 04/26 10:06 Order name: Lipase; Complete Time: 12:33 [facility] 04/26 10:06 Order name: Urinalysis w/ reflexes 04/26 12:49 Order name: Blood Culture Adult (2) [facility] 04/26 12:49 Order name: Lactate w/ 2H reflex if indic.; Complete Time: 14:17 [facility] 04/26 16:29 Order name: Glucose, Ancillary Testing [facility] 04/26 10:06 Order name: XRAY Chest (1 view); Complete Time: 12:33 [facility] 04/26 10:13 Order name: CT Chest For PE Angio; Complete Time: 12:33 [facility] 04/26 14:16 Order name: INCENTIVE SPIROMETRY [facility] 04/26 14:22 Order name: EKG; Complete Time: 14:22 [facility] 04/26 14:41 Order name: CONS Physician Consult [facility] 04/26 10:06 Order name: Cardiac monitoring; Complete Time: 10:12 [facility] 04/26 10:06 Order name: EKG - Nurse/Tech; Complete Time: 10:12 [facility] 04/26 10:06 Order name: IV Saline Lock; Complete Time: 10:25 [facility] 04/26 10:06 Order name: Labs collected and sent; Complete Time: 10:48 [facility] 04/26 10:06 Order name: O2 Per Protocol; Complete Time: 10:12 [facility] 04/26 10:06 Order name: O2 Sat Monitoring; Complete Time: 10:12 [facility] 04/26 12:31 Order name: EKG - Nurse/Tech; Complete Time: 12:49 04/26 14:22 Order name: EKG - Nurse/Tech; Complete Time: 14:30 [facility] EC:22 Rate is 68 beats/min. Rhythm is regular. QRS [place] is Normal. OK interval is normal. QRS regi interval is normal. QT interval is normal. No Q waves. T waves are Normal. No ST changes noted. Clinical impression: NSR w/ Non-specific ST/T Changes and No evidence of ischemia. Interpreted by me. Reviewed by me. 14:24 Rate is 69 beats/min. Rhythm is regular. QRS [place] is Normal. [place] interval is normal. QRS regi interval is normal. QT interval is normal. No Q waves. T waves are Normal. No ST changes noted. Clinical impression: Abnormal EKG without significant change and No evidence of ischemia. Interpreted by me. Reviewed by me. Administered Medications: 10:37 Drug: Famotidine IVP 20 mg IVP once; dilute with 10 mL 0.9% NaCl; give over 2 minutes bp Route: IVP; Site: left forearm; 13:31 Follow up: Response: No adverse reaction me1 10:37 Drug: Aspirin PO Chewable Tablet 162 mg PO once Route: PO; bp 13:32 Follow up: Response: No adverse reaction me1 10:37 Drug: NS 0.9% IV 1000 ml IV at 125 ml/hr continuous Route: IV; Rate: 125 ml/hr; Site: bp left forearm; 10:47 Drug: Levalbuterol Inhalation 1.25 mg Inhalation once Route: Inhalation; bp 13:32 Follow up: Response: No adverse reaction; Wheezing diminished me1 10:47 Drug: Ipratropium Inhalation Aerosol 0.5 mg Inhalation once Route: Inhalation; bp 13:33 Follow up: Response: No adverse reaction; Wheezing diminished me1 13:30 Drug: Enoxaparin Sub-Q 1 mg/kg Sub-Q once Route: Sub-Q; Site: abdomen; me1 13:33 Follow up: Response: No adverse reaction me1 13:47 Drug: morphine IVP or IV 2 mg IVP once over 4 mins Route: IVP; Infused Over: 4 mins; me1 Site: left antecubital; 13:47 Drug: morphine IVP or IV 2 mg IVP once over 4 mins Route: IVP; Infused Over: 4 mins; me1 Site: left antecubital; 13:47 Drug: Ondansetron IVP 4 mg IVP once; over 2 minutes Route: IVP; Site: left antecubital; me1 13:47 Drug: levofloxacin IVPB 500 mg 100 ml IVPB once over 60 mins Volume: 100 ml; Route: me1 IVPB; Infused Over: 60 mins; Site: left antecubital; 14:32 Drug: morphine IVP or IV 2 mg IVP once over 4 mins Route: IVP; Infused Over: 4 mins; ko1 Site: left antecubital; 14:47 Follow up: Response: No adverse reaction; Pain is decreased ko1 14:39 Drug: Mucomyst - Acetylcysteine PO 600 mg PO once Route: PO; bp Disposition Summary: 04/26/24 14:26 Hospitalization Ordered Notes: Hospitalization Status: Observation regi Provider: Hua Hawthorne cha Location: Telemetry/MedSurg (observation) regi Condition: Fair regi Problem: new regi Symptoms: have improved regi Bed/Room Type: Standard regi Room Assignment: 220(04/26/24 14:53) sp Diagnosis - Chest pain on breathing regi - Atelectasis regi - Unspecified kidney failure - INSUFFICENCY regi - Pleurisy regi - Chest pain, unspecified - DEXTROCARDIA(04/26/24 14:33) regi - Hypercalcemia regi - Anemia, unspecified regi - Elevated white blood cell count regi Forms: - Medication Reconciliation Form regi - SBAR form regi - Leadership Thank You Letter regi Signatures: Dispatcher [employer] EDMS José Luis Kaufman MD MD cha Pinkerton, Shawna sp Blanchard, Shelby, RN RN ss Watson Schmitt, RN RN bp Nia Shell, RN RN ko1 Belkys Artis, RN RN me1 Corrections: (The following items were deleted from the chart) 10:06 10:06 BASIC METABOLIC PANEL+C.LAB.BRZ ordered. EDMS EDMS 10:06 10:06 CBC+H.LAB.BRZ ordered. EDMS EDMS 10:06 10:06 HEPATIC FUNCTION+C.LAB.BRZ ordered. EDMS EDMS 10:06 10:06 MAGNESIUM+C.LAB.BRZ ordered. EDMS EDMS 10:06 10:06 PROBNP+C.LAB.BRZ ordered. EDMS EDMS 10:06 10:06 PROTIME (+INR)+COAG.LAB.BRZ ordered. EDMS EDMS 10:06 10:06 Troponin High Sensitivity+C.LAB.BRZ ordered. EDMS EDMS 10:06 10:06 LIPASE+C.LAB.BRZ ordered. EDMS EDMS 10:06 10:06 Urinalysis+U.LAB.BRZ ordered. EDMS EDMS 10:06 10:06 Chest Single View+RAD.RAD.BRZ ordered. EDMS EDMS 14:33 14:26 Chest pain, unspecified regi regi 14:53 14:26 regi sp
[2024-04-26] MEDS ORDERED: MORPHINE 2 MG/ML SYR ONE (14:29)
[2024-04-26] MEDS ORDERED: ACETYLCYST 6,000 MG/30 ML VIAL ONE (14:35)
[2024-04-26] MEDS ORDERED: ONDANSETRON 4 MG/2 ML VIAL IV PRN (14:56)
[2024-04-26] MEDS: ACETAMINOPHEN 325 MG TABLET PO PRN (16:26)
[2024-04-26] MEDS: INSULIN REGULAR (HUMAN) 100 UNIT/ML SQ SCH (16:30)
[2024-04-26] MEDS ORDERED: methocarbamoL 500 MG TAB PO PRN (16:44)
[2024-04-26 17:22] VITALS: O2SAT 95
[2024-04-26] MEDS: methocarbamoL 500 MG TAB ONE (17:27)
[2024-04-26] MEDS: ENOXAPARIN 40 MG/0.4 ML SQ SCH (17:27)
[2024-04-26] MEDS: methocarbamoL 500 MG TAB PO ONE (17:36)
[2024-04-26] MEDS: carvediloL 25 MG TAB PO SCH (17:37)
[2024-04-26 18:28] VITALS: BMI 37.1
[2024-04-26] MEDS: HYDRALAZINE HCL 10 MG TABLET PO SCH (21:00)
[2024-04-26] MEDS: BENAZEPRIL 20 MG TAB PO SCH (21:00)
[2024-04-26] MEDS ORDERED: ENOXAPARIN 100 MG/ML SYR SQ SCH (21:00)
[2024-04-26] MEDS: FAMOTIDINE 20 MG/2 ML VIAL IV SCH (21:00)
[2024-04-26] MEDS: ATORVASTATIN 10 MG TAB PO SCH (21:00)
[2024-04-26] MEDS: ACETYLCYST 20% 800 MG/4 ML VIAL PO SCH (21:29)
[2024-04-27] MEDS: MORPHINE 2 MG/ML SYR IV PRN (04:12)
[2024-04-27 05:02] LABS: Specific Gravity > 1.030 (1.005-1.030); Urine Bilirubin NEGATIVE (Negative); Urine Blood Negative (Negative); Urine Clarity Clear (Clear); Urine Color Light-Yellow (Yellow); Urine Glucose NEGATIVE (Negative); Urine Ketones NEGATIVE (Negative); Urine Microscopic Reflex YN NO UMIC; Urine Nitrite NEGATIVE (Negative); Urine Protein NEGATIVE (Negative); Urine Urobilinogen Normal (Normal)
[2024-04-27] MEDS: PANTOPRAZOLE 40MG TABLET PO SCH (06:29)
[2024-04-27] MEDS: LEVOTHYROXINE SOD 0.1 MG TAB PO SCH (06:30)
[2024-04-27] MEDS: LEVOTHYROXINE SOD 0.075 MG TAB PO SCH (06:30)
[2024-04-27 06:54] LABS: Absolute Eosinophils 0.4 K/uL (0-0.5); Absolute Monocytes 0.8 K/uL (0.1-1.3); Absolute Neutrophil 6.2 K/uL (1.8-8.0); Basophils % 0.4 % (0-1.3); Hematocrit 34.8 % (36.0-45.0); Hemoglobin 10.8 g/dL (12.0-15.0); Lymphocytes % 21.3 % (15.3-44.8); MCH 24.5 pg (27.0-35.0); MPV 7.6 fL (7.6-11.3); Monocytes % 8.6 % (3.3-12.3); Neutrophils % 65.7 % (41.7-73.7); Platelets 306 thou/uL (152-406); RBC Red Blood Cell Count 4.41 M/uL (3.86-4.86); Red Cell Distribution Width 16.8 % (12.1-15.2)
[2024-04-27 07:04] LABS: Anion Gap 10.2 mEq/L (5.0-15.0); Potassium 4.2 mEq/L (3.5-5.1)
[2024-04-27] MEDS: AMLODIPINE 5 MG TAB PO SCH (09:00)
[2024-04-27] MEDS: NA CHLORIDE 0.9% 1,000 ML IV SCH (09:31)
[2024-04-27] MEDS: ASPIRIN EC 81 MG TAB PO SCH (09:32)
[2024-04-27] MEDS: MONTELUKAST 10 MG TAB PO SCH (09:33)
[2024-04-27] MEDS: Levofloxacin500mg IV 500 MG/100 ML BAG IV SCH (14:00)
[2024-04-27 16:36] VITALS: BP 136/50; TEMP 96.8
[2024-04-27 18:13] LABS: Anion Gap 7.3 mEq/L (5.0-15.0); Potassium 4.3 mEq/L (3.5-5.1)
--- NOTE | 2024-04-28 13:37 | SS ---
Date of Discharge: 04/27/2024 Chief Complaint: Chest pain. History Of Present Illness: This is a 74-year-old pleasant female patient who came into emergency ro om with acute onset of left-sided chest pain. The patient describes her chest pain located underneat h her left breast and it was more or less continuous pain and denies any fall, injury, cough, cold, c ongestion, fever, chills. Denies any rash on her chest wall. No hemoptysis. No radiation of pain a nywhere and no associated shortness of breath. The patient describes her chest pain as sharp in natu re and it gets worse when she takes a deep breath. After she was evaluated in the emergency room, I was contacted requesting admission to the hospital for observation after her workup was done in the e mergency room. When I saw her this morning she was sitting in chair, eating breakfast. Her was with her and overall feeling a lot better compared to yesterday. The patient states that she rec ently saw her grinding mill operator, Dr. Weber, in [place] for followup visit and had an echocardiogram done and she had some leg swelling problem, so he prescribed her furosemide and spironolactone that she h as recently started to take it and he is planning to do stress test in July of next year and I have advised her that she should reach out to him soon after discharge from our hospital and set up appoin tment to see him and try to get a stress test done earlier than what it was scheduled for. Allergies: TO SULFA, NITROFURANTOIN AND DOXYCYCLINE. Medications: List reviewed. Review of Systems: Cardiovascular: As mentioned above. All other systems reviewed and negative. Past Medical History: Significant for glaucoma, hypothyroidism, type 2 diabetes mellitus, thalassemi a minor, asthma, hypertension, dextrocardia, hyperlipidemia, esophageal spasm, gastritis, pancreatiti s, due to gallstones. Past Surgical History: Significant for tonsillectomy, thyroidectomy of the right lobe in 1975 and le ft lobe in 2009, cholecystectomy in 1994 and hysterectomy in 1990, which was partial and then subsequ ently total hysterectomy on December 11, 2023, and bladder suspension in 1990. Family History: Father , had coronary artery disease and myocardial infarction. Mother , de tails unknown. Brother , had bladder cancer and sister had diabetes and thyroid disorder. Social History: Negative for smoking and alcohol use. Physical Examination: Vital Signs: Temperature 97, pulse 67, respiratory rate 16, blood pressure 133/52, oxygen saturation 95%. Height 5 feet 2 inches, weight 203 pounds. General: Awake, alert, oriented, not in distress. HEENT: Head atraumatic, normocephalic. Conjunctivae nonerythematous. Sclerae white. Mouth, no thr ush or edema noted. Ears/Nose, no mass, lesion, discharge noted. Neck: Supple. No JVD, lymph nodes, bruit, thyromegaly noted. Lungs: Bilateral good equal air entry. Clear to auscultation. No rhonchi. No rales. Heart: Normal heart sounds, no murmur or gallop. Abdomen: Soft, bowel sounds normal. No guarding, rigidity, tenderness, mass, hepatosplenomegaly, dis tention, or bruit noted. Extremities: No leg edema. No calf tenderness. Skin: No rash, ulcer, cellulitis. Lymphatics: No lymph node enlargement in neck, supraclavicular, infraclavicular region. Neuro: No focal neurological deficit. Chest: Unremarkable. External Genitalia: Deferred. Rectal: Deferred. Laboratory Data: Yesterday, WBC 11.2, hemoglobin 11.4, platelets 328. This morning WBC 9.5, hemoglo bin 10.8, and platelets 306. For chemistry yesterday, sodium 135, potassium 4.3, chloride 102, bicar b 26, BUN 31, creatinine 1.35, glucose 223. Lactic acid 1.1. Liver function tests unremarkable. Li pase 11. Lactic acid 1.1. This morning sodium 134, potassium 4.2, chloride 102, bicarb 26, BUN 30, creatinine 1.45, glucose 124, calcium 11.3. Urinalysis was negative. Chest x-ray had shown mild lef t basilar atelectasis. CAT scan of the chest per PE protocol was negative for pulmonary embolism. I t did show a 7 mm left lower lobe nodule, which is slightly enlarged from 2021. It was 5 mm size in 2021. Hospital Course: After patient was evaluated in the emergency room, she was admitted to the hospital for observation. Her [place] was ruled out by getting serial cardiac enzymes. Initial troponin level wa s 4 and repeat troponin level was 3.2. Her symptom of chest pain had started about 3 days before she came into emergency room, so we do not have any concern about any acute myocardial infarction type o f problem. Her symptoms are pleuritic in nature. She was given some pain medication which was morph ine and yesterday evening she was still complaining of pain and because her morphine dose was not due at that time, we started her on methocarbamol and that actually has helped to alleviate her pain. O n physical exam, which I examined in presence of her today and there is no evidence of any ra sh on anterior chest wall including breast area or lateral or posterior chest wall area. The patient was told that in case if she notices any rash, she needs to come see me right away as it would indic ate shingles. After she received her CAT scan of the chest per PE protocol test using contrast dye, she was given acetylcysteine for her kidney protection and this morning I have started her on IV flui d. We ordered normal saline at 125 cc/hour for 1 L of fluid to be given for her hypercalcemia and he r abnormal kidney numbers that we have seen and our plan was to repeat blood work this evening and de pending on the blood work, plan was to possibly discharge her to go home, provided we see improvement in the blood test and all those details were discussed with her and her this morning. Furth er workup for hypercalcemia was ordered which included immunoelectrophoresis, immunoglobulin levels, protein electrophoresis, urine for Bence Jacobs protein and parathyroid hormone level as well as vitam in D level. We will follow up on all those test results on an outpatient basis. Around 5 p.m. today , we repeated her chemistry panel and it showed sodium 135, potassium 4.3, chloride 103, bicarb 29, B UN 29, creatinine 1.45, glucose 167, and calcium level 11.2. So with that when nurse contacted me wi th all this information, I informed nurse that my recommendation is for us to continue IV fluid gisele l saline at 100 cc/hour overnight and repeat blood work tomorrow morning. Depending on her calcium l evel, we will decide whether she can go home or not or we need to provide appropriate intervention fo r hypercalcemia with use of certain medication and all those details were discussed with her as well when I saw her. When I communicated all these details with the nurse, she talked to the patient and she informed me that the patient does not want to stay in the hospital and wants to go home. At that time, I informed nurse that if the patient wants to go home this evening, she will have to leave [facility] against medical advice as I am not medically ready for her to go home as per my recommendation and treatment plan as I have discussed with her already earlier today and subsequently nurse communic ated with the patient and then called me and informed me that the patient is leaving hospital against medical advice. Discharge Medications And Instructions: Continue all prior home medication except following changes. 1.Stop pantoprazole. 2.Stop furosemide. 3.Stop spironolactone. 4.Start famotidine 40 mg 1 tablet by mouth daily at bedtime. 5.Start methocarbamol 500 mg 1 tablet by mouth 3 times a day as needed for pain. 6.Use [id number] Tylenol 500 mg 4 times a day as needed for pain. 7.Follow up at my office next week on . 8.Follow up with grinding mill operator, Dr. Weber, as soon as possible. 9.Drink 60 ounces water daily. 10.Do not take any Aleve, Motrin, ibuprofen, or naproxen type of medication. Final Diagnoses: 1.Chest pain. 2.Pleurisy. 3.Acute kidney injury. 4.Hypercalcemia. 5.Anemia, unspecified. 6.Hypertension. 7.Hypothyroidism, postsurgical. 8.Type 2 diabetes mellitus. 9.Thalassemia minor. 10.Hyperlipidemia. 11.Gastroesophageal reflux disease. 12.Total time spent 90 minutes. JUN/MODL Voice ID: [id number] Report ID: [id number]
--- NOTE | 2024-04-28 14:15 | EKG ---
Test Date: 2024-04-26 Test Time: 14:27:12 Tray Room Worker: YADIEL MEASUREMENT RESULTS: Intervals: Rate: 69 SD: QRSD: 140 QT: 428 QTc: 458 [place]: P: 19 SD: QRS: 153 T: 2 INTERPRETIVE STATEMENTS: Sinus rhythm Right bundle branch block Left posterior fascicular block Bifascicular block Septal infarct, age undetermined Inferior infarct, age undetermined Abnormal ECG Compared to ECG 04/26/2024 12:42:24 Left posterior fascicular block now present Left anterior fascicular block no longer present Bifascicular block still present Myocardial infarct finding still present Electronically Signed On 04-28-24 14:12:51 CORPORATE COUNSEL by Mitesh Sears
--- NOTE | 2024-04-28 14:16 | EKG ---
Test Date: 2024-04-26 Test Time: 12:42:24 Pound Keeper: YADIEL MEASUREMENT RESULTS: Intervals: Rate: 69 ID: [id number] QRSD: 138 QT: 430 QTc: 460 [place]: P: 38 ID: [id number] QRS: -84 T: 70 INTERPRETIVE STATEMENTS: Normal sinus rhythm Right bundle branch block Left anterior fascicular block Bifascicular block Septal infarct, age undetermined Abnormal ECG Compared to ECG 04/26/2024 10:11:15 No significant changes Electronically Signed On 04-28-24 14:12:56 REGIONAL MERCHANDISING MANAGER by Mitesh Sears
--- NOTE | 2024-04-29 10:20 | EKG ---
Test Date: 2024-04-26 Test Time: 10:11:15 Cupola Tapper: YADIEL MEASUREMENT RESULTS: Intervals: Rate: 68 GA: 144 QRSD: 140 QT: 410 QTc: 435 [place]: P: 60 GA: 144 QRS: -80 T: 60 INTERPRETIVE STATEMENTS: Normal sinus rhythm Right bundle branch block Left anterior fascicular block Bifascicular block Septal infarct, age undetermined Abnormal ECG Compared to ECG 08/13/2023 11:55:40 Left anterior fascicular block now present Bifascicular block now present Myocardial infarct finding now present Right ventricular hypertrophy no longer present T-wave abnormality no longer present Possible ischemia no longer present Electronically Signed On 04-29-24 10:20:00 STAGE HAND by Miguel A Kennedy
[2024-04-29 17:14] LABS: Immunofixation Electrophoresis Normal pattern.
== END 2024-04-27 18:50 | disposition left against medical advice (07) ==
LOC: ER 09:55 → ERHOLD 14:36 → 2ND 15:43
PROVIDERS: ADMIT Internal Medicine; ATTEND Internal Medicine
DX: R09.1 Pleurisy (principal); R07.9 Chest pain, unspecified; E11.9 Type 2 diabetes mellitus without complications; I10 Essential (primary) hypertension; J45.909 Unspecified asthma, uncomplicated; E78.5 Hyperlipidemia, unspecified; K85.90 Acute pancreatitis without necrosis or infection, unspecified; E83.52 Hypercalcemia; D72.829 Elevated white blood cell count, unspecified; K21.9 Gastro-esophageal reflux disease without esophagitis; D56.3 Thalassemia minor; N17.9 Acute kidney failure, unspecified; D64.9 Anemia, unspecified; E89.0 Postprocedural hypothyroidism; Z88.2 Allergy status to sulfonamides; Z88.3 Allergy status to other anti-infective agents; J98.11 Atelectasis
CPT/HCPCS: 93005 ×2; 87040 ×2; 85025 ×2; 80048 ×3; 36415; 83735; 85610; 82947 ×4; 80076; 83605; 81003; 84484 ×2; 83690; 83970; 82306; 86335; 83880; 82784 ×3; 86334; 84165; 71275; 71045; 94010 ×2; Q9967; J1650 ×2; J7614; J7608; J7644; J2270 ×2; J2405; J7030 ×2; G0378